=== PATIENT | male | born 1955 ===

== ENCOUNTER 2021-09-23 13:50 | Inpatient (IN) | payer MEDICARE, MEDICAID ==
[2021-09-23] MEDS ORDERED: Sodium Chloride 0.9% 1,000 ML IV ONE (14:38)
[2021-09-23] MEDS: Piperacillin/Tazobactam 3.375 GM in Sodium Chloride 0.9% 100 ML IV SCH ×2 (15:00→20:38)
--- NOTE | 2021-09-23 15:33 | PCM.HP.2 ---
H&P History of Present Illness - General Date of Service: 09/23/21 - History of Present Illness Initial Comments - Free Text/Narative: 66 yo male with pmh of hypertension who last night while going to the bathroom passed out. He was seen in [place] an he was noted to be hypotensive with WBC of 19,000 and Hgb of 15. He was bolused 3 liters and given vancomycin and zosyn. CT scan of abdomen and pelvis reported rectal wall thickening and inflammation. He was started on levophed. Repeat Hgb this morning was 13. It was reported to me that his stools are red and infrequent. Provider in [place] called requesting transfer as they have no ICU beds. They had tried transfe rring out but all other referral centers in the [facility] are full. I did notify provider that our GI and IR services are limited but it was felt He would be better stabilized here in [place]. - Related Data Allergies/Adverse Reactions: Allergies Allergy/AdvReac Type Severity Reaction Status Date / Time No Known Allergies Allergy Verified 09/23/21 14:29 H&P Review of Systems - Review of Systems: Review Of Systems: Comprehensive ROS is negative, except as noted in HPI. Exam - Exam Exam: See Below - Vital Signs Weight: 91 kg - Exam General: Alert, Oriented HEENT: Mucosa Moist & [place] Lungs: Clear to Auscultation, Normal Respiratory Effort Cardiovascular: Regular Rate, Regular Rhythm GI/Abdominal Exam: Normal Bowel Sounds, Soft, Non-Tender Extremities: Non-Tender, No Pedal Edema Skin: Warm, Dry, Intact Neurological: No: Focal Deficit - Patient Data Result Diagrams: 09/24/21 14:05 09/24/21 02:05 Problem List Initiated/Reviewed/Updated: Yes Orders Last 24hrs: Active Orders 24 hr Category Date Time Status CBC WITH AUTO DIFF [HEME] Routine Lab 09/23/21 14:18 Ordered COMPREHENSIVE METABOLIC PN,CMP [CHEM] Routine Lab 09/23/21 14:18 Ordered CULTURE BLOOD [BC] Stat Lab 09/23/21 14:48 Ordered CULTURE BLOOD [BC] Stat Lab 09/23/21 14:48 Ordered INR,PT,PROTHROMBIN TIME [COAG] Routine Lab 09/23/21 14:18 Ordered LACTIC ACID SEPSIS W/ REFLEX [LACTATE SEPSIS W/ REFLEX] Lab 09/23/21 14:19 Ordered [CHEM] Routine RED BLOOD CELLS LP [BBK] Stat Lab 09/23/21 14:53 Ordered TYPE AND SCREEN [BBK] Stat Lab 09/23/21 14:53 Ordered Norepinephrine Bit/0.9 % NaCl [Norepinephr-0.9% NaCl 4 Med 09/23/21 14:30 Active mg/250] 4 mg in 250 ml IV TITRATE Pharmacy to Dose - Vancomycin Med 09/23/21 15:00 Ordered 1 dose .XX ASDIRECTED Piperacillin/Tazobactam [Piperacil-Tazobact] 3.375 gm Med 09/23/21 15:00 Active Sodium Chloride 0.9% [Normal Saline AdvBag] 100 ml IV Q6H Sodium Chloride 0.9% [Normal Saline] 1,000 ml Med 09/23/21 14:38 Active IV .Bolus Blood Culture x2 Reflex Set [OM.PC] Stat Oth 09/23/21 14:48 Ordered Medication Orders Norepinephrine Bitartrate (Norepinephr-0.9% Nacl 4 Mg/250) 4 mg in 250 mls @ 7.5 mls/hr IV TITRATE VEE; Protocol Sodium Chloride (Normal Saline) 1,000 mls @ 999 mls/hr IV .Bolus ONE Stop: 09/23/21 15:38 Piperacillin Sod/Tazobactam (Sod 3.375 gm/ Sodium Chloride) 100 mls @ 200 mls/hr IV Q6H VEE Vancomycin HCl (Pharmacy To Dose - Vancomycin) 1 dose .XX ASDIRECTED [facility] Assessment/Plan Comment:: 65 yo male admitted for septic shock with likely source being colon and GI bleed Septic shock: will place central and a-line, continue Levophed Colitis: vancomycin and Zosyn
[2021-09-23 16:15] LABS: CARBON DIOXIDE,CO2 22.8 mmol/L (21.0-32.0); POTASSIUM,K 3.3 mmol/L (3.5-5.1)
--- NOTE | 2021-09-23 16:33 | PCM.PR.CLI ---
Central Line Insertion - Central Line Insertion Site: internal jugular (R) Prep: CDC/MBT Guidelines Lumen: triple Local Anesthesia - Lidocaine (Xylocaine): 2% Plain Local Anesthetic Volume: 2cc Ultrasound guided: Yes Micropuncture kit used: No CL Complications: No Secured with suture: Yes Post placement confirmation: all ports aspirated, all ports flushed Dressing applied: by provider, chlorhexidine disc used Central line comment: Anesthesia start 1500, stop 1550
--- NOTE | 2021-09-23 16:34 | PCM.PR.ALI ---
Arterial Line Insertion - Arterial Line Insertion Arterial Line Indication: hemodynamic monitoring Site: radial (L) Allens test: negative Prep: CDC/MBT Guidelines, Sterile Drapes, Chlorhexidine Gauge: 20g Local Anesthesia - Lidocaine (Xylocaine): 2% Plain Local Anesthetic Volume: 1cc Ultrasound guided: Yes Secured with suture: No Dressing applied: by provider Complications: No Arterial line comment: Anesthesia start:1550, Stop: 1620
[2021-09-23] MEDS: VANCOmycin 1.5 GM/300 ML 1.5 GM in Premix Bag 1 BAG IV SCH (17:00)
--- NOTE | 2021-09-23 17:17 | PN ---
THC Physician - Brief Progress [id number]/19/2021 17:02[facility] Erin Cheema ND - AMANDA (HUSSEIN) - AMANDA ICUNOLACiarra HUTSONpatrick of Service 09/23/2021 17:02HPI/Events of Note eICU admission [id number] male currently made to the ICU for septic shock secondary to int ra-abdominal source. Patient presented outside hospital with complaints of syncope and was noted to be hypotensive with associated leukocytosis. Patient was initiated on vancomycin/Zosyn and was given a sepsis bolus without improvement thus initiated on Levophed. CT abdomen revealed rectal thickenin g/inflammation and patient did have hematochezia as well. Patient was noted to have a 2 g drop in he moglobin thus transferred to [facility] for escalation of care and GI/IR evaluation.Patient seen on camera, laying flat in bed, appears to be sleeping at this time and does appear very comfortable currently on nasal cannula.Vital signs reviewedLabs/EMR reviewedSeptic shockLower GI bleedAKIRecommendations-Agre e with broad-spectrum antibiotic coverage-Blood culture sent and pending-Recommend stool culture if p ossible and C. difficile rule out if not already done at OSH. If patient is hypoxic recommend obtaini ng CXR.-Agree with serial Hb trend given concern for GI bleed. Started protonix BID, likely can soto e to daily dosing if hb is stable and no longer having hematochezia. -Continue to trend Cr, Avoid nep hrotoxins. Thank you for allowing us to participate in the care of your patient.Interventions Major-H ypotension - evaluation and management, Infection - evaluation and management, Sepsis - evaluation an d management, Shock - evaluation and managementIntermediate-Bleeding - evaluation and treatment with blood products
--- NOTE | 2021-09-23 17:54 | CR ---
Indication: Line placement, hypoxia Technique: Chest 1 view Comparison: None Findings/Impression: Right internal jugular central venous catheter tip terminates at the level of the cavoatrial junction. No pneumothorax. Normal cardiac size. Questionable faint nodular opacities scattered throughout the lungs could represent infection. Consider chest CT for further evaluation if clinically indicated. No effusion. No acute osseous abnormality. Surgical clips in the right upper quadrant. Dictated by Celsa Farley MD @ 09/23/2021 5:54:02 PM (Electronically Signed)
[2021-09-23 18:13] LABS: CORONAVIRUS COVID-19 NAA NEGATIVE (NEGATIVE); INFLUENZA A NAA NEGATIVE (NEGATIVE); INFLUENZA B NAA NEGATIVE (NEGATIVE)
[2021-09-23] MEDS ORDERED: Ondansetron 4 MG/2 ML SDV IVPUSH PRN (20:53)
[2021-09-23] MEDS ORDERED: Acetaminophen 325 MG Tab PO PRN (20:59)
[2021-09-23] MEDS ORDERED: Pantoprazole 40 MG/10 ML Syringe IVPUSH SCH (21:00)
[2021-09-23] MEDS: Pantoprazole 40 MG/10 ML Syringe IVPUSH SCH (21:00)
[2021-09-23] MEDS: Acetaminophen 325 MG Tab PO PRN (21:40)
[2021-09-24] MEDS: Sodium Chloride 0.9% 1,000 ML IV SCH ×4 (00:05→21:43)
[2021-09-24 02:34] LABS: POTASSIUM,K 3.3 mmol/L (3.5-5.1)
[2021-09-24] MEDS: Piperacillin/Tazobactam 3.375 GM in Sodium Chloride 0.9% 100 ML IV SCH ×4 (03:53→21:23)
[2021-09-24] MEDS: Acetaminophen 325 MG Tab PO PRN ×4 (03:57→22:00)
[2021-09-24] MEDS ORDERED: Sodium Chloride 0.65% Nasal Spray 45 ML Bottle NAS PRN (04:18)
[2021-09-24] MEDS: Pantoprazole 40 MG/10 ML Syringe IVPUSH SCH ×2 (08:06→21:08)
[2021-09-24] MEDS ORDERED: Potassium Chloride 10% 20 MEQ/15 ML Soln 30 ML UD Cup PO ONE (11:31)
--- NOTE | 2021-09-24 15:04 | PCM.PN ---
- General Info Date of Service: 09/24/21 - Review of Systems Systems Review Comment:: abdominal pain controlled, having loose stools - Patient Data Vitals - Most Recent: Last Vital Signs Temp 38.1 C 09/24/21 14:00 Pulse 93 09/24/21 14:00 Resp 22 H 09/24/21 14:00 BP 119/57 L 09/24/21 14:00 Pulse Ox 94 L 09/24/21 14:00 Weight - Most Recent: 91 kg I&O - Last 24 Hours: Intake & Output 09/24/21 09/24/21 09/24/21 06:59 14:59 22:59 Intake Total 90 480 Output Total 1625 Balance -1535 480 Lab Results Last 24 Hours: Laboratory Results - last 24 hr 09/23/21 09/23/21 09/23/21 Range/Units 15:20 15:20 15:20 WBC 15.11 H (4.0-11.0) K/uL RBC 4.29 L (4.50-5.90) M/uL Hgb 13.3 (13.0-17.0) g/dL Hct 38.6 (38.0-50.0) % MCV 90.0 (80.0-98.0) fL MCH 31.0 (27.0-32.0) pg MCHC 34.5 (31.0-37.0) g/dL RDW Std Deviation 44.5 (28.0-62.0) fl RDW Coeff of Yaneli 14 (11.0-15.0) % Plt Count 175 (150-400) K/uL MPV 10.40 (7.40-12.00) fL Neut % (Auto) 83.1 H (48.0-80.0) % Lymph % (Auto) 6.2 L (16.0-40.0) % [place] % (Auto) 10.5 (0.0-15.0) % Eos % (Auto) 0.1 (0.0-7.0) % Baso % (Auto) 0.1 (0.0-1.5) % Neut # (Auto) 12.6 H (1.4-5.7) K/uL Lymph # (Auto) 0.9 (0.6-2.4) K/uL [place] # (Auto) 1.6 H (0.0-0.8) K/uL Eos # (Auto) 0.0 (0.0-0.7) K/uL Baso # (Auto) 0.0 (0.0-0.1) K/uL Nucleated RBC % 0.0 /100WBC Nucleated RBCs # 0 K/uL INR 1.27 Sodium 141 (136-148) mmol/L Potassium 3.3 L (3.5-5.1) mmol/L Chloride 108 H (98-107) mmol/L Carbon Dioxide 22.8 (21.0-32.0) mmol/L BUN 23 H (7.0-18.0) mg/dL Creatinine 2.3 H (0.8-1.3) mg/dL Est Cr Clr Drug Dosing 30.98 mL/min Estimated GFR (MDRD) 28.7 ml/min Glucose 201 H (74-106) mg/dL Lactic Acid (0.4-2.0) mmol/L Calcium 7.6 L (8.5-10.1) mg/dL Total Bilirubin 0.7 (0.2-1.0) mg/dL AST 15 (15-37) IU/L ALT 17 (14-63) IU/L Alkaline Phosphatase 102 (46-116) U/L Total Protein 5.9 L (6.4-8.2) g/dL Albumin 2.7 L (3.4-5.0) g/dL Globulin 3.2 (2.6-4.0) g/dL Albumin/Globulin Ratio 0.8 L (0.9-1.6) Influenza Type A RNA (NEGATIVE) Influenza Type B RNA (NEGATIVE) SARS-CoV-2 RNA ([place]) (NEGATIVE) Blood Type Antibody Screen Crossmatch 09/23/21 09/23/21 09/23/21 Range/Units 15:20 15:31 16:45 WBC (4.0-11.0) K/uL RBC (4.50-5.90) M/uL Hgb (13.0-17.0) g/dL Hct (38.0-50.0) % MCV (80.0-98.0) fL MCH (27.0-32.0) pg MCHC (31.0-37.0) g/dL RDW Std Deviation (28.0-62.0) fl RDW Coeff of Yaneli (11.0-15.0) % Plt Count (150-400) K/uL MPV (7.40-12.00) fL Neut % (Auto) (48.0-80.0) % Lymph % (Auto) (16.0-40.0) % [place] % (Auto) (0.0-15.0) % Eos % (Auto) (0.0-7.0) % Baso % (Auto) (0.0-1.5) % Neut # (Auto) (1.4-5.7) K/uL Lymph # (Auto) (0.6-2.4) K/uL [place] # (Auto) (0.0-0.8) K/uL Eos # (Auto) (0.0-0.7) K/uL Baso # (Auto) (0.0-0.1) K/uL Nucleated RBC % /100WBC Nucleated RBCs # K/uL INR Sodium (136-148) mmol/L Potassium (3.5-5.1) mmol/L Chloride (98-107) mmol/L Carbon Dioxide (21.0-32.0) mmol/L BUN (7.0-18.0) mg/dL Creatinine (0.8-1.3) mg/dL Est Cr Clr Drug Dosing mL/min Estimated GFR (MDRD) ml/min Glucose (74-106) mg/dL Lactic Acid 2.2 H* (0.4-2.0) mmol/L Calcium (8.5-10.1) mg/dL Total Bilirubin (0.2-1.0) mg/dL AST (15-37) IU/L ALT (14-63) IU/L Alkaline Phosphatase (46-116) U/L Total Protein (6.4-8.2) g/dL Albumin (3.4-5.0) g/dL Globulin (2.6-4.0) g/dL Albumin/Globulin Ratio (0.9-1.6) Influenza Type A RNA NEGATIVE (NEGATIVE) Influenza Type B RNA NEGATIVE (NEGATIVE) SARS-CoV-2 RNA ([place]) NEGATIVE (NEGATIVE) Blood Type B POSITIVE Antibody Screen NEGATIVE Crossmatch See Detail 09/23/21 09/23/21 09/24/21 Range/Units 20:00 20:31 02:05 WBC 16.49 H (4.0-11.0) K/uL RBC 4.13 L (4.50-5.90) M/uL Hgb 12.5 L (13.0-17.0) g/dL Hct 36.9 L (38.0-50.0) % MCV 89.3 (80.0-98.0) fL MCH 30.3 (27.0-32.0) pg MCHC 33.9 (31.0-37.0) g/dL RDW Std Deviation 44.0 (28.0-62.0) fl RDW Coeff of Yaneli 14 (11.0-15.0) % Plt Count 196 (150-400) K/uL MPV 9.60 (7.40-12.00) fL Neut % (Auto) 81.4 H (48.0-80.0) % Lymph % (Auto) 9.2 L (16.0-40.0) % [place] % (Auto) 9.1 (0.0-15.0) % Eos % (Auto) 0.2 (0.0-7.0) % Baso % (Auto) 0.1 (0.0-1.5) % Neut # (Auto) 13.4 H (1.4-5.7) K/uL Lymph # (Auto) 1.5 (0.6-2.4) K/uL [place] # (Auto) 1.5 H (0.0-0.8) K/uL Eos # (Auto) 0.0 (0.0-0.7) K/uL Baso # (Auto) 0.0 (0.0-0.1) K/uL Nucleated RBC % 0.0 /100WBC Nucleated RBCs # 0 K/uL INR Sodium 144 (136-148) mmol/L Potassium 3.3 L (3.5-5.1) mmol/L Chloride 110 H (98-107) mmol/L Carbon Dioxide 22.0 (21.0-32.0) mmol/L BUN 22 H (7.0-18.0) mg/dL Creatinine 2.1 H (0.8-1.3) mg/dL Est Cr Clr Drug Dosing 33.93 mL/min Estimated GFR (MDRD) 31.9 ml/min Glucose 147 H (74-106) mg/dL Lactic Acid 0.7 (0.4-2.0) mmol/L Calcium 7.8 L (8.5-10.1) mg/dL Total Bilirubin 1.0 (0.2-1.0) mg/dL AST 16 (15-37) IU/L ALT 16 (14-63) IU/L Alkaline Phosphatase 83 (46-116) U/L Total Protein 5.7 L (6.4-8.2) g/dL Albumin 2.6 L (3.4-5.0) g/dL Globulin 3.1 (2.6-4.0) g/dL Albumin/Globulin Ratio 0.8 L (0.9-1.6) Influenza Type A RNA (NEGATIVE) Influenza Type B RNA (NEGATIVE) SARS-CoV-2 RNA ([place]) (NEGATIVE) Blood Type Antibody Screen Crossmatch 09/24/21 09/24/21 09/24/21 Range/Units 02:05 08:17 14:05 WBC 16.00 H 15.25 H 13.93 H (4.0-11.0) K/uL RBC 4.07 L 3.97 L 3.87 L (4.50-5.90) M/uL Hgb 12.6 L 12.1 L 11.8 L (13.0-17.0) g/dL Hct 36.7 L 35.8 L 34.7 L (38.0-50.0) % MCV 90.2 90.2 89.7 (80.0-98.0) fL MCH 31.0 30.5 30.5 (27.0-32.0) pg MCHC 34.3 33.8 34.0 (31.0-37.0) g/dL RDW Std Deviation 44.9 45.5 45.2 (28.0-62.0) fl RDW Coeff of Yaneli 14 14 14 (11.0-15.0) % Plt Count 170 181 168 (150-400) K/uL MPV 9.90 10.30 10.40 (7.40-12.00) fL Neut % (Auto) (48.0-80.0) % Lymph % (Auto) (16.0-40.0) % [place] % (Auto) (0.0-15.0) % Eos % (Auto) (0.0-7.0) % Baso % (Auto) (0.0-1.5) % Neut # (Auto) (1.4-5.7) K/uL Lymph # (Auto) (0.6-2.4) K/uL [place] # (Auto) (0.0-0.8) K/uL Eos # (Auto) (0.0-0.7) K/uL Baso # (Auto) (0.0-0.1) K/uL Nucleated RBC % 0.0 0.0 0.0 /100WBC Nucleated RBCs # 0 0 0 K/uL INR Sodium (136-148) mmol/L Potassium (3.5-5.1) mmol/L Chloride (98-107) mmol/L Carbon Dioxide (21.0-32.0) mmol/L BUN (7.0-18.0) mg/dL Creatinine (0.8-1.3) mg/dL Est Cr Clr Drug Dosing mL/min Estimated GFR (MDRD) ml/min Glucose (74-106) mg/dL Lactic Acid (0.4-2.0) mmol/L Calcium (8.5-10.1) mg/dL Total Bilirubin (0.2-1.0) mg/dL AST (15-37) IU/L ALT (14-63) IU/L Alkaline Phosphatase (46-116) U/L Total Protein (6.4-8.2) g/dL Albumin (3.4-5.0) g/dL Globulin (2.6-4.0) g/dL Albumin/Globulin Ratio (0.9-1.6) Influenza Type A RNA (NEGATIVE) Influenza Type B RNA (NEGATIVE) SARS-CoV-2 RNA ([place]) (NEGATIVE) Blood Type Antibody Screen Crossmatch Jose Results Last 24 Hours: Microbiology 09/24/21 06:35 C. difficile Antigen & Toxins A,B - Final Stool / Feces 09/23/21 15:25 Anaerobic Blood Culture - Final Blood - Venous Med Orders - Current: Current Medications Acetaminophen (Acetaminophen 325 Mg Tab) 650 mg PO Q6H PRN PRN Reason: Fever Last Admin: 09/24/21 09:58 Dose: 650 mg Documented by: Acetaminophen (Acetaminophen 325 Mg Tab) 650 mg PO Q6H PRN PRN Reason: PAIN Norepinephrine Bitartrate (Norepinephr-0.9% Nacl 4 Mg/250) 4 mg in 250 mls @ 7.5 mls/hr IV TITRATE VEE; Protocol Last Titration: 09/24/21 13:45 Dose: 0 mcg/min, 0 mls/hr Documented by: Piperacillin Sod/Tazobactam (Sod 3.375 gm/ Sodium Chloride) 100 mls @ 200 mls/hr IV Q6H [facility] Last Admin: 09/24/21 14:24 Dose: 200 mls/hr Documented by: Vancomycin HCl 1.5 gm/ Premix 300 mls @ 200 mls/hr IV Q24H [facility] Last Admin: 09/23/21 17:00 Dose: 200 mls/hr Documented by: Sodium Chloride (Normal Saline) 1,000 mls @ 125 mls/hr IV ASDIRECTED [facility] Last Admin: 09/24/21 08:05 Dose: 125 mls/hr Documented by: Ondansetron HCl (Ondansetron 4 Mg/2 Ml Sdv) 4 mg IVPUSH Q6H PRN PRN Reason: Nausea/Vomiting Pantoprazole Sodium (Pantoprazole 40 Mg/10 Ml Syringe) 40 mg IVPUSH Q12HR [facility] Last Admin: 09/24/21 08:06 Dose: 40 mg Documented by: Sodium Chloride (Sodium Chloride 0.65% Nasal [place] 45 Ml Bottle) 0 ml DUKE Q2H PRN PRN Reason: Dryness Vancomycin HCl (Pharmacy To Dose - Vancomycin) 1 dose .XX ASDIRECTED [facility] Discontinued Medications Sodium Chloride (Normal Saline) 1,000 mls @ 999 mls/hr IV .Bolus ONE Stop: 09/23/21 15:38 Last Admin: 09/23/21 14:40 Dose: 999 mls/hr Documented by: Pantoprazole Sodium (Pantoprazole 40 Mg/10 Ml Syringe) 40 mg IVPUSH Q12HR [facility] Last Admin: 09/23/21 21:18 Dose: Not Given Documented by: Potassium Chloride (Potassium Chloride 10% 20 Meq/15 Ml Soln 30 Ml Ud Cup) 40 meq PO ONETIME ONE Stop: 09/24/21 11:32 Last Admin: 09/24/21 12:02 Dose: 40 meq Documented by: - Exam Central Line Total Time: 0Days 9Hours General: Alert, Oriented Neck: Supple Lungs: Clear to Auscultation, Normal Respiratory Effort Cardiovascular: Regular Rate, Regular Rhythm GI/Abdominal Exam: Soft, Non-Tender, No Distention Extremities: Non-Tender, No Pedal Edema Skin: Warm, Dry, Intact Neurological: No New Focal Deficit - Patient Data Lab Results Last 24 hrs: Laboratory Results - last 24 hr 09/23/21 09/23/21 09/23/21 Range/Units 15:20 15:20 15:20 WBC 15.11 H (4.0-11.0) K/uL RBC 4.29 L (4.50-5.90) M/uL Hgb 13.3 (13.0-17.0) g/dL Hct 38.6 (38.0-50.0) % MCV 90.0 (80.0-98.0) fL MCH 31.0 (27.0-32.0) pg MCHC 34.5 (31.0-37.0) g/dL RDW Std Deviation 44.5 (28.0-62.0) fl RDW Coeff of Yaneli 14 (11.0-15.0) % Plt Count 175 (150-400) K/uL MPV 10.40 (7.40-12.00) fL Neut % (Auto) 83.1 H (48.0-80.0) % Lymph % (Auto) 6.2 L (16.0-40.0) % [place] % (Auto) 10.5 (0.0-15.0) % Eos % (Auto) 0.1 (0.0-7.0) % Baso % (Auto) 0.1 (0.0-1.5) % Neut # (Auto) 12.6 H (1.4-5.7) K/uL Lymph # (Auto) 0.9 (0.6-2.4) K/uL [place] # (Auto) 1.6 H (0.0-0.8) K/uL Eos # (Auto) 0.0 (0.0-0.7) K/uL Baso # (Auto) 0.0 (0.0-0.1) K/uL Nucleated RBC % 0.0 /100WBC Nucleated RBCs # 0 K/uL INR 1.27 Sodium 141 (136-148) mmol/L Potassium 3.3 L (3.5-5.1) mmol/L Chloride 108 H (98-107) mmol/L Carbon Dioxide 22.8 (21.0-32.0) mmol/L BUN 23 H (7.0-18.0) mg/dL Creatinine 2.3 H (0.8-1.3) mg/dL Est Cr Clr Drug Dosing 30.98 mL/min Estimated GFR (MDRD) 28.7 ml/min Glucose 201 H (74-106) mg/dL Lactic Acid (0.4-2.0) mmol/L Calcium 7.6 L (8.5-10.1) mg/dL Total Bilirubin 0.7 (0.2-1.0) mg/dL AST 15 (15-37) IU/L ALT 17 (14-63) IU/L Alkaline Phosphatase 102 (46-116) U/L Total Protein 5.9 L (6.4-8.2) g/dL Albumin 2.7 L (3.4-5.0) g/dL Globulin 3.2 (2.6-4.0) g/dL Albumin/Globulin Ratio 0.8 L (0.9-1.6) Influenza Type A RNA (NEGATIVE) Influenza Type B RNA (NEGATIVE) SARS-CoV-2 RNA ([place]) (NEGATIVE) Blood Type Antibody Screen Crossmatch 09/23/21 09/23/21 09/23/21 Range/Units 15:20 15:31 16:45 WBC (4.0-11.0) K/uL RBC (4.50-5.90) M/uL Hgb (13.0-17.0) g/dL Hct (38.0-50.0) % MCV (80.0-98.0) fL MCH (27.0-32.0) pg MCHC (31.0-37.0) g/dL RDW Std Deviation (28.0-62.0) fl RDW Coeff of Yaneli (11.0-15.0) % Plt Count (150-400) K/uL MPV (7.40-12.00) fL Neut % (Auto) (48.0-80.0) % Lymph % (Auto) (16.0-40.0) % [place] % (Auto) (0.0-15.0) % Eos % (Auto) (0.0-7.0) % Baso % (Auto) (0.0-1.5) % Neut # (Auto) (1.4-5.7) K/uL Lymph # (Auto) (0.6-2.4) K/uL [place] # (Auto) (0.0-0.8) K/uL Eos # (Auto) (0.0-0.7) K/uL Baso # (Auto) (0.0-0.1) K/uL Nucleated RBC % /100WBC Nucleated RBCs # K/uL INR Sodium (136-148) mmol/L Potassium (3.5-5.1) mmol/L Chloride (98-107) mmol/L Carbon Dioxide (21.0-32.0) mmol/L BUN (7.0-18.0) mg/dL Creatinine (0.8-1.3) mg/dL Est Cr Clr Drug Dosing mL/min Estimated GFR (MDRD) ml/min Glucose (74-106) mg/dL Lactic Acid 2.2 H* (0.4-2.0) mmol/L Calcium (8.5-10.1) mg/dL Total Bilirubin (0.2-1.0) mg/dL AST (15-37) IU/L ALT (14-63) IU/L Alkaline Phosphatase (46-116) U/L Total Protein (6.4-8.2) g/dL Albumin (3.4-5.0) g/dL Globulin (2.6-4.0) g/dL Albumin/Globulin Ratio (0.9-1.6) Influenza Type A RNA NEGATIVE (NEGATIVE) Influenza Type B RNA NEGATIVE (NEGATIVE) SARS-CoV-2 RNA ([place]) NEGATIVE (NEGATIVE) Blood Type B POSITIVE Antibody Screen NEGATIVE Crossmatch See Detail 09/23/21 09/23/21 09/24/21 Range/Units 20:00 20:31 02:05 WBC 16.49 H (4.0-11.0) K/uL RBC 4.13 L (4.50-5.90) M/uL Hgb 12.5 L (13.0-17.0) g/dL Hct 36.9 L (38.0-50.0) % MCV 89.3 (80.0-98.0) fL MCH 30.3 (27.0-32.0) pg MCHC 33.9 (31.0-37.0) g/dL RDW Std Deviation 44.0 (28.0-62.0) fl RDW Coeff of Yaneli 14 (11.0-15.0) % Plt Count 196 (150-400) K/uL MPV 9.60 (7.40-12.00) fL Neut % (Auto) 81.4 H (48.0-80.0) % Lymph % (Auto) 9.2 L (16.0-40.0) % [place] % (Auto) 9.1 (0.0-15.0) % Eos % (Auto) 0.2 (0.0-7.0) % Baso % (Auto) 0.1 (0.0-1.5) % Neut # (Auto) 13.4 H (1.4-5.7) K/uL Lymph # (Auto) 1.5 (0.6-2.4) K/uL [place] # (Auto) 1.5 H (0.0-0.8) K/uL Eos # (Auto) 0.0 (0.0-0.7) K/uL Baso # (Auto) 0.0 (0.0-0.1) K/uL Nucleated RBC % 0.0 /100WBC Nucleated RBCs # 0 K/uL INR Sodium 144 (136-148) mmol/L Potassium 3.3 L (3.5-5.1) mmol/L Chloride 110 H (98-107) mmol/L Carbon Dioxide 22.0 (21.0-32.0) mmol/L BUN 22 H (7.0-18.0) mg/dL Creatinine 2.1 H (0.8-1.3) mg/dL Est Cr Clr Drug Dosing 33.93 mL/min Estimated GFR (MDRD) 31.9 ml/min Glucose 147 H (74-106) mg/dL Lactic Acid 0.7 (0.4-2.0) mmol/L Calcium 7.8 L (8.5-10.1) mg/dL Total Bilirubin 1.0 (0.2-1.0) mg/dL AST 16 (15-37) IU/L ALT 16 (14-63) IU/L Alkaline Phosphatase 83 (46-116) U/L Total Protein 5.7 L (6.4-8.2) g/dL Albumin 2.6 L (3.4-5.0) g/dL Globulin 3.1 (2.6-4.0) g/dL Albumin/Globulin Ratio 0.8 L (0.9-1.6) Influenza Type A RNA (NEGATIVE) Influenza Type B RNA (NEGATIVE) SARS-CoV-2 RNA ([place]) (NEGATIVE) Blood Type Antibody Screen Crossmatch 09/24/21 09/24/21 09/24/21 Range/Units 02:05 08:17 14:05 WBC 16.00 H 15.25 H 13.93 H (4.0-11.0) K/uL RBC 4.07 L 3.97 L 3.87 L (4.50-5.90) M/uL Hgb 12.6 L 12.1 L 11.8 L (13.0-17.0) g/dL Hct 36.7 L 35.8 L 34.7 L (38.0-50.0) % MCV 90.2 90.2 89.7 (80.0-98.0) fL MCH 31.0 30.5 30.5 (27.0-32.0) pg MCHC 34.3 33.8 34.0 (31.0-37.0) g/dL RDW Std Deviation 44.9 45.5 45.2 (28.0-62.0) fl RDW Coeff of Yaneli 14 14 14 (11.0-15.0) % Plt Count 170 181 168 (150-400) K/uL MPV 9.90 10.30 10.40 (7.40-12.00) fL Neut % (Auto) (48.0-80.0) % Lymph % (Auto) (16.0-40.0) % [place] % (Auto) (0.0-15.0) % Eos % (Auto) (0.0-7.0) % Baso % (Auto) (0.0-1.5) % Neut # (Auto) (1.4-5.7) K/uL Lymph # (Auto) (0.6-2.4) K/uL [place] # (Auto) (0.0-0.8) K/uL Eos # (Auto) (0.0-0.7) K/uL Baso # (Auto) (0.0-0.1) K/uL Nucleated RBC % 0.0 0.0 0.0 /100WBC Nucleated RBCs # 0 0 0 K/uL INR Sodium (136-148) mmol/L Potassium (3.5-5.1) mmol/L Chloride (98-107) mmol/L Carbon Dioxide (21.0-32.0) mmol/L BUN (7.0-18.0) mg/dL Creatinine (0.8-1.3) mg/dL Est Cr Clr Drug Dosing mL/min Estimated GFR (MDRD) ml/min Glucose (74-106) mg/dL Lactic Acid (0.4-2.0) mmol/L Calcium (8.5-10.1) mg/dL Total Bilirubin (0.2-1.0) mg/dL AST (15-37) IU/L ALT (14-63) IU/L Alkaline Phosphatase (46-116) U/L Total Protein (6.4-8.2) g/dL Albumin (3.4-5.0) g/dL Globulin (2.6-4.0) g/dL Albumin/Globulin Ratio (0.9-1.6) Influenza Type A RNA (NEGATIVE) Influenza Type B RNA (NEGATIVE) SARS-CoV-2 RNA ([place]) (NEGATIVE) Blood Type Antibody Screen Crossmatch Result Diagrams: 09/24/21 14:05 09/24/21 02:05 Jose Results Last 24 hrs: Microbiology 09/24/21 06:35 C. difficile Antigen & Toxins A,B - Final Stool / Feces 09/23/21 15:25 Anaerobic Blood Culture - Final Blood - Venous Sepsis Event Note - Evaluation Sepsis Screening Result: Severe Sepsis Risk - Focused Exam Vital Signs: Vital Signs Temp Temp Pulse Resp BP Pulse Ox 09/24/21 14:00 38.1 C 93 22 H 119/57 L 94 L 09/24/21 13:00 96 32 H 106/53 L 96 09/24/21 12:00 37.7 C 90 22 H 113/51 L 94 L 09/24/21 11:00 92 19 115/52 L 94 L 09/24/21 10:00 37.7 C 100 24 H 121/53 L 93 L 09/24/21 09:58 37.7 C 09/24/21 09:00 89 22 H 113/51 L 92 L 09/24/21 08:00 37.7 C 93 22 H 130/53 L 93 L 09/24/21 07:00 93 23 H 122/51 L 93 L 09/24/21 06:00 91 24 H 107/46 L 91 L 09/24/21 05:15 37.9 C 09/24/21 05:00 37.9 C 97 27 H 110/47 L 90 L 09/24/21 04:00 97 11 L 120/52 L 95 09/24/21 03:57 38.0 C - Problem List Review Problem List Initiated/Reviewed/Updated: Yes - My Orders Last 24 Hours: My Active Orders 09/23/21 14:30 Norepinephrine Bit/0.9 % NaCl [Norepinephr-0.9% NaCl 4 mg/250] 4 mg in 250 ml IV TITRATE 09/23/21 14:48 Blood Culture x2 Reflex Set [OM.PC] Stat 09/23/21 15:00 Pharmacy to Dose - Vancomycin 1 dose .XX ASDIRECTED Piperacillin/Tazobactam [Piperacil-Tazobact] 3.375 gm Sodium Chloride 0.9% [Normal Saline AdvBag] 100 ml IV Q6H 09/23/21 15:25 CULTURE BLOOD [BC] Stat 09/23/21 15:31 CULTURE BLOOD [BC] Stat RED BLOOD CELLS LP [BBK] Stat TYPE AND SCREEN [BBK] Stat 09/23/21 15:37 STOOL CULTURE/SHIGA TOXIN [MREF] Routine 09/23/21 15:46 Patient Status [ADT] Routine Oxygen Therapy [RC] PRN VTE/DVT Education [RC] PER UNIT ROUTINE Vital Signs [RC] Q1H Sequential Compression Device [OM.PC] Per Unit Routine Resuscitation Status Routine 09/23/21 15:47 Antiembolic Devices [RC] PER UNIT ROUTINE 09/23/21 17:00 VANCOmycin 1.5 GM/300 ML 1.5 gm Premix Bag 1 bag IV Q24H 09/23/21 17:28 Isolation [COMM] Routine 09/23/21 20:59 Acetaminophen [TylenoL] 650 mg PO Q6H PRN 09/23/21 23:30 Sodium Chloride 0.9% [Normal Saline] 1,000 ml IV ASDIRECTED 09/24/21 Lunch Clear Liquid Diet [DIET] 09/24/21 22:00 CBC WITH AUTO DIFF [HEME] Routine 09/25/21 05:11 CBC WITH AUTO DIFF [HEME] AM COMPREHENSIVE METABOLIC PN,CMP [CHEM] AM 09/26/21 16:00 VANCOMYCIN TROUGH [CHEM] Routine - Plan Plan:: 65 yo male admitted for septic shock with likely source being colon and GI bleed Septic shock: weaning of Levophed Colitis: vancomycin and Zosyn, hgb stable, does not appear to have a significant bleed.
--- NOTE | 2021-09-24 15:08 | PCM.CONS ---
H&P History of Present Illness - General Date of Service: 09/24/21 Admit Problem/Dx: Admission Diagnosis/Problem Admission Diagnosis/Problem Sepsis Source of Information: Patient History Limitations: Reports: No Limitations - History of Present Illness Initial Comments - Free Text/Narative: Patient is a 65 year old male with HTN, HLD, Type II diabetes, INNA, Parkinsons, Prostate cancer s/p resection, GERD, diverticulosis, and CHF with diastolic dysfunction and CAD who presented to the ICU as a transfer for septic shock. The patient states that since Sunday he has been having multiple episodes of diarrhea. He had a syncopal episode associated with a bloody BM. He was brought to [facility]. He was placed on IV pressors and found to be in NIKI. CT scan of the abdomen pelvis showed a thickened and inflamed rectum. He had a colonoscopy in 2019 which was normal other than diverticulosis. He was transferred here due to lack of ICU beds in the state. He was weaned off pressors this afternoon. He continues to have watery brown BMs. C/Diff was negative. Stool cultures are pending. Patient complains of weakness. neck Pain Score (Numeric/FACES): 7 headache Pain Score (Numeric/FACES): 8 - Related Data Allergies/Adverse Reactions: Allergies Allergy/AdvReac Type Severity Reaction Status Date / Time No Known Allergies Allergy Verified 09/23/21 14:29 Past Medical History HEENT History: Reports: Impaired Vision Other HEENT History: unable to obtain history due to patient condition other than what was received in report before arrival Cardiovascular History: Reports: Heart Failure, Hypertension Gastrointestinal History: Reports: GI Bleed, Other (See Below) Other Gastrointestinal History: Prostatitis, Prostate Cancer Genitourinary History: Reports: Prostate Disorder Other Musculoskeletal History: unable to obtain history due to patient condition other than what was received in report before arrival Other Neuro History: unable to obtain history due to patient condition other than what was received in report before arrival Other Psychiatric History: unable to obtain history due to patient condition other than what was received in report before arrival Endocrine/Metabolic History: Reports: Diabetes, Type II Other Endocrine/Metabolic History: unable to obtain history due to patient condition other than what was received in report before arrival Other Hematologic History: unable to obtain history due to patient condition other than what was received in report before arrival Other Immunologic History: unable to obtain history due to patient condition other than what was received in report before arrival Oncologic (Cancer) History: Reports: Prostate Other Oncologic History: unable to obtain history due to patient condition other than what was received in report before arrival Other Dermatologic History: unable to obtain history due to patient condition other than what was received in report before arrival - Infectious Disease History Other Infectious Disease History: unable to obtain history due to patient condition other than what was received in report before arrival - Past Surgical History HEENT Surgical History: Reports: Other (See Below) Other HEENT Surgeries/Procedures: unable to obtain history due to patient condition other than what was received in report before arrival GI Surgical History: Reports: Other (See Below) Other GI Surgeries/Procedures: Prostate removal Male Surgical History: Reports: Prostatectomy Other Endocrine Surgeries/Procedures: unable to obtain history due to patient condition other than what was received in report before arrival Other Neurological Surgeries/Procedures: unable to obtain history due to patient condition other than what was received in report before arrival Other Musculoskeletal Surgeries/Procedures:: unable to obtain history due to patient condition other than what was received in report before arrival H&P Review of Systems - Review of Systems: Review Of Systems: Comprehensive ROS is negative, except as noted in HPI. Exam - Exam Exam: See Below - Vital Signs Vital Signs: Last Vital Signs Temp 38.1 C 09/24/21 14:00 Pulse 93 09/24/21 14:00 Resp 22 H 09/24/21 14:00 BP 119/57 L 09/24/21 14:00 Pulse Ox 94 L 09/24/21 14:00 Weight: 91 kg - Exam Quality Assessment: Supplemental Oxygen General: Mild Distress, Lethargic Lungs: Clear to Auscultation, Normal Respiratory Effort Cardiovascular: Regular Rate, Regular Rhythm GI/Abdominal Exam: Soft, Non-Tender, No Distention, No Mass Rectal (Males) Exam: Other (large amount of liquid stool. Poor rectal tone. No masses palpated with RICKY. No bloody or black appearing stool. ) Back Exam: Normal Inspection - Patient Data Lab Results Last 24 hrs: Laboratory Results - last 24 hr 09/23/21 09/23/21 09/23/21 Range/Units 15:20 15:20 15:20 WBC 15.11 H (4.0-11.0) K/uL RBC 4.29 L (4.50-5.90) M/uL Hgb 13.3 (13.0-17.0) g/dL Hct 38.6 (38.0-50.0) % MCV 90.0 (80.0-98.0) fL MCH 31.0 (27.0-32.0) pg MCHC 34.5 (31.0-37.0) g/dL RDW Std Deviation 44.5 (28.0-62.0) fl RDW Coeff of Yaneli 14 (11.0-15.0) % Plt Count 175 (150-400) K/uL MPV 10.40 (7.40-12.00) fL Neut % (Auto) 83.1 H (48.0-80.0) % Lymph % (Auto) 6.2 L (16.0-40.0) % Letcher % (Auto) 10.5 (0.0-15.0) % Eos % (Auto) 0.1 (0.0-7.0) % Baso % (Auto) 0.1 (0.0-1.5) % Neut # (Auto) 12.6 H (1.4-5.7) K/uL Lymph # (Auto) 0.9 (0.6-2.4) K/uL Letcher # (Auto) 1.6 H (0.0-0.8) K/uL Eos # (Auto) 0.0 (0.0-0.7) K/uL Baso # (Auto) 0.0 (0.0-0.1) K/uL Nucleated RBC % 0.0 /100WBC Nucleated RBCs # 0 K/uL INR 1.27 Sodium 141 (136-148) mmol/L Potassium 3.3 L (3.5-5.1) mmol/L Chloride 108 H (98-107) mmol/L Carbon Dioxide 22.8 (21.0-32.0) mmol/L BUN 23 H (7.0-18.0) mg/dL Creatinine 2.3 H (0.8-1.3) mg/dL Est Cr Clr Drug Dosing 30.98 mL/min Estimated GFR (MDRD) 28.7 ml/min Glucose 201 H (74-106) mg/dL Lactic Acid (0.4-2.0) mmol/L Calcium 7.6 L (8.5-10.1) mg/dL Total Bilirubin 0.7 (0.2-1.0) mg/dL AST 15 (15-37) IU/L ALT 17 (14-63) IU/L Alkaline Phosphatase 102 (46-116) U/L Total Protein 5.9 L (6.4-8.2) g/dL Albumin 2.7 L (3.4-5.0) g/dL Globulin 3.2 (2.6-4.0) g/dL Albumin/Globulin Ratio 0.8 L (0.9-1.6) Influenza Type A RNA (NEGATIVE) Influenza Type B RNA (NEGATIVE) SARS-CoV-2 RNA ([place]) (NEGATIVE) Blood Type Antibody Screen Crossmatch 09/23/21 09/23/21 09/23/21 Range/Units 15:20 15:31 16:45 WBC (4.0-11.0) K/uL RBC (4.50-5.90) M/uL Hgb (13.0-17.0) g/dL Hct (38.0-50.0) % MCV (80.0-98.0) fL MCH (27.0-32.0) pg MCHC (31.0-37.0) g/dL RDW Std Deviation (28.0-62.0) fl RDW Coeff of Yaneli (11.0-15.0) % Plt Count (150-400) K/uL MPV (7.40-12.00) fL Neut % (Auto) (48.0-80.0) % Lymph % (Auto) (16.0-40.0) % Letcher % (Auto) (0.0-15.0) % Eos % (Auto) (0.0-7.0) % Baso % (Auto) (0.0-1.5) % Neut # (Auto) (1.4-5.7) K/uL Lymph # (Auto) (0.6-2.4) K/uL Letcher # (Auto) (0.0-0.8) K/uL Eos # (Auto) (0.0-0.7) K/uL Baso # (Auto) (0.0-0.1) K/uL Nucleated RBC % /100WBC Nucleated RBCs # K/uL INR Sodium (136-148) mmol/L Potassium (3.5-5.1) mmol/L Chloride (98-107) mmol/L Carbon Dioxide (21.0-32.0) mmol/L BUN (7.0-18.0) mg/dL Creatinine (0.8-1.3) mg/dL Est Cr Clr Drug Dosing mL/min Estimated GFR (MDRD) ml/min Glucose (74-106) mg/dL Lactic Acid 2.2 H* (0.4-2.0) mmol/L Calcium (8.5-10.1) mg/dL Total Bilirubin (0.2-1.0) mg/dL AST (15-37) IU/L ALT (14-63) IU/L Alkaline Phosphatase (46-116) U/L Total Protein (6.4-8.2) g/dL Albumin (3.4-5.0) g/dL Globulin (2.6-4.0) g/dL Albumin/Globulin Ratio (0.9-1.6) Influenza Type A RNA NEGATIVE (NEGATIVE) Influenza Type B RNA NEGATIVE (NEGATIVE) SARS-CoV-2 RNA ([place]) NEGATIVE (NEGATIVE) Blood Type B POSITIVE Antibody Screen NEGATIVE Crossmatch See Detail 09/23/21 09/23/21 09/24/21 Range/Units 20:00 20:31 02:05 WBC 16.49 H (4.0-11.0) K/uL RBC 4.13 L (4.50-5.90) M/uL Hgb 12.5 L (13.0-17.0) g/dL Hct 36.9 L (38.0-50.0) % MCV 89.3 (80.0-98.0) fL MCH 30.3 (27.0-32.0) pg MCHC 33.9 (31.0-37.0) g/dL RDW Std Deviation 44.0 (28.0-62.0) fl RDW Coeff of Yaneli 14 (11.0-15.0) % Plt Count 196 (150-400) K/uL MPV 9.60 (7.40-12.00) fL Neut % (Auto) 81.4 H (48.0-80.0) % Lymph % (Auto) 9.2 L (16.0-40.0) % Letcher % (Auto) 9.1 (0.0-15.0) % Eos % (Auto) 0.2 (0.0-7.0) % Baso % (Auto) 0.1 (0.0-1.5) % Neut # (Auto) 13.4 H (1.4-5.7) K/uL Lymph # (Auto) 1.5 (0.6-2.4) K/uL Letcher # (Auto) 1.5 H (0.0-0.8) K/uL Eos # (Auto) 0.0 (0.0-0.7) K/uL Baso # (Auto) 0.0 (0.0-0.1) K/uL Nucleated RBC % 0.0 /100WBC Nucleated RBCs # 0 K/uL INR Sodium 144 (136-148) mmol/L Potassium 3.3 L (3.5-5.1) mmol/L Chloride 110 H (98-107) mmol/L Carbon Dioxide 22.0 (21.0-32.0) mmol/L BUN 22 H (7.0-18.0) mg/dL Creatinine 2.1 H (0.8-1.3) mg/dL Est Cr Clr Drug Dosing 33.93 mL/min Estimated GFR (MDRD) 31.9 ml/min Glucose 147 H (74-106) mg/dL Lactic Acid 0.7 (0.4-2.0) mmol/L Calcium 7.8 L (8.5-10.1) mg/dL Total Bilirubin 1.0 (0.2-1.0) mg/dL AST 16 (15-37) IU/L ALT 16 (14-63) IU/L Alkaline Phosphatase 83 (46-116) U/L Total Protein 5.7 L (6.4-8.2) g/dL Albumin 2.6 L (3.4-5.0) g/dL Globulin 3.1 (2.6-4.0) g/dL Albumin/Globulin Ratio 0.8 L (0.9-1.6) Influenza Type A RNA (NEGATIVE) Influenza Type B RNA (NEGATIVE) SARS-CoV-2 RNA ([place]) (NEGATIVE) Blood Type Antibody Screen Crossmatch 09/24/21 09/24/21 09/24/21 Range/Units 02:05 08:17 14:05 WBC 16.00 H 15.25 H 13.93 H (4.0-11.0) K/uL RBC 4.07 L 3.97 L 3.87 L (4.50-5.90) M/uL Hgb 12.6 L 12.1 L 11.8 L (13.0-17.0) g/dL Hct 36.7 L 35.8 L 34.7 L (38.0-50.0) % MCV 90.2 90.2 89.7 (80.0-98.0) fL MCH 31.0 30.5 30.5 (27.0-32.0) pg MCHC 34.3 33.8 34.0 (31.0-37.0) g/dL RDW Std Deviation 44.9 45.5 45.2 (28.0-62.0) fl RDW Coeff of Yaneli 14 14 14 (11.0-15.0) % Plt Count 170 181 168 (150-400) K/uL MPV 9.90 10.30 10.40 (7.40-12.00) fL Neut % (Auto) (48.0-80.0) % Lymph % (Auto) (16.0-40.0) % Letcher % (Auto) (0.0-15.0) % Eos % (Auto) (0.0-7.0) % Baso % (Auto) (0.0-1.5) % Neut # (Auto) (1.4-5.7) K/uL Lymph # (Auto) (0.6-2.4) K/uL Letcher # (Auto) (0.0-0.8) K/uL Eos # (Auto) (0.0-0.7) K/uL Baso # (Auto) (0.0-0.1) K/uL Nucleated RBC % 0.0 0.0 0.0 /100WBC Nucleated RBCs # 0 0 0 K/uL INR Sodium (136-148) mmol/L Potassium (3.5-5.1) mmol/L Chloride (98-107) mmol/L Carbon Dioxide (21.0-32.0) mmol/L BUN (7.0-18.0) mg/dL Creatinine (0.8-1.3) mg/dL Est Cr Clr Drug Dosing mL/min Estimated GFR (MDRD) ml/min Glucose (74-106) mg/dL Lactic Acid (0.4-2.0) mmol/L Calcium (8.5-10.1) mg/dL Total Bilirubin (0.2-1.0) mg/dL AST (15-37) IU/L ALT (14-63) IU/L Alkaline Phosphatase (46-116) U/L Total Protein (6.4-8.2) g/dL Albumin (3.4-5.0) g/dL Globulin (2.6-4.0) g/dL Albumin/Globulin Ratio (0.9-1.6) Influenza Type A RNA (NEGATIVE) Influenza Type B RNA (NEGATIVE) SARS-CoV-2 RNA ([place]) (NEGATIVE) Blood Type Antibody Screen Crossmatch Result Diagrams: 09/24/21 14:05 09/24/21 02:05 Jose Results Last 24 hrs: Microbiology 09/24/21 06:35 C. difficile Antigen & Toxins A,B - Final Stool / Feces 09/23/21 15:25 Anaerobic Blood Culture - Final Blood - Venous Sepsis Event Note - Evaluation Sepsis Screening Result: Severe Sepsis Risk - Focused Exam Vital Signs: Vital Signs Temp Temp Pulse Resp BP Pulse Ox 09/24/21 14:00 38.1 C 93 22 H 119/57 L 94 L 09/24/21 13:00 96 32 H 106/53 L 96 09/24/21 12:00 37.7 C 90 22 H 113/51 L 94 L 09/24/21 11:00 92 19 115/52 L 94 L 09/24/21 10:00 37.7 C 100 24 H 121/53 L 93 L 09/24/21 09:58 37.7 C 09/24/21 09:00 89 22 H 113/51 L 92 L 09/24/21 08:00 37.7 C 93 22 H 130/53 L 93 L 09/24/21 07:00 93 23 H 122/51 L 93 L 09/24/21 06:00 91 24 H 107/46 L 91 L 09/24/21 05:15 37.9 C 09/24/21 05:00 37.9 C 97 27 H 110/47 L 90 L 09/24/21 04:00 97 11 L 120/52 L 95 09/24/21 03:57 38.0 C 09/24/21 03:00 97 20 129/54 L 94 L Consult PN Assessment/Plan (1) Septic shock SNOMED Code(s): 77774273 Code(s): A41.9 - SEPSIS, UNSPECIFIED ORGANISM; R65.21 - SEVERE SEPSIS WITH SEPTIC SHOCK Current Visit: Yes (2) Proctitis SNOMED Code(s): 4001610 Code(s): K62.89 - OTHER SPECIFIED DISEASES OF ANUS AND RECTUM Current Visit: Yes (3) NIKI (acute kidney injury) SNOMED Code(s): 21415224, 68438277 Code(s): N17.9 - ACUTE KIDNEY FAILURE, UNSPECIFIED Current Visit: Yes Problem List Initiated/Reviewed/Updated: Yes Plan: Would suggest a sigmoidoscopy once the patient becomes more stable, likely before discharge. Will continue to follow along and follow up on stool cultures. Will discuss this further with patient and family in coming days. Continue current antibiotics and cares.
[2021-09-24] MEDS ORDERED: Diltiazem 25 MG/5 ML SDV IVPUSH ONE (15:40)
[2021-09-24] MEDS ORDERED: Diltiazem 100 MG in Sodium Chloride 0.9% 100 ML IV SCH (16:00)
[2021-09-24] MEDS: VANCOmycin 1.5 GM/300 ML 1.5 GM in Premix Bag 1 BAG IV SCH (16:01)
[2021-09-24] MEDS ORDERED: Heparin Sodium/0.45% NaCl 500 ML IV SCH (16:15)
--- NOTE | 2021-09-24 16:25 | PN ---
THC Physician - Brief Progress [id number]/20/2021 15:44[facility] Erin Cheema, [place] - DANIELN ([facility] - AMANDA [facility]PITALRAGHAVENDRA TOMpatrick of Service 09/24/2021 15:44HPI/Events of Note eICU Progress NotePt is a 65 yo M admitted on 09/23 for septic shock secondary to proctitis wit h a LGIB. He did require Levophed upon admission, but was successfully weaned off this afternoon. Abo ut 30 minutes ago, he went into new onset a fib with RVR. His HR was sustained at 168 with a BP of 89 /42. He was given a dose of Cardizem 20 with improvement in his SBP to 102 and a HR to 110, so we are initiating a Cardizem gtt. He did have melanotic stools upon presentation, but no significant decrea se in his hgb. Even so, we are going to hold on initiating a Heparin gtt for now as his risk of bleed ing out weighs the risks associated with new onset a fib. We will also continue to monitor his hgb ac cordingly and consider OAC if he remains stable and in afib as he recovers from his sepsis. Current h gb is 11.8 and he is on BID PPI. He does not have a recent 2D Echo, so we will order one when availab le to be completed. Case was discussed with his nurse Caprice. eICU Recommendations:1) Give a dose o f Cardizem 20 mg IVP x 1 now with transition to a gtt if well tolerated2) Consider OAC/Heparin gtt if hgb remains stable and he continues to have a fib3) 2D Echo when available4) Continue empiric antibi otics5) Monitor hgb 6) Continue IVF with resolving sepsis7) Initiate O2 via NC if SpO2 < 92% and may need to also discontinue IVFThank you for allowing us to participate in the care of your patient.Inte rventions Major-Arrhythmia - evaluation and management, Hypotension - evaluation and management, Infe ction - evaluation and hiyztswqlmVarweeyikifk-Usmo-cenlxqru therapies (e.g. VTE, beta beulah, etc.), Bleeding - evaluation and treatment with blood products, Communication with other healthcare provide rs and/or family, Medication change / dose adjustmentElectronically Signed by: YAYA WELSH (DO) o n 09/24/2021 16:25
--- NOTE | 2021-09-24 19:21 | PN ---
THC Physician - Brief Progress [id number]/20/2021 19:18[facility] Erin Cheema, MIESHA - DANIELN ([facility] - AMANDA DAVIDRAGHAVENDRA HUTSONBbo of Service 09/24/2021 19:18HPI/Events of Note Pt's been persistently febrile and SBP is 97 with a HR vasilating between 102 and 118. He remai ns on RA with a SpO2 of 97%, so instead of titrating up the Cardizem, we are going to trial a fluid b olus. Case was discussed with his nurse Caprice and if he has no further improvement with the IVF, vasquez chakraborty will communicate again shortly.Interventions Major-Arrhythmia - evaluation and management, Hypotens ion - evaluation and management, Sepsis - evaluation and managementIntermediate-Communication with ot her healthcare providers and/or family, Medication change / dose adjustment
[2021-09-24] MEDS ORDERED: Sodium Chloride 0.9% 500 ML IV ONE (19:23)
[2021-09-24] MEDS ORDERED: Amiodarone In Dextrose,Iso-Osm 150 MG in Premix Bag 1 BAG IV ONE ×2 (20:34)
[2021-09-24] MEDS ORDERED: Digoxin 500 MCG/2 ML Amp IVPUSH ONE (20:34)
[2021-09-25] MEDS: Piperacillin/Tazobactam 3.375 GM in Sodium Chloride 0.9% 100 ML IV SCH ×4 (03:51→20:09)
[2021-09-25] MEDS: Acetaminophen 325 MG Tab PO PRN ×3 (04:15→16:35)
[2021-09-25 07:02] LABS: CARBON DIOXIDE,CO2 19.8 mmol/L (21.0-32.0); POTASSIUM,K 3.7 mmol/L (3.5-5.1)
[2021-09-25] MEDS: Pantoprazole 40 MG/10 ML Syringe IVPUSH SCH (08:03)
[2021-09-25] MEDS ORDERED: PANTOPRAZOLE IV SCH (08:15)
--- NOTE | 2021-09-25 10:31 | PCM.PN ---
- General Info Date of Service: 09/25/21 - Review of Systems Systems Review Comment:: reports neck pain - Patient Data Vitals - Most Recent: Last Vital Signs Temp 37.1 C 09/25/21 08:00 Pulse 79 09/25/21 10:00 Resp 19 09/25/21 10:00 BP 128/59 L 09/25/21 10:00 Pulse Ox 95 09/25/21 10:00 Weight - Most Recent: 100.7 kg I&O - Last 24 Hours: Intake & Output 09/24/21 09/25/21 09/25/21 22:59 06:59 14:59 Intake Total 3131 3050 1000 Output Total 900 475 Balance 2231 1555 1000 Lab Results Last 24 Hours: Laboratory Results - last 24 hr 09/24/21 09/24/21 09/24/21 Range/Units 14:05 16:16 22:19 WBC 13.93 H 20.95 H (4.0-11.0) K/uL RBC 3.87 L 4.01 L (4.50-5.90) M/uL Hgb 11.8 L 12.3 L (13.0-17.0) g/dL Hct 34.7 L 36.1 L (38.0-50.0) % MCV 89.7 90.0 (80.0-98.0) fL MCH 30.5 30.7 (27.0-32.0) pg MCHC 34.0 34.1 (31.0-37.0) g/dL RDW Std Deviation 45.2 46.2 (28.0-62.0) fl RDW Coeff of Yaneli 14 14 (11.0-15.0) % Plt Count 168 187 (150-400) K/uL MPV 10.40 10.20 (7.40-12.00) fL Neut % (Auto) 82.4 H (48.0-80.0) % Lymph % (Auto) 6.8 L (16.0-40.0) % Glenn % (Auto) 10.6 (0.0-15.0) % Eos % (Auto) 0.2 (0.0-7.0) % Baso % (Auto) 0.0 (0.0-1.5) % Neut # (Auto) 17.3 H (1.4-5.7) K/uL Lymph # (Auto) 1.4 (0.6-2.4) K/uL Glenn # (Auto) 2.2 H (0.0-0.8) K/uL Eos # (Auto) 0.0 (0.0-0.7) K/uL Baso # (Auto) 0.0 (0.0-0.1) K/uL Nucleated RBC % 0.0 0.0 /100WBC Nucleated RBCs # 0 0 K/uL APTT 34.2 H (18.6-31.3) SEC Sodium (136-148) mmol/L Potassium (3.5-5.1) mmol/L Chloride (98-107) mmol/L Carbon Dioxide (21.0-32.0) mmol/L BUN (7.0-18.0) mg/dL Creatinine (0.8-1.3) mg/dL Est Cr Clr Drug Dosing mL/min Estimated GFR (MDRD) ml/min Glucose (74-106) mg/dL Calcium (8.5-10.1) mg/dL Total Bilirubin (0.2-1.0) mg/dL AST (15-37) IU/L ALT (14-63) IU/L Alkaline Phosphatase (46-116) U/L Total Protein (6.4-8.2) g/dL Albumin (3.4-5.0) g/dL Globulin (2.6-4.0) g/dL Albumin/Globulin Ratio (0.9-1.6) 09/25/21 09/25/21 Range/Units 05:25 05:25 WBC 17.13 H (4.0-11.0) K/uL RBC 3.90 L (4.50-5.90) M/uL Hgb 11.8 L (13.0-17.0) g/dL Hct 35.3 L (38.0-50.0) % MCV 90.5 (80.0-98.0) fL MCH 30.3 (27.0-32.0) pg MCHC 33.4 (31.0-37.0) g/dL RDW Std Deviation 46.3 (28.0-62.0) fl RDW Coeff of Yaneli 14 (11.0-15.0) % Plt Count 184 (150-400) K/uL MPV 10.50 (7.40-12.00) fL Neut % (Auto) 82.0 H (48.0-80.0) % Lymph % (Auto) 8.6 L (16.0-40.0) % Glenn % (Auto) 8.6 (0.0-15.0) % Eos % (Auto) 0.7 (0.0-7.0) % Baso % (Auto) 0.1 (0.0-1.5) % Neut # (Auto) 14.0 H (1.4-5.7) K/uL Lymph # (Auto) 1.5 (0.6-2.4) K/uL Glenn # (Auto) 1.5 H (0.0-0.8) K/uL Eos # (Auto) 0.1 (0.0-0.7) K/uL Baso # (Auto) 0.0 (0.0-0.1) K/uL Nucleated RBC % 0.0 /100WBC Nucleated RBCs # 0 K/uL APTT (18.6-31.3) SEC Sodium 141 (136-148) mmol/L Potassium 3.7 (3.5-5.1) mmol/L Chloride 110 H (98-107) mmol/L Carbon Dioxide 19.8 L (21.0-32.0) mmol/L BUN 17 (7.0-18.0) mg/dL Creatinine 1.7 H (0.8-1.3) mg/dL Est Cr Clr Drug Dosing 41.91 mL/min Estimated GFR (MDRD) 40.7 ml/min Glucose 176 H (74-106) mg/dL Calcium 7.6 L (8.5-10.1) mg/dL Total Bilirubin 0.4 (0.2-1.0) mg/dL AST 9 L (15-37) IU/L ALT 13 L (14-63) IU/L Alkaline Phosphatase 69 (46-116) U/L Total Protein 5.1 L (6.4-8.2) g/dL Albumin 2.3 L (3.4-5.0) g/dL Globulin 2.8 (2.6-4.0) g/dL Albumin/Globulin Ratio 0.8 L (0.9-1.6) Jose Results Last 24 Hours: Microbiology 09/23/21 15:31 Aerobic Blood Culture - Preliminary Blood - Venous - Lab Draw NO GROWTH AFTER 1 DAY Anaerobic Blood Culture - Preliminary NO GROWTH AFTER 1 DAY 09/23/21 15:25 Aerobic Blood Culture - Preliminary Blood - Venous NO GROWTH AFTER 1 DAY Anaerobic Blood Culture - Final 09/24/21 06:35 C. difficile Antigen & Toxins A,B - Final Stool / Feces Med Orders - Current: Current Medications Acetaminophen (Acetaminophen 325 Mg Tab) 650 mg PO Q6H PRN PRN Reason: Fever Last Admin: 09/25/21 10:23 Dose: 650 mg Documented by: Norepinephrine Bitartrate (Norepinephr-0.9% Nacl 4 Mg/250) 4 mg in 250 mls @ 7.5 mls/hr IV TITRATE [facility]; Protocol Last Titration: 09/25/21 05:07 Dose: 2 mcg/min, 7.5 mls/hr Documented by: Piperacillin Sod/Tazobactam (Sod 3.375 gm/ Sodium Chloride) 100 mls @ 200 mls/hr IV Q6H [facility]EE Last Admin: 09/25/21 08:03 Dose: 200 mls/hr Documented by: Vancomycin HCl 1.5 gm/ Premix 300 mls @ 200 mls/hr IV Q24H [facility]EE Last Admin: 09/24/21 16:01 Dose: 200 mls/hr Documented by: Diltiazem HCl 100 mg/ Sodium (Chloride) 100 mls @ 5 mls/hr IV NOW VEE; Protocol Last Titration: 09/24/21 21:00 Dose: 0 mg/hr, 0 mls/hr Documented by: Amiodarone HCl/Dextrose (Nexterone In Dextrose 360 Mg/200 Ml) 360 mg in 200 mls @ 33.333 mls/hr IV ASDIRECTED [facility]EE; Protocol Last Infusion: 09/25/21 08:20 Dose: 0.5 mg/min, 16.667 mls/hr Documented by: Amiodarone HCl/Dextrose (Nexterone In Dextrose 360 Mg/200 Ml) 360 mg in 200 mls @ 16.667 mls/hr IV ASDIRECTED [facility]EE; Protocol Stop: 09/26/21 22:01 Pantoprazole Sodium 40 mg/ (Premix) 10 mls @ 300 mls/hr IV Q12H VEE Ondansetron HCl (Ondansetron 4 Mg/2 Ml Sdv) 4 mg IVPUSH Q6H PRN PRN Reason: Nausea/Vomiting Sodium Chloride (Sodium Chloride 0.65% Nasal [place] 45 Ml Bottle) 0 ml DUKE Q2H PRN PRN Reason: Dryness Vancomycin HCl (Pharmacy To Dose - Vancomycin) 1 dose .XX ASDIRECTED [facility] Discontinued Medications Digoxin (Digoxin 500 Mcg/2 Ml Amp) 250 mcg IVPUSH ONETIME ONE Stop: 09/24/21 20:35 Last Admin: 09/24/21 21:32 Dose: 250 mcg Documented by: Diltiazem HCl (Diltiazem 25 Mg/5 Ml Sdv) 20 mg IVPUSH ONETIME ONE Stop: 09/24/21 15:41 Last Admin: 09/24/21 15:50 Dose: 20 mg Documented by: Sodium Chloride (Normal Saline) 1,000 mls @ 999 mls/hr IV .Bolus ONE Stop: 09/23/21 15:38 Last Admin: 09/23/21 14:40 Dose: 999 mls/hr Documented by: Sodium Chloride (Normal Saline) 1,000 mls @ 125 mls/hr IV ASDIRECTED [facility] Last Admin: 09/24/21 21:43 Dose: 125 mls/hr Documented by: Heparin Sodium/Sodium Chloride (Heparin 25,000 Units In 1/2 Ns 500 Ml) 500 mls @ 21.84 mls/hr IV TITRATE VEE; Protocol Sodium Chloride (Normal Saline) 500 mls @ 999 mls/hr IV .BOLUS ONE Stop: 09/24/21 19:53 Last Admin: 09/24/21 20:35 Dose: 999 mls/hr Documented by: Amiodarone HCl/Dextrose 150 mg (/ Premix) 100 mls @ 400 mls/hr IV NOW ONE; Protocol Stop: 09/24/21 20:48 Last Admin: 09/24/21 21:33 Dose: 400 mls/hr Documented by: Pantoprazole Sodium (Pantoprazole 40 Mg/10 Ml Syringe) 40 mg IVPUSH Q12HR [facility] Last Admin: 09/23/21 21:18 Dose: Not Given Documented by: Pantoprazole Sodium (Pantoprazole 40 Mg/10 Ml Syringe) 40 mg IVPUSH Q12HR [facility] Last Admin: 09/25/21 08:03 Dose: 40 mg Documented by: Potassium Chloride (Potassium Chloride 10% 20 Meq/15 Ml Soln 30 Ml Ud Cup) 40 meq PO ONETIME ONE Stop: 09/24/21 11:32 Last Admin: 09/24/21 12:02 Dose: 40 meq Documented by: - Exam Central Line Total Time: 1Days 16Hours General: Alert, Oriented Neck: Supple Lungs: Clear to Auscultation, Normal Respiratory Effort Cardiovascular: Regular Rate, Regular Rhythm GI/Abdominal Exam: Soft, Non-Tender, No Distention Extremities: Non-Tender, No Pedal Edema Skin: Warm, Dry, Intact Neurological: No New Focal Deficit - Patient Data Lab Results Last 24 hrs: Laboratory Results - last 24 hr 09/24/21 09/24/21 09/24/21 Range/Units 14:05 16:16 22:19 WBC 13.93 H 20.95 H (4.0-11.0) K/uL RBC 3.87 L 4.01 L (4.50-5.90) M/uL Hgb 11.8 L 12.3 L (13.0-17.0) g/dL Hct 34.7 L 36.1 L (38.0-50.0) % MCV 89.7 90.0 (80.0-98.0) fL MCH 30.5 30.7 (27.0-32.0) pg MCHC 34.0 34.1 (31.0-37.0) g/dL RDW Std Deviation 45.2 46.2 (28.0-62.0) fl RDW Coeff of Yaneli 14 14 (11.0-15.0) % Plt Count 168 187 (150-400) K/uL MPV 10.40 10.20 (7.40-12.00) fL Neut % (Auto) 82.4 H (48.0-80.0) % Lymph % (Auto) 6.8 L (16.0-40.0) % Glenn % (Auto) 10.6 (0.0-15.0) % Eos % (Auto) 0.2 (0.0-7.0) % Baso % (Auto) 0.0 (0.0-1.5) % Neut # (Auto) 17.3 H (1.4-5.7) K/uL Lymph # (Auto) 1.4 (0.6-2.4) K/uL Glenn # (Auto) 2.2 H (0.0-0.8) K/uL Eos # (Auto) 0.0 (0.0-0.7) K/uL Baso # (Auto) 0.0 (0.0-0.1) K/uL Nucleated RBC % 0.0 0.0 /100WBC Nucleated RBCs # 0 0 K/uL APTT 34.2 H (18.6-31.3) SEC Sodium (136-148) mmol/L Potassium (3.5-5.1) mmol/L Chloride (98-107) mmol/L Carbon Dioxide (21.0-32.0) mmol/L BUN (7.0-18.0) mg/dL Creatinine (0.8-1.3) mg/dL Est Cr Clr Drug Dosing mL/min Estimated GFR (MDRD) ml/min Glucose (74-106) mg/dL Calcium (8.5-10.1) mg/dL Total Bilirubin (0.2-1.0) mg/dL AST (15-37) IU/L ALT (14-63) IU/L Alkaline Phosphatase (46-116) U/L Total Protein (6.4-8.2) g/dL Albumin (3.4-5.0) g/dL Globulin (2.6-4.0) g/dL Albumin/Globulin Ratio (0.9-1.6) 09/25/21 09/25/21 Range/Units 05:25 05:25 WBC 17.13 H (4.0-11.0) K/uL RBC 3.90 L (4.50-5.90) M/uL Hgb 11.8 L (13.0-17.0) g/dL Hct 35.3 L (38.0-50.0) % MCV 90.5 (80.0-98.0) fL MCH 30.3 (27.0-32.0) pg MCHC 33.4 (31.0-37.0) g/dL RDW Std Deviation 46.3 (28.0-62.0) fl RDW Coeff of Yaneli 14 (11.0-15.0) % Plt Count 184 (150-400) K/uL MPV 10.50 (7.40-12.00) fL Neut % (Auto) 82.0 H (48.0-80.0) % Lymph % (Auto) 8.6 L (16.0-40.0) % Glenn % (Auto) 8.6 (0.0-15.0) % Eos % (Auto) 0.7 (0.0-7.0) % Baso % (Auto) 0.1 (0.0-1.5) % Neut # (Auto) 14.0 H (1.4-5.7) K/uL Lymph # (Auto) 1.5 (0.6-2.4) K/uL Glenn # (Auto) 1.5 H (0.0-0.8) K/uL Eos # (Auto) 0.1 (0.0-0.7) K/uL Baso # (Auto) 0.0 (0.0-0.1) K/uL Nucleated RBC % 0.0 /100WBC Nucleated RBCs # 0 K/uL APTT (18.6-31.3) SEC Sodium 141 (136-148) mmol/L Potassium 3.7 (3.5-5.1) mmol/L Chloride 110 H (98-107) mmol/L Carbon Dioxide 19.8 L (21.0-32.0) mmol/L BUN 17 (7.0-18.0) mg/dL Creatinine 1.7 H (0.8-1.3) mg/dL Est Cr Clr Drug Dosing 41.91 mL/min Estimated GFR (MDRD) 40.7 ml/min Glucose 176 H (74-106) mg/dL Calcium 7.6 L (8.5-10.1) mg/dL Total Bilirubin 0.4 (0.2-1.0) mg/dL AST 9 L (15-37) IU/L ALT 13 L (14-63) IU/L Alkaline Phosphatase 69 (46-116) U/L Total Protein 5.1 L (6.4-8.2) g/dL Albumin 2.3 L (3.4-5.0) g/dL Globulin 2.8 (2.6-4.0) g/dL Albumin/Globulin Ratio 0.8 L (0.9-1.6) Result Diagrams: 09/25/21 05:25 09/25/21 05:25 Jose Results Last 24 hrs: Microbiology 09/23/21 15:31 Aerobic Blood Culture - Preliminary Blood - Venous - Lab Draw NO GROWTH AFTER 1 DAY Anaerobic Blood Culture - Preliminary NO GROWTH AFTER 1 DAY 09/23/21 15:25 Aerobic Blood Culture - Preliminary Blood - Venous NO GROWTH AFTER 1 DAY Anaerobic Blood Culture - Final 09/24/21 06:35 C. difficile Antigen & Toxins A,B - Final Stool / Feces Sepsis Event Note - Evaluation Sepsis Screening Result: Severe Sepsis Risk - Focused Exam Vital Signs: Vital Signs Temp Temp Pulse Resp BP Pulse Ox 09/25/21 10:00 79 19 128/59 L 95 09/25/21 08:57 76 24 H 123/59 L 93 L 09/25/21 08:00 37.1 C 95 22 H 132/66 94 L 09/25/21 07:00 102 H 23 H 117/59 L 95 09/25/21 06:00 86 22 H 112/55 L 95 09/25/21 05:00 98 24 H 124/60 95 09/25/21 04:45 37.1 C 09/25/21 04:15 37.8 C 09/25/21 04:00 101 H 22 H 115/55 L 94 L 09/25/21 03:00 91 19 113/53 L 91 L 09/25/21 02:00 104 H 26 H 118/61 93 L 09/25/21 01:00 102 H 18 122/56 L 95 09/25/21 00:00 38.2 C H 112 H 19 128/59 L 93 L 09/24/21 23:00 126 H 23 H 112/52 L 94 L 09/24/21 22:30 38.2 C H 38.2 C H - Problem List & Annotations (1) NIKI (acute kidney injury) SNOMED Code(s): 66367523, 16438967 Code(s): N17.9 - ACUTE KIDNEY FAILURE, UNSPECIFIED Status: Acute Current Visit: Yes (2) Proctitis SNOMED Code(s): 7362723 Code(s): K62.89 - OTHER SPECIFIED DISEASES OF ANUS AND RECTUM Status: Acute Current Visit: Yes (3) Septic shock SNOMED Code(s): 79497849 Code(s): A41.9 - SEPSIS, UNSPECIFIED ORGANISM; R65.21 - SEVERE SEPSIS WITH S EPTIC SHOCK Status: Acute Current Visit: Yes - Problem List Review Problem List Initiated/Reviewed/Updated: Yes - My Orders Last 24 Hours: My Active Orders 09/24/21 Lunch Clear Liquid Diet [DIET] 09/24/21 17:55 Isolation [COMM] Routine 09/24/21 20:45 Amiodarone In Dextrose,Iso-Osm [Nexterone in Dextrose 360 MG/200 ML] 360 mg in 200 ml IV ASDIRECTED 09/25/21 04:00 Amiodarone In Dextrose,Iso-Osm [Nexterone in Dextrose 360 MG/200 ML] 360 mg in 200 ml IV ASDIRECTED 09/25/21 21:00 Pantoprazole [ProTONIX] 40 mg Premix Bag 1 bag IV Q12H 09/26/21 05:11 CBC WITH AUTO DIFF [HEME] AM COMPREHENSIVE METABOLIC PN,CMP [CHEM] AM 09/26/21 16:00 VANCOMYCIN TROUGH [CHEM] Routine 09/27/21 05:11 CBC WITH AUTO DIFF [HEME] AM COMPREHENSIVE METABOLIC PN,CMP [CHEM] AM 09/28/21 05:11 CBC WITH AUTO DIFF [HEME] AM COMPREHENSIVE METABOLIC PN,CMP [CHEM] AM - Plan Plan:: 65 yo male admitted for septic shock with likely source being colon and GI bleed Septic shock: was placed back on levophed, but will continue to wean Proctitis: continue vancomycin and Zosyn, cultures pending, Dr. Aparicio consulted GI bleed: on protonix, Hgb stable A.fib with RVR: due to low blood pressures have started amiodarone drip, HR sta ble.
--- NOTE | 2021-09-25 11:12 | PCM.CONSN ---
- General Info Date of Service: 09/25/21 Subjective Update: Patient complains that eating food gives him diarrhea. Drank apple juice yesterday and had a stomach ache afterwards. Feels bloated. - Review of Systems General: Reports: Fatigue, Malaise HEENT: Reports: No Symptoms Pulmonary: Reports: No Symptoms Cardiovascular: Reports: No Symptoms Gastrointestinal: Reports: Abdominal Pain, Diarrhea Genitourinary: Reports: Other (eisenberg in place) Musculoskeletal: Reports: No Symptoms Skin: Reports: No Symptoms - Patient Data Vitals - Most Recent: Last Vital Signs Temp 37.1 C 09/25/21 08:00 Pulse 79 09/25/21 10:00 Resp 19 09/25/21 10:00 BP 128/59 L 09/25/21 10:00 Pulse Ox 95 09/25/21 10:00 Weight - Most Recent: 100.7 kg I&O - Last 24 Hours: Intake & Output 09/24/21 09/25/21 09/25/21 22:59 06:59 14:59 Intake Total 3131 3050 1000 Output Total 900 475 Balance 2231 2575 1000 Lab Results Last 24 Hours: Laboratory Results - last 24 hr 09/24/21 09/24/21 09/24/21 Range/Units 14:05 16:16 22:19 WBC 13.93 H 20.95 H (4.0-11.0) K/uL RBC 3.87 L 4.01 L (4.50-5.90) M/uL Hgb 11.8 L 12.3 L (13.0-17.0) g/dL Hct 34.7 L 36.1 L (38.0-50.0) % MCV 89.7 90.0 (80.0-98.0) fL MCH 30.5 30.7 (27.0-32.0) pg MCHC 34.0 34.1 (31.0-37.0) g/dL RDW Std Deviation 45.2 46.2 (28.0-62.0) fl RDW Coeff of Yaneli 14 14 (11.0-15.0) % Plt Count 168 187 (150-400) K/uL MPV 10.40 10.20 (7.40-12.00) fL Neut % (Auto) 82.4 H (48.0-80.0) % Lymph % (Auto) 6.8 L (16.0-40.0) % [place] % (Auto) 10.6 (0.0-15.0) % Eos % (Auto) 0.2 (0.0-7.0) % Baso % (Auto) 0.0 (0.0-1.5) % Neut # (Auto) 17.3 H (1.4-5.7) K/uL Lymph # (Auto) 1.4 (0.6-2.4) K/uL [place] # (Auto) 2.2 H (0.0-0.8) K/uL Eos # (Auto) 0.0 (0.0-0.7) K/uL Baso # (Auto) 0.0 (0.0-0.1) K/uL Nucleated RBC % 0.0 0.0 /100WBC Nucleated RBCs # 0 0 K/uL APTT 34.2 H (18.6-31.3) SEC Sodium (136-148) mmol/L Potassium (3.5-5.1) mmol/L Chloride (98-107) mmol/L Carbon Dioxide (21.0-32.0) mmol/L BUN (7.0-18.0) mg/dL Creatinine (0.8-1.3) mg/dL Est Cr Clr Drug Dosing mL/min Estimated GFR (MDRD) ml/min Glucose (74-106) mg/dL Calcium (8.5-10.1) mg/dL Total Bilirubin (0.2-1.0) mg/dL AST (15-37) IU/L ALT (14-63) IU/L Alkaline Phosphatase (46-116) U/L Total Protein (6.4-8.2) g/dL Albumin (3.4-5.0) g/dL Globulin (2.6-4.0) g/dL Albumin/Globulin Ratio (0.9-1.6) 09/25/21 09/25/21 Range/Units 05:25 05:25 WBC 17.13 H (4.0-11.0) K/uL RBC 3.90 L (4.50-5.90) M/uL Hgb 11.8 L (13.0-17.0) g/dL Hct 35.3 L (38.0-50.0) % MCV 90.5 (80.0-98.0) fL MCH 30.3 (27.0-32.0) pg MCHC 33.4 (31.0-37.0) g/dL RDW Std Deviation 46.3 (28.0-62.0) fl RDW Coeff of Yaneli 14 (11.0-15.0) % Plt Count 184 (150-400) K/uL MPV 10.50 (7.40-12.00) fL Neut % (Auto) 82.0 H (48.0-80.0) % Lymph % (Auto) 8.6 L (16.0-40.0) % [place] % (Auto) 8.6 (0.0-15.0) % Eos % (Auto) 0.7 (0.0-7.0) % Baso % (Auto) 0.1 (0.0-1.5) % Neut # (Auto) 14.0 H (1.4-5.7) K/uL Lymph # (Auto) 1.5 (0.6-2.4) K/uL [place] # (Auto) 1.5 H (0.0-0.8) K/uL Eos # (Auto) 0.1 (0.0-0.7) K/uL Baso # (Auto) 0.0 (0.0-0.1) K/uL Nucleated RBC % 0.0 /100WBC Nucleated RBCs # 0 K/uL APTT (18.6-31.3) SEC Sodium 141 (136-148) mmol/L Potassium 3.7 (3.5-5.1) mmol/L Chloride 110 H (98-107) mmol/L Carbon Dioxide 19.8 L (21.0-32.0) mmol/L BUN 17 (7.0-18.0) mg/dL Creatinine 1.7 H (0.8-1.3) mg/dL Est Cr Clr Drug Dosing 41.91 mL/min Estimated GFR (MDRD) 40.7 ml/min Glucose 176 H (74-106) mg/dL Calcium 7.6 L (8.5-10.1) mg/dL Total Bilirubin 0.4 (0.2-1.0) mg/dL AST 9 L (15-37) IU/L ALT 13 L (14-63) IU/L Alkaline Phosphatase 69 (46-116) U/L Total Protein 5.1 L (6.4-8.2) g/dL Albumin 2.3 L (3.4-5.0) g/dL Globulin 2.8 (2.6-4.0) g/dL Albumin/Globulin Ratio 0.8 L (0.9-1.6) Jose Results Last 24 Hours: Microbiology 09/23/21 15:31 Aerobic Blood Culture - Preliminary Blood - Venous - Lab Draw NO GROWTH AFTER 1 DAY Anaerobic Blood Culture - Preliminary NO GROWTH AFTER 1 DAY 09/23/21 15:25 Aerobic Blood Culture - Preliminary Blood - Venous NO GROWTH AFTER 1 DAY Anaerobic Blood Culture - Final 09/24/21 06:35 C. difficile Antigen & Toxins A,B - Final Stool / Feces Med Orders - Current: Current Medications Acetaminophen (Acetaminophen 325 Mg Tab) 650 mg PO Q6H PRN PRN Reason: Fever Last Admin: 09/25/21 10:23 Dose: 650 mg Documented by: Norepinephrine Bitartrate (Norepinephr-0.9% Nacl 4 Mg/250) 4 mg in 250 mls @ 7.5 mls/hr IV TITRATE [facility]; Protocol Last Titration: 09/25/21 10:47 Dose: 1 mcg/min, 3.75 mls/hr Documented by: Piperacillin Sod/Tazobactam (Sod 3.375 gm/ Sodium Chloride) 100 mls @ 200 mls/hr IV Q6H [facility] Last Admin: 09/25/21 08:03 Dose: 200 mls/hr Documented by: Vancomycin HCl 1.5 gm/ Premix 300 mls @ 200 mls/hr IV Q24H [facility]EE Last Admin: 09/24/21 16:01 Dose: 200 mls/hr Documented by: Diltiazem HCl 100 mg/ Sodium (Chloride) 100 mls @ 5 mls/hr IV NOW [facility]; Protocol Last Titration: 09/24/21 21:00 Dose: 0 mg/hr, 0 mls/hr Documented by: Amiodarone HCl/Dextrose (Nexterone In Dextrose 360 Mg/200 Ml) 360 mg in 200 mls @ 33.333 mls/hr IV ASDIRECTED [facility]; Protocol Last Infusion: 09/25/21 08:20 Dose: 0.5 mg/min, 16.667 mls/hr Documented by: Amiodarone HCl/Dextrose (Nexterone In Dextrose 360 Mg/200 Ml) 360 mg in 200 mls @ 16.667 mls/hr IV ASDIRECTED [facility]; Protocol Stop: 09/26/21 22:01 Pantoprazole Sodium 40 mg/ (Premix) 10 mls @ 300 mls/hr IV Q12H VEE Ondansetron HCl (Ondansetron 4 Mg/2 Ml Sdv) 4 mg IVPUSH Q6H PRN PRN Reason: Nausea/Vomiting Sodium Chloride (Sodium Chloride 0.65% Nasal [place] 45 Ml Bottle) 0 ml DUKE Q2H PRN PRN Reason: Dryness Vancomycin HCl (Pharmacy To Dose - Vancomycin) 1 dose .XX ASDIRECTED VEE Discontinued Medications Digoxin (Digoxin 500 Mcg/2 Ml Amp) 250 mcg IVPUSH ONETIME ONE Stop: 09/24/21 20:35 Last Admin: 09/24/21 21:32 Dose: 250 mcg Documented by: Diltiazem HCl (Diltiazem 25 Mg/5 Ml Sdv) 20 mg IVPUSH ONETIME ONE Stop: 09/24/21 15:41 Last Admin: 09/24/21 15:50 Dose: 20 mg Documented by: Sodium Chloride (Normal Saline) 1,000 mls @ 999 mls/hr IV .Bolus ONE Stop: 09/23/21 15:38 Last Admin: 09/23/21 14:40 Dose: 999 mls/hr Documented by: Sodium Chloride (Normal Saline) 1,000 mls @ 125 mls/hr IV ASDIRECTED [facility] Last Admin: 09/24/21 21:43 Dose: 125 mls/hr Documented by: Heparin Sodium/Sodium Chloride (Heparin 25,000 Units In 1/2 Ns 500 Ml) 500 mls @ 21.84 mls/hr IV TITRATE VEE; Protocol Sodium Chloride (Normal Saline) 500 mls @ 999 mls/hr IV .BOLUS ONE Stop: 09/24/21 19:53 Last Admin: 09/24/21 20:35 Dose: 999 mls/hr Documented by: Amiodarone HCl/Dextrose 150 mg (/ Premix) 100 mls @ 400 mls/hr IV NOW ONE; Protocol Stop: 09/24/21 20:48 Last Admin: 09/24/21 21:33 Dose: 400 mls/hr Documented by: Pantoprazole Sodium (Pantoprazole 40 Mg/10 Ml Syringe) 40 mg IVPUSH Q12HR VEE Last Admin: 09/23/21 21:18 Dose: Not Given Documented by: Pantoprazole Sodium (Pantoprazole 40 Mg/10 Ml Syringe) 40 mg IVPUSH Q12HR VEE Last Admin: 09/25/21 08:03 Dose: 40 mg Documented by: Potassium Chloride (Potassium Chloride 10% 20 Meq/15 Ml Soln 30 Ml Ud Cup) 40 meq PO ONETIME ONE Stop: 09/24/21 11:32 Last Admin: 09/24/21 12:02 Dose: 40 meq Documented by: - Exam Quality Assessment: Supplemental Oxygen Central Line Total Time: 1Days 16Hours General: Alert, Oriented HEENT: Pupils Equal, Pupils Reactive Neck: Supple Lungs: Normal Respiratory Effort GI/Abdominal Exam: Soft, Non-Tender, Distended. No: Guarding, Rigid, Rebound, Tender Extremities: Normal Inspection Sepsis Event Note - Evaluation Sepsis Screening Result: Severe Sepsis Risk - Focused Exam Vital Signs: Vital Signs Temp Temp Pulse Resp BP Pulse Ox 09/25/21 10:00 79 19 128/59 L 95 09/25/21 08:57 76 24 H 123/59 L 93 L 09/25/21 08:00 37.1 C 95 22 H 132/66 94 L 09/25/21 07:00 102 H 23 H 117/59 L 95 09/25/21 06:00 86 22 H 112/55 L 95 09/25/21 05:00 98 24 H 124/60 95 09/25/21 04:45 37.1 C 09/25/21 04:15 37.8 C 09/25/21 04:00 101 H 22 H 115/55 L 94 L 09/25/21 03:00 91 19 113/53 L 91 L 09/25/21 02:00 104 H 26 H 118/61 93 L 09/25/21 01:00 102 H 18 122/56 L 95 09/25/21 00:00 38.2 C H 112 H 19 128/59 L 93 L Consult PN Assessment/Plan (1) Septic shock SNOMED Code(s): 20073990 Code(s): A41.9 - SEPSIS, UNSPECIFIED ORGANISM; R65.21 - SEVERE SEPSIS WITH SEPTIC SHOCK Current Visit: Yes (2) Proctitis SNOMED Code(s): 7275302 Code(s): K62.89 - OTHER SPECIFIED DISEASES OF ANUS AND RECTUM Current Visit: Yes (3) NIKI (acute kidney injury) SNOMED Code(s): 94716733, 98784401 Code(s): N17.9 - ACUTE KIDNEY FAILURE, UNSPECIFIED Current Visit: Yes Problem List Initiated/Reviewed/Updated: Yes Plan: The patient is on pressors again this am. BUN/Cr improved. Hemoglobin stable. Stool has no signs of melena or hematochezia. Will continue to follow along. Favor an infectious source from his colon as cause of sepsis and previous bloody stool. Will discuss possible sigmoidoscopy once patient stabilizes. May just have him do this as an outpatient. If patient becomes more septic could repeat abdominal CT scan.
--- NOTE | 2021-09-25 15:31 | PN ---
THC Physician - Brief Progress [id number]/21/2021 15:21[facility] Erin Cheema, MIESHA - AMANDA (HUSSEIN) - [facility] TOMpatrick of Service 09/25/2021 15:21HPI/Events of Note eICU Progress NotePt is a 65 yo M admitted on 09/23 for septic shock secondary to proctitis wit h a LGIB. Yesterday, he went into A fib with RVR and was started on a Cardizem gtt. Overnight, he req uired Levophed again and was transitioned to Amio. Today, he is rate controlled at 86 and back in NSR . The Heparin gtt was held secondary to his GIB and with his risk of bleeding and NSR, the beside tea m would like to continue holding on anticoagulation. HIs hgb is still 11.8, he is again off Levo, and he appears to be resting comfortably in bed in NAD with stable VS. Once his Amio load is complete, w e will initiate the po daily dose of 200 mg starting tomorrow. Case was discussed with his nurse Armando durand. eICU Recommendations:1) Continue Amio gtt per protocol2) Begin po Amio tomorrow3) Hold on antic oagulation with NSR and GIB4) May benefit from Cardio follow up as an outpatient5) 2D Echo for full w ork up if desired by the bedside team6) Continue antibiotics for Proctitis7) PPI BID for GIBThank you for allowing us to participate in the care of your patient.Interventions Major-Infection - evaluatio n and managementIntermediate-Arrhythmia - evaluation and management, Best-practice therapies (e.g. VT E, beta beulah, etc.), Bleeding - evaluation and treatment with blood products, Communication with o ther healthcare providers and/or family, Hypotension - evaluation and management, Medication change / dose adjustment
[2021-09-25] MEDS: VANCOmycin 1.5 GM/300 ML 1.5 GM in Premix Bag 1 BAG IV SCH (16:36)
[2021-09-25] MEDS: PANTOPRAZOLE IV SCH (20:47)
[2021-09-26] MEDS: Piperacillin/Tazobactam 3.375 GM in Sodium Chloride 0.9% 100 ML IV SCH ×4 (03:37→20:39)
[2021-09-26 06:14] LABS: CARBON DIOXIDE,CO2 19.6 mmol/L (21.0-32.0); POTASSIUM,K 3.3 mmol/L (3.5-5.1)
[2021-09-26] MEDS ORDERED: Albuterol/Ipratropium 3.0-0.5 MG/3 ML Neb Soln NEB ONE (07:28)
--- NOTE | 2021-09-26 07:36 | PN ---
THC Physician - Brief Progress [id number]/22/2021 07:33[facility] Erin matthew [place] - AMANDA (HUSSEIN) - Edil PALOMINO of Service 09/26/2021 07:33HPI/Events of Note complains:coughon camera noted to have snoring and apneas with coughplan:attempt duoneb 3 ml on ceneeds polysomnographycan attempt lateral positionInterventions Minor-Other: coughElectronically Sig shawnee by: Monica ENGL[place]) on 09/26/2021 07:36
[2021-09-26] MEDS: Amiodarone 200 MG Tab PO SCH (08:00)
[2021-09-26] MEDS: Acetaminophen 325 MG Tab PO PRN ×2 (08:00→18:23)
[2021-09-26] MEDS: PANTOPRAZOLE IV SCH (08:03)
[2021-09-26] MEDS ORDERED: Magnesium Sulfate/Water 2 GM/50 ML Premix Bag IV ONE (09:08)
[2021-09-26] MEDS ORDERED: Potassium Chloride 20 MEQ Tab.ER PO ONE (09:08)
--- NOTE | 2021-09-26 09:08 | PCM.SN.2 ---
- Free Text/Narrative Note: Patient is a 65 year old male who was admitted with septic shock. He had diarrhea and reported bloody stool. He was on pressors on and off through the weekend. He was on amiodarone as well. His outpatient CT showed thickening and inflammation of the rectum. On initial exam I performed a RICKY and did not palpate a digital mass. There was a copious amount of brown appearing stool. His hemoglobin has stayed stable throughout his stay. This morning the diarrhea has slowed down. He had some more formed stools last night according to his nurse. This morning he is passing mucous. His abdomen is still slightly distended but it is soft and nontender. He appears weak and is coughing and currently using a nebulizer. His WBC is now normal. I feel that the patient likely had an infectious source of his rectal inflammation which led to the bloody stools. I feel he should recover more fully before undergoing an invasive procedure like a colonoscopy. He should undergo a colonoscopy but can do this/follow up with his regular GI doctor as an outpatient in [place]. Will sign off at this time. Call with questions.
[2021-09-26] MEDS ORDERED: Magnesium Sulfate/Water 2 GM in Premix Bag 1 BAG IV ONE (09:45)
--- NOTE | 2021-09-26 11:45 | CR ---
INDICATION: Dyspnea. Rhonchi. TECHNIQUE: AP portable view of the chest. COMPARISON: 09/23/2021. FINDINGS: Right IJ CVC is stable. Stable upper limits of normal heart size. There is mild pulmonary vascular congestion with diffuse interstitial prominence, which has slightly progressed. No pleural fluid is seen on this single view study. No pneumothorax. IMPRESSION: Mild pulmonary vascular congestion with diffuse interstitial changes, which suggests mild interstitial edema. Clinically correlate. Dictated by Luis Antonio William MD @ 09/26/2021 11:42:47 AM Dictated by: Luis Antonio William MD @ 09/26/2021 11:42:53 (Electronically Signed)
[2021-09-26] MEDS: Albuterol/Ipratropium 3.0-0.5 MG/3 ML Neb Soln NEB PRN ×2 (12:29→20:39)
--- NOTE | 2021-09-26 15:43 | PN ---
THC Physician - Brief Progress [id number]/22/2021 15:40[facility] Erin Cheema, MIESHA - AMANDA (HUSSEIN) - AMANDA DAVIDEdil HUTSON of Service 09/26/2021 15:40HPI/Events of Note eICU progress note:Patient is a 65-year-old male admitted on 09/23 for septic shock secondary t o proctitis, lower GI bleeding. On 09/24, patient developed A. fib with RVR requiring Cardizem infus ion. Overnight, he developed worsening hypotension requiring Levophed and was later transitioned to amiodarone infusion. Today, he has been transitioned to oral amiodarone with stable hemodynamics. Dayan chakraborty is tolerating clear liquid diet. He has no further GI bleeding, hemoglobin stable. Discussed with bedside nursing.Video examination performed. Resting comfortably in bed with at bedside. Inga l signs stable.Recommendations:-Continue oral amiodarone-Continue antibiotics for proctitis-Anticoagu lation on hold for recent GI bleeding, continue Protonix-Consider bedside echocardiogram, outpatient cardiology evaluationThank you for involving us in the care of this patient.Interventions Major-Hemor rhage - evaluation and management, Infection - evaluation and management, Shock - evaluation and luis gement
[2021-09-26] MEDS: VANCOmycin 1.5 GM/300 ML 1.5 GM in Premix Bag 1 BAG IV SCH (16:04)
--- NOTE | 2021-09-26 19:24 | PCM.PN ---
- General Info Date of Service: 09/26/21 - Review of Systems Systems Review Comment:: reports fatigue, no bloody stools - Patient Data Vitals - Most Recent: Last Vital Signs Temp 37.3 C 09/26/21 12:00 Pulse 83 09/25/21 18:58 Resp 22 H 09/26/21 18:00 BP 141/69 H 09/26/21 18:00 Pulse Ox 94 L 09/26/21 18:00 Weight - Most Recent: 101.2 kg I&O - Last 24 Hours: Intake & Output 09/26/21 09/26/21 09/26/21 06:59 14:59 22:59 Intake Total 1100 1460 Output Total 600 700 Balance 500 760 Lab Results Last 24 Hours: Laboratory Results - last 24 hr 09/26/21 09/26/21 09/26/21 Range/Units 04:55 04:55 04:55 WBC 10.54 (4.0-11.0) K/uL RBC 3.86 L (4.50-5.90) M/uL Hgb 11.6 L (13.0-17.0) g/dL Hct 34.4 L (38.0-50.0) % MCV 89.1 (80.0-98.0) fL MCH 30.1 (27.0-32.0) pg MCHC 33.7 (31.0-37.0) g/dL RDW Std Deviation 46.2 (28.0-62.0) fl RDW Coeff of Yaneli 14 (11.0-15.0) % Plt Count 182 (150-400) K/uL MPV 10.70 (7.40-12.00) fL Neut % (Auto) 84.0 H (48.0-80.0) % Lymph % (Auto) 6.0 L (16.0-40.0) % Wood % (Auto) 7.6 (0.0-15.0) % Eos % (Auto) 2.3 (0.0-7.0) % Baso % (Auto) 0.1 (0.0-1.5) % Neut # (Auto) 8.9 H (1.4-5.7) K/uL Lymph # (Auto) 0.6 (0.6-2.4) K/uL Wood # (Auto) 0.8 (0.0-0.8) K/uL Eos # (Auto) 0.2 (0.0-0.7) K/uL Baso # (Auto) 0.0 (0.0-0.1) K/uL Nucleated RBC % 0.0 /100WBC Nucleated RBCs # 0 K/uL APTT 33.4 H (18.6-31.3) SEC Sodium 142 (136-148) mmol/L Potassium 3.3 L (3.5-5.1) mmol/L Chloride 108 H (98-107) mmol/L Carbon Dioxide 19.6 L (21.0-32.0) mmol/L BUN 14 (7.0-18.0) mg/dL Creatinine 1.4 H (0.8-1.3) mg/dL Est Cr Clr Drug Dosing 50.89 mL/min Estimated GFR (MDRD) 50.9 ml/min Glucose 91 (74-106) mg/dL Calcium 8.2 L (8.5-10.1) mg/dL Magnesium (1.8-2.4) mg/dL Total Bilirubin 0.4 (0.2-1.0) mg/dL AST 16 (15-37) IU/L ALT 15 (14-63) IU/L Alkaline Phosphatase 63 (46-116) U/L Total Protein 5.8 L (6.4-8.2) g/dL Albumin 2.3 L (3.4-5.0) g/dL Globulin 3.5 (2.6-4.0) g/dL Albumin/Globulin Ratio 0.7 L (0.9-1.6) Vancomycin Trough (5.0-10.0) ug/mL 09/26/21 09/26/21 Range/Units 04:55 16:09 WBC (4.0-11.0) K/uL RBC (4.50-5.90) M/uL Hgb (13.0-17.0) g/dL Hct (38.0-50.0) % MCV (80.0-98.0) fL MCH (27.0-32.0) pg MCHC (31.0-37.0) g/dL RDW Std Deviation (28.0-62.0) fl RDW Coeff of Yaneli (11.0-15.0) % Plt Count (150-400) K/uL MPV (7.40-12.00) fL Neut % (Auto) (48.0-80.0) % Lymph % (Auto) (16.0-40.0) % Wood % (Auto) (0.0-15.0) % Eos % (Auto) (0.0-7.0) % Baso % (Auto) (0.0-1.5) % Neut # (Auto) (1.4-5.7) K/uL Lymph # (Auto) (0.6-2.4) K/uL Wood # (Auto) (0.0-0.8) K/uL Eos # (Auto) (0.0-0.7) K/uL Baso # (Auto) (0.0-0.1) K/uL Nucleated RBC % /100WBC Nucleated RBCs # K/uL APTT (18.6-31.3) SEC Sodium (136-148) mmol/L Potassium (3.5-5.1) mmol/L Chloride (98-107) mmol/L Carbon Dioxide (21.0-32.0) mmol/L BUN (7.0-18.0) mg/dL Creatinine (0.8-1.3) mg/dL Est Cr Clr Drug Dosing mL/min Estimated GFR (MDRD) ml/min Glucose (74-106) mg/dL Calcium (8.5-10.1) mg/dL Magnesium 1.4 L (1.8-2.4) mg/dL Total Bilirubin (0.2-1.0) mg/dL AST (15-37) IU/L ALT (14-63) IU/L Alkaline Phosphatase (46-116) U/L Total Protein (6.4-8.2) g/dL Albumin (3.4-5.0) g/dL Globulin (2.6-4.0) g/dL Albumin/Globulin Ratio (0.9-1.6) Vancomycin Trough 12.0 H (5.0-10.0) ug/mL Jose Results Last 24 Hours: Microbiology 09/23/21 15:31 Aerobic Blood Culture - Preliminary Blood - Venous - Lab Draw NO GROWTH AFTER 3 DAYS Anaerobic Blood Culture - Preliminary NO GROWTH AFTER 3 DAYS 09/23/21 15:25 Aerobic Blood Culture - Preliminary Blood - Venous NO GROWTH AFTER 3 DAYS Anaerobic Blood Culture - Final 09/24/21 06:35 Stool Culture - Preliminary Stool / Feces Shiga Toxin I & II - Final Med Orders - Current: Current Medications Acetaminophen (Acetaminophen 325 Mg Tab) 650 mg PO Q6H PRN PRN Reason: Fever Last Admin: 09/26/21 18:23 Dose: 650 mg Documented by: Albuterol/Ipratropium (Albuterol/Ipratropium 3.0-0.5 Mg/3 Ml Neb Soln) 3 ml NEB Q4H PRN PRN Reason: Cough Last Admin: 09/26/21 12:29 Dose: 3 ml Documented by: Amiodarone HCl (Amiodarone 200 Mg Tab) 200 mg PO DAILY [facility] Last Admin: 09/26/21 08:00 Dose: 200 mg Documented by: Norepinephrine Bitartrate (Norepinephr-0.9% Nacl 4 Mg/250) 4 mg in 250 mls @ 7. 5 mls/hr IV TITRATE VEE; Protocol Last Titration: 09/25/21 13:10 Dose: 0 mcg/min, 0 mls/hr Documented by: Piperacillin Sod/Tazobactam (Sod 3.375 gm/ Sodium Chloride) 100 mls @ 200 mls/hr IV Q6H [facility] Last Admin: 09/26/21 16:04 Dose: 200 mls/hr Documented by: Vancomycin HCl 1.5 gm/ Premix 300 mls @ 200 mls/hr IV Q24H VEE Stop: 09/26/21 19:30 Last Admin: 09/26/21 16:04 Dose: 200 mls/hr Documented by: Vancomycin HCl 1.5 gm/ Premix 300 mls @ 200 mls/hr IV Q12H VEE Ondansetron HCl (Ondansetron 4 Mg/2 Ml Sdv) 4 mg IVPUSH Q6H PRN PRN Reason: Nausea/Vomiting Pantoprazole Sodium (Pantoprazole 40 Mg/10 Ml Syringe) 40 mg IV Q12H VEE Sodium Chloride (Sodium Chloride 0.65% Nasal [place] 45 Ml Bottle) 0 ml DUKE Q2H PRN PRN Reason: Dryness Last Admin: 09/26/21 05:35 Dose: 1 spray Documented by: Vancomycin HCl (Pharmacy To Dose - Vancomycin) 1 dose .XX ASDIRECTED VEE Discontinued Medications Albuterol/Ipratropium (Albuterol/Ipratropium 3.0-0.5 Mg/3 Ml Neb Soln) 3 ml NEB ONETIME ONE Stop: 09/26/21 07:29 Last Admin: 09/26/21 07:57 Dose: 3 ml Documented by: Digoxin (Digoxin 500 Mcg/2 Ml Amp) 250 mcg IVPUSH ONETIME ONE Stop: 09/24/21 20:35 Last Admin: 09/24/21 21:32 Dose: 250 mcg Documented by: Diltiazem HCl (Diltiazem 25 Mg/5 Ml Sdv) 20 mg IVPUSH ONETIME ONE Stop: 09/24/21 15:41 Last Admin: 09/24/21 15:50 Dose: 20 mg Documented by: Sodium Chloride (Normal Saline) 1,000 mls @ 999 mls/hr IV .Bolus ONE Stop: 09/23/21 15:38 Last Admin: 09/23/21 14:40 Dose: 999 mls/hr Documented by: Sodium Chloride (Normal Saline) 1,000 mls @ 125 mls/hr IV ASDIRECTED VEE Last Admin: 09/24/21 21:43 Dose: 125 mls/hr Documented by: Diltiazem HCl 100 mg/ Sodium (Chloride) 100 mls @ 5 mls/hr IV NOW VEE; Protocol Last Titration: 09/24/21 21:00 Dose: 0 mg/hr, 0 mls/hr Documented by: Heparin Sodium/Sodium Chloride (Heparin 25,000 Units In 1/2 Ns 500 Ml) 500 mls @ 21.84 mls/hr IV TITRATE VEE; Protocol Sodium Chloride (Normal Saline) 500 mls @ 999 mls/hr IV .BOLUS ONE Stop: 09/24/21 19:53 Last Admin: 09/24/21 20:35 Dose: 999 mls/hr Documented by: Amiodarone HCl/Dextrose 150 mg (/ Premix) 100 mls @ 400 mls/hr IV NOW ONE; Protocol Stop: 09/24/21 20:48 Last Admin: 09/24/21 21:33 Dose: 400 mls/hr Documented by: Amiodarone HCl/Dextrose (Nexterone In Dextrose 360 Mg/200 Ml) 360 mg in 200 mls @ 33.333 mls/hr IV ASDIRECTED VEE; Protocol Last Admin: 09/25/21 15:23 Dose: 0.5 mg/min, 16.667 mls/hr Documented by: Amiodarone HCl/Dextrose (Nexterone In Dextrose 360 Mg/200 Ml) 360 mg in 200 mls @ 16.667 mls/hr IV ASDIRECTED VEE; Protocol Stop: 09/26/21 22:01 Pantoprazole Sodium 40 mg/ (Premix) 10 mls @ 300 mls/hr IV Q12H VEE Last Admin: 09/26/21 08:03 Dose: 300 mls/hr Documented by: Magnesium Sulfate 2 gm/ Premix 50 mls @ 25 mls/hr IV ONETIME ONE Stop: 09/26/21 11:44 Last Admin: 09/26/21 10:40 Dose: 25 mls/hr Documented by: Pantoprazole Sodium (Pantoprazole 40 Mg/10 Ml Syringe) 40 mg IVPUSH Q12HR VEE Last Admin: 09/23/21 21:18 Dose: Not Given Documented by: Pantoprazole Sodium (Pantoprazole 40 Mg/10 Ml Syringe) 40 mg IVPUSH Q12HR VEE Last Admin: 09/25/21 08:03 Dose: 40 mg Documented by: Potassium Chloride (Potassium Chloride 10% 20 Meq/15 Ml Soln 30 Ml Ud Cup) 40 meq PO ONETIME ONE Stop: 09/24/21 11:32 Last Admin: 09/24/21 12:02 Dose: 40 meq Documented by: Potassium Chloride (Potassium Chloride 20 Meq Tab.Er) 40 meq PO ONETIME ONE Stop: 09/26/21 09:09 Last Admin: 09/26/21 10:00 Dose: 40 meq Documented by: - Exam Central Line Total Time: 2Days 23Hours General: Alert, Oriented Neck: Supple Lungs: Clear to Auscultation, Normal Respiratory Effort Cardiovascular: Regular Rate, Regular Rhythm GI/Abdominal Exam: Soft, Non-Tender, No Distention Extremities: Non-Tender, No Pedal Edema Skin: Warm, Dry, Intact Neurological: No New Focal Deficit - Patient Data Lab Results Last 24 hrs: Laboratory Results - last 24 hr 09/26/21 09/26/21 09/26/21 Range/Units 04:55 04:55 04:55 WBC 10.54 (4.0-11.0) K/uL RBC 3.86 L (4.50-5.90) M/uL Hgb 11.6 L (13.0-17.0) g/dL Hct 34.4 L (38.0-50.0) % MCV 89.1 (80.0-98.0) fL MCH 30.1 (27.0-32.0) pg MCHC 33.7 (31.0-37.0) g/dL RDW Std Deviation 46.2 (28.0-62.0) fl RDW Coeff of Yaneli 14 (11.0-15.0) % Plt Count 182 (150-400) K/uL MPV 10.70 (7.40-12.00) fL Neut % (Auto) 84.0 H (48.0-80.0) % Lymph % (Auto) 6.0 L (16.0-40.0) % Wood % (Auto) 7.6 (0.0-15.0) % Eos % (Auto) 2.3 (0.0-7.0) % Baso % (Auto) 0.1 (0.0-1.5) % Neut # (Auto) 8.9 H (1.4-5.7) K/uL Lymph # (Auto) 0.6 (0.6-2.4) K/uL Wood # (Auto) 0.8 (0.0-0.8) K/uL Eos # (Auto) 0.2 (0.0-0.7) K/uL Baso # (Auto) 0.0 (0.0-0.1) K/uL Nucleated RBC % 0.0 /100WBC Nucleated RBCs # 0 K/uL APTT 33.4 H (18.6-31.3) SEC Sodium 142 (136-148) mmol/L Potassium 3.3 L (3.5-5.1) mmol/L Chloride 108 H (98-107) mmol/L Carbon Dioxide 19.6 L (21.0-32.0) mmol/L BUN 14 (7.0-18.0) mg/dL Creatinine 1.4 H (0.8-1.3) mg/dL Est Cr Clr Drug Dosing 50.89 mL/min Estimated GFR (MDRD) 50.9 ml/min Glucose 91 (74-106) mg/dL Calcium 8.2 L (8.5-10.1) mg/dL Magnesium (1.8-2.4) mg/dL Total Bilirubin 0.4 (0.2-1.0) mg/dL AST 16 (15-37) IU/L ALT 15 (14-63) IU/L Alkaline Phosphatase 63 (46-116) U/L Total Protein 5.8 L (6.4-8.2) g/dL Albumin 2.3 L (3.4-5.0) g/dL Globulin 3.5 (2.6-4.0) g/dL Albumin/Globulin Ratio 0.7 L (0.9-1.6) Vancomycin Trough (5.0-10.0) ug/mL 09/26/21 09/26/21 Range/Units 04:55 16:09 WBC (4.0-11.0) K/uL RBC (4.50-5.90) M/uL Hgb (13.0-17.0) g/dL Hct (38.0-50.0) % MCV (80.0-98.0) fL MCH (27.0-32.0) pg MCHC (31.0-37.0) g/dL RDW Std Deviation (28.0-62.0) fl RDW Coeff of Yaneli (11.0-15.0) % Plt Count (150-400) K/uL MPV (7.40-12.00) fL Neut % (Auto) (48.0-80.0) % Lymph % (Auto) (16.0-40.0) % Wood % (Auto) (0.0-15.0) % Eos % (Auto) (0.0-7.0) % Baso % (Auto) (0.0-1.5) % Neut # (Auto) (1.4-5.7) K/uL Lymph # (Auto) (0.6-2.4) K/uL Wood # (Auto) (0.0-0.8) K/uL Eos # (Auto) (0.0-0.7) K/uL Baso # (Auto) (0.0-0.1) K/uL Nucleated RBC % /100WBC Nucleated RBCs # K/uL APTT (18.6-31.3) SEC Sodium (136-148) mmol/L Potassium (3.5-5.1) mmol/L Chloride (98-107) mmol/L Carbon Dioxide (21.0-32.0) mmol/L BUN (7.0-18.0) mg/dL Creatinine (0.8-1.3) mg/dL Est Cr Clr Drug Dosing mL/min Estimated GFR (MDRD) ml/min Glucose (74-106) mg/dL Calcium (8.5-10.1) mg/dL Magnesium 1.4 L (1.8-2.4) mg/dL Total Bilirubin (0.2-1.0) mg/dL AST (15-37) IU/L ALT (14-63) IU/L Alkaline Phosphatase (46-116) U/L Total Protein (6.4-8.2) g/dL Albumin (3.4-5.0) g/dL Globulin (2.6-4.0) g/dL Albumin/Globulin Ratio (0.9-1.6) Vancomycin Trough 12.0 H (5.0-10.0) ug/mL Result Diagrams: 09/26/21 04:55 09/26/21 04:55 Jose Results Last 24 hrs: Microbiology 09/23/21 15:31 Aerobic Blood Culture - Preliminary Blood - Venous - Lab Draw NO GROWTH AFTER 3 DAYS Anaerobic Blood Culture - Preliminary NO GROWTH AFTER 3 DAYS 09/23/21 15:25 Aerobic Blood Culture - Preliminary Blood - Venous NO GROWTH AFTER 3 DAYS Anaerobic Blood Culture - Final 09/24/21 06:35 Stool Culture - Preliminary Stool / Feces Shiga Toxin I & II - Final Sepsis Event Note - Evaluation Sepsis Screening Result: No Definite Risk - Focused Exam Vital Signs: Vital Signs Temp Resp BP BP Pulse Ox Pulse Ox 09/26/21 18:00 22 H 141/69 H 94 L 09/26/21 17:00 23 H 151/75 H 95 09/26/21 16:00 20 153/63 H 96 09/26/21 15:00 22 H 148/63 H 92 L 97 09/26/21 14:00 20 150/60 H 93 L 09/26/21 13:00 18 145/60 H 96 09/26/21 12:00 37.3 C 20 168/73 H 92 L 09/26/21 11:00 23 H 168/81 H 94 L 09/26/21 10:00 22 H 142/59 H 95 09/26/21 09:00 20 143/59 H 93 L 09/26/21 08:00 36.6 C 19 152/66 H 94 L - Problem List & Annotations (1) NIKI (acute kidney injury) SNOMED Code(s): 74347511, 67822738 Code(s): N17.9 - ACUTE KIDNEY FAILURE, UNSPECIFIED Status: Acute Current Visit: Yes (2) Proctitis SNOMED Code(s): 6277650 Code(s): K62.89 - OTHER SPECIFIED DISEASES OF ANUS AND RECTUM Status: Acute Current Visit: Yes (3) Septic shock SNOMED Code(s): 90141362 Code(s): A41.9 - SEPSIS, UNSPECIFIED ORGANISM; R65.21 - SEVERE SEPSIS WITH SEPTIC SHOCK Status: Acute Current Visit: Yes - Problem List Review Problem List Initiated/Reviewed/Updated: Yes - My Orders Last 24 Hours: My Active Orders 09/25/21 21:35 Renew/Continue Urinary Catheter [OM.PC] Routine 09/26/21 09:36 Albuterol/Ipratropium [DuoNeb 3.0-0.5 MG/3 ML] 3 ml NEB Q4H PRN 09/26/21 09:37 RT Aerosol Therapy [RC] ASDIRECTED 09/26/21 10:10 Echo Comp wo Cont [US] Routine 09/26/21 16:53 Arterial Line Discontinue [OM.PC] Routine 09/26/21 16:54 Consult to Physical Therapy [PT Evaluation and Treatment] [CONS] Routine 09/26/21 21:00 Pantoprazole [ProTONIX] 40 mg IV Q12H 09/27/21 05:11 CBC WITH AUTO DIFF [HEME] AM COMPREHENSIVE METABOLIC PN,CMP [CHEM] AM 09/27/21 05:30 VANCOmycin 1.5 GM/300 ML 1.5 gm Premix Bag 1 bag IV Q12H 09/28/21 05:11 CBC WITH AUTO DIFF [HEME] AM COMPREHENSIVE METABOLIC PN,CMP [CHEM] AM - Plan Plan:: 65 yo male admitted for septic shock with likely source being colon and GI bleed Septic shock: weaned off levophed Proctitis: continue vancomycin and Zosyn, cultures pending, Dr. Aparicio consulted GI bleed: on protonix, Hgb stable A.fib with RVR: rate controlled, finished IV loading of amiodarone, will continue oral dosing
[2021-09-26] MEDS: Pantoprazole 40 MG/10 ML Syringe IV SCH (20:21)
[2021-09-27] MEDS: Piperacillin/Tazobactam 3.375 GM in Sodium Chloride 0.9% 100 ML IV SCH ×4 (03:10→20:58)
[2021-09-27] MEDS: Albuterol/Ipratropium 3.0-0.5 MG/3 ML Neb Soln NEB PRN ×2 (03:26→22:28)
[2021-09-27] MEDS: VANCOmycin 1.5 GM/300 ML 1.5 GM in Premix Bag 1 BAG IV SCH ×2 (05:50→17:19)
[2021-09-27 07:26] LABS: CARBON DIOXIDE,CO2 22.4 mmol/L (21.0-32.0); POTASSIUM,K 3.1 mmol/L (3.5-5.1)
[2021-09-27] MEDS: Amiodarone 200 MG Tab PO SCH ×2 (08:38→22:05)
[2021-09-27] MEDS: Pantoprazole 40 MG/10 ML Syringe IV SCH ×2 (08:38→20:57)
[2021-09-27] MEDS: guaiFENesin/Dextromethorphan 100-10 MG/5 ML Soln 10 ML Cup PO PRN (12:03)
[2021-09-27] MEDS ORDERED: Diltiazem 25 MG/5 ML SDV IVPUSH ONE ×2 (15:09→21:50)
[2021-09-27] MEDS: Metoprolol Tartrate 25 MG Tab PO SCH ×2 (15:35→20:56)
--- NOTE | 2021-09-27 17:09 | ECHO ---
EXAM DATE: 09/23/21 PATIENT'S AGE: 65 The ECHO report has been scanned into [employer] and can be seen in this patient's EMR (Electronic Medical Record) under the REPORTS section. The report has also been scanned into PACS. MARY
--- NOTE | 2021-09-27 17:20 | PCM.PN ---
- General Info Date of Service: 09/27/21 - Review of Systems Systems Review Comment:: generalized weakness, reports sore throat and nasal congestion - Patient Data Vitals - Most Recent: Last Vital Signs Temp 36.3 C 09/27/21 12:00 Pulse 142 H 09/27/21 15:35 Resp 23 H 09/27/21 13:00 BP 140/92 H 09/27/21 15:35 Pulse Ox 92 L 09/27/21 13:00 Weight - Most Recent: 101 kg I&O - Last 24 Hours: Intake & Output 09/27/21 09/27/21 09/27/21 06:59 14:59 22:59 Intake Total 750 500 Output Total 800 600 Balance -50 -100 Lab Results Last 24 Hours: Laboratory Results - last 24 hr 09/23/21 09/27/21 09/27/21 Range/Units 15:31 05:50 05:50 WBC 6.96 (4.0-11.0) K/uL RBC 3.68 L (4.50-5.90) M/uL Hgb 11.0 L (13.0-17.0) g/dL Hct 32.5 L (38.0-50.0) % MCV 88.3 (80.0-98.0) fL MCH 29.9 (27.0-32.0) pg MCHC 33.8 (31.0-37.0) g/dL RDW Std Deviation 45.1 (28.0-62.0) fl RDW Coeff of Yaneli 14 (11.0-15.0) % Plt Count 202 (150-400) K/uL MPV 10.00 (7.40-12.00) fL Neut % (Auto) 84.0 H (48.0-80.0) % Lymph % (Auto) 7.3 L (16.0-40.0) % [place] % (Auto) 7.5 (0.0-15.0) % Eos % (Auto) 1.1 (0.0-7.0) % Baso % (Auto) 0.1 (0.0-1.5) % Neut # (Auto) 5.8 H (1.4-5.7) K/uL Lymph # (Auto) 0.5 L (0.6-2.4) K/uL [place] # (Auto) 0.5 (0.0-0.8) K/uL Eos # (Auto) 0.1 (0.0-0.7) K/uL Baso # (Auto) 0.0 (0.0-0.1) K/uL Nucleated RBC % 0.0 /100WBC Nucleated RBCs # 0 K/uL Sodium 143 (136-148) mmol/L Potassium 3.1 L (3.5-5.1) mmol/L Chloride 109 H (98-107) mmol/L Carbon Dioxide 22.4 (21.0-32.0) mmol/L BUN 10 (7.0-18.0) mg/dL Creatinine 1.3 (0.8-1.3) mg/dL Est Cr Clr Drug Dosing 54.81 mL/min Estimated GFR (MDRD) 55.4 ml/min Glucose 136 H (74-106) mg/dL Calcium 7.9 L (8.5-10.1) mg/dL Magnesium (1.8-2.4) mg/dL Total Bilirubin 0.5 (0.2-1.0) mg/dL AST 19 (15-37) IU/L ALT 20 (14-63) IU/L Alkaline Phosphatase 58 (46-116) U/L Total Protein 5.8 L (6.4-8.2) g/dL Albumin 2.3 L (3.4-5.0) g/dL Globulin 3.5 (2.6-4.0) g/dL Albumin/Globulin Ratio 0.7 L (0.9-1.6) Crossmatch See Detail 09/27/21 Range/Units 05:50 WBC (4.0-11.0) K/uL RBC (4.50-5.90) M/uL Hgb (13.0-17.0) g/dL Hct (38.0-50.0) % MCV (80.0-98.0) fL MCH (27.0-32.0) pg MCHC (31.0-37.0) g/dL RDW Std Deviation (28.0-62.0) fl RDW Coeff of Yaneli (11.0-15.0) % Plt Count (150-400) K/uL MPV (7.40-12.00) fL Neut % (Auto) (48.0-80.0) % Lymph % (Auto) (16.0-40.0) % [place] % (Auto) (0.0-15.0) % Eos % (Auto) (0.0-7.0) % Baso % (Auto) (0.0-1.5) % Neut # (Auto) (1.4-5.7) K/uL Lymph # (Auto) (0.6-2.4) K/uL [place] # (Auto) (0.0-0.8) K/uL Eos # (Auto) (0.0-0.7) K/uL Baso # (Auto) (0.0-0.1) K/uL Nucleated RBC % /100WBC Nucleated RBCs # K/uL Sodium (136-148) mmol/L Potassium (3.5-5.1) mmol/L Chloride (98-107) mmol/L Carbon Dioxide (21.0-32.0) mmol/L BUN (7.0-18.0) mg/dL Creatinine (0.8-1.3) mg/dL Est Cr Clr Drug Dosing mL/min Estimated GFR (MDRD) ml/min Glucose (74-106) mg/dL Calcium (8.5-10.1) mg/dL Magnesium 1.6 L (1.8-2.4) mg/dL Total Bilirubin (0.2-1.0) mg/dL AST (15-37) IU/L ALT (14-63) IU/L Alkaline Phosphatase (46-116) U/L Total Protein (6.4-8.2) g/dL Albumin (3.4-5.0) g/dL Globulin (2.6-4.0) g/dL Albumin/Globulin Ratio (0.9-1.6) Crossmatch Jose Results Last 24 Hours: Microbiology 09/23/21 15:31 Aerobic Blood Culture - Preliminary Blood - Venous - Lab Draw NO GROWTH AFTER 4 DAYS Anaerobic Blood Culture - Preliminary NO GROWTH AFTER 4 DAYS 09/23/21 15:25 Aerobic Blood Culture - Preliminary Blood - Venous NO GROWTH AFTER 4 DAYS Anaerobic Blood Culture - Final 09/24/21 06:35 Stool Culture - Preliminary Stool / Feces Shiga Toxin I & II - Final Med Orders - Current: Current Medications Acetaminophen (Acetaminophen 325 Mg Tab) 650 mg PO Q6H PRN PRN Reason: Fever Last Admin: 09/26/21 18:23 Dose: 650 mg Documented by: Albuterol/Ipratropium (Albuterol/Ipratropium 3.0-0.5 Mg/3 Ml Neb Soln) 3 ml NEB Q4H PRN PRN Reason: Cough Last Admin: 09/27/21 03:26 Dose: 3 ml Documented by: Amiodarone HCl (Amiodarone 200 Mg Tab) 200 mg PO DAILY [facility] Last Admin: 09/27/21 08:38 Dose: 200 mg Documented by: Guaifenesin/Dextromethorphan (Guaifenesin/Dextromethorphan 100-10 Mg/5 Ml Soln 10 Ml Cup) 10 ml PO Q6H PRN PRN Reason: Cough Last Admin: 09/27/21 12:03 Dose: 10 ml Documented by: Norepinephrine Bitartrate (Norepinephr-0.9% Nacl 4 Mg/250) 4 mg in 250 mls @ 7.5 mls/hr IV TITRATE [facility]; Protocol Last Titration: 09/25/21 13:10 Dose: 0 mcg/min, 0 mls/hr Documented by: Piperacillin Sod/Tazobactam (Sod 3.375 gm/ Sodium Chloride) 100 mls @ 200 mls/hr IV Q6H [facility] Last Admin: 09/27/21 15:36 Dose: 200 mls/hr Documented by: Vancomycin HCl 1.5 gm/ Premix 300 mls @ 200 mls/hr IV Q12H [facility] Last Admin: 09/27/21 05:50 Dose: 200 mls/hr Documented by: Metoprolol Tartrate (Metoprolol Tartrate 25 Mg Tab) 25 mg PO BID [facility] Last Admin: 09/27/21 15:35 Dose: 25 mg Documented by: Ondansetron HCl (Ondansetron 4 Mg/2 Ml Sdv) 4 mg IVPUSH Q6H PRN PRN Reason: Nausea/Vomiting Pantoprazole Sodium (Pantoprazole 40 Mg/10 Ml Syringe) 40 mg IV Q12H [facility] Last Admin: 09/27/21 08:38 Dose: 40 mg Documented by: Sodium Chloride (Sodium Chloride 0.65% Nasal [place] 45 Ml Bottle) 0 ml DUKE Q2H PRN PRN Reason: Dryness Last Admin: 09/26/21 05:35 Dose: 1 spray Documented by: Vancomycin HCl (Pharmacy To Dose - Vancomycin) 1 dose .XX ASDIRECTED VEE Discontinued Medications Albuterol/Ipratropium (Albuterol/Ipratropium 3.0-0.5 Mg/3 Ml Neb Soln) 3 ml NEB ONETIME ONE Stop: 09/26/21 07:29 Last Admin: 09/26/21 07:57 Dose: 3 ml Documented by: Digoxin (Digoxin 500 Mcg/2 Ml Amp) 250 mcg IVPUSH ONETIME ONE Stop: 09/24/21 20:35 Last Admin: 09/24/21 21:32 Dose: 250 mcg Documented by: Diltiazem HCl (Diltiazem 25 Mg/5 Ml Sdv) 20 mg IVPUSH ONETIME ONE Stop: 09/24/21 15:41 Last Admin: 09/24/21 15:50 Dose: 20 mg Documented by: Diltiazem HCl (Diltiazem 25 Mg/5 Ml Sdv) 10 mg IVPUSH ONETIME ONE Stop: 09/27/21 15:10 Last Admin: 09/27/21 15:35 Dose: 10 mg Documented by: Sodium Chloride (Normal Saline) 1,000 mls @ 999 mls/hr IV .Bolus ONE Stop: 09/23/21 15:38 Last Admin: 09/23/21 14:40 Dose: 999 mls/hr Documented by: Vancomycin HCl 1.5 gm/ Premix 300 mls @ 200 mls/hr IV Q24H VEE Stop: 09/26/21 19:30 Last Admin: 09/26/21 16:04 Dose: 200 mls/hr Documented by: Sodium Chloride (Normal Saline) 1,000 mls @ 125 mls/hr IV ASDIRECTED VEE Last Admin: 09/24/21 21:43 Dose: 125 mls/hr Documented by: Diltiazem HCl 100 mg/ Sodium (Chloride) 100 mls @ 5 mls/hr IV NOW VEE; Protocol Last Titration: 09/24/21 21:00 Dose: 0 mg/hr, 0 mls/hr Documented by: Heparin Sodium/Sodium Chloride (Heparin 25,000 Units In 1/2 Ns 500 Ml) 500 mls @ 21.84 mls/hr IV TITRATE VEE; Protocol Sodium Chloride (Normal Saline) 500 mls @ 999 mls/hr IV .BOLUS ONE Stop: 09/24/21 19:53 Last Admin: 09/24/21 20:35 Dose: 999 mls/hr Documented by: Amiodarone HCl/Dextrose 150 mg (/ Premix) 100 mls @ 400 mls/hr IV NOW ONE; Protocol Stop: 09/24/21 20:48 Last Admin: 09/24/21 21:33 Dose: 400 mls/hr Documented by: Amiodarone HCl/Dextrose (Nexterone In Dextrose 360 Mg/200 Ml) 360 mg in 200 mls @ 33.333 mls/hr IV ASDIRECTED VEE; Protocol Last Admin: 09/25/21 15:23 Dose: 0.5 mg/min, 16.667 mls/hr Documented by: Amiodarone HCl/Dextrose (Nexterone In Dextrose 360 Mg/200 Ml) 360 mg in 200 mls @ 16.667 mls/hr IV ASDIRECTED VEE; Protocol Stop: 09/26/21 22:01 Pantoprazole Sodium 40 mg/ (Premix) 10 mls @ 300 mls/hr IV Q12H VEE Last Admin: 09/26/21 08:03 Dose: 300 mls/hr Documented by: Magnesium Sulfate 2 gm/ Premix 50 mls @ 25 mls/hr IV ONETIME ONE Stop: 09/26/21 11:44 Last Admin: 09/26/21 10:40 Dose: 25 mls/hr Documented by: Pantoprazole Sodium (Pantoprazole 40 Mg/10 Ml Syringe) 40 mg IVPUSH Q12HR VEE Last Admin: 09/23/21 21:18 Dose: Not Given Documented by: Pantoprazole Sodium (Pantoprazole 40 Mg/10 Ml Syringe) 40 mg IVPUSH Q12HR VEE Last Admin: 09/25/21 08:03 Dose: 40 mg Documented by: Potassium Chloride (Potassium Chloride 10% 20 Meq/15 Ml Soln 30 Ml Ud Cup) 40 meq PO ONETIME ONE Stop: 09/24/21 11:32 Last Admin: 09/24/21 12:02 Dose: 40 meq Documented by: Potassium Chloride (Potassium Chloride 20 Meq Tab.Er) 40 meq PO ONETIME ONE Stop: 09/26/21 09:09 Last Admin: 09/26/21 10:00 Dose: 40 meq Documented by: - Exam Central Line Total Time: 3Days 23Hours General: Alert, Oriented Neck: Supple Lungs: Clear to Auscultation, Normal Respiratory Effort Cardiovascular: Regular Rate, Regular Rhythm GI/Abdominal Exam: Normal Bowel Sounds, Soft, Non-Tender Extremities: No Pedal Edema Skin: Warm, Dry, Intact Neurological: No New Focal Deficit - Patient Data Lab Results Last 24 hrs: Laboratory Results - last 24 hr 09/23/21 09/27/21 09/27/21 Range/Units 15:31 05:50 05:50 WBC 6.96 (4.0-11.0) K/uL RBC 3.68 L (4.50-5.90) M/uL Hgb 11.0 L (13.0-17.0) g/dL Hct 32.5 L (38.0-50.0) % MCV 88.3 (80.0-98.0) fL MCH 29.9 (27.0-32.0) pg MCHC 33.8 (31.0-37.0) g/dL RDW Std Deviation 45.1 (28.0-62.0) fl RDW Coeff of Yaneli 14 (11.0-15.0) % Plt Count 202 (150-400) K/uL MPV 10.00 (7.40-12.00) fL Neut % (Auto) 84.0 H (48.0-80.0) % Lymph % (Auto) 7.3 L (16.0-40.0) % [place] % (Auto) 7.5 (0.0-15.0) % Eos % (Auto) 1.1 (0.0-7.0) % Baso % (Auto) 0.1 (0.0-1.5) % Neut # (Auto) 5.8 H (1.4-5.7) K/uL Lymph # (Auto) 0.5 L (0.6-2.4) K/uL [place] # (Auto) 0.5 (0.0-0.8) K/uL Eos # (Auto) 0.1 (0.0-0.7) K/uL Baso # (Auto) 0.0 (0.0-0.1) K/uL Nucleated RBC % 0.0 /100WBC Nucleated RBCs # 0 K/uL Sodium 143 (136-148) mmol/L Potassium 3.1 L (3.5-5.1) mmol/L Chloride 109 H (98-107) mmol/L Carbon Dioxide 22.4 (21.0-32.0) mmol/L BUN 10 (7.0-18.0) mg/dL Creatinine 1.3 (0.8-1.3) mg/dL Est Cr Clr Drug Dosing 54.81 mL/min Estimated GFR (MDRD) 55.4 ml/min Glucose 136 H (74-106) mg/dL Calcium 7.9 L (8.5-10.1) mg/dL Magnesium (1.8-2.4) mg/dL Total Bilirubin 0.5 (0.2-1.0) mg/dL AST 19 (15-37) IU/L ALT 20 (14-63) IU/L Alkaline Phosphatase 58 (46-116) U/L Total Protein 5.8 L (6.4-8.2) g/dL Albumin 2.3 L (3.4-5.0) g/dL Globulin 3.5 (2.6-4.0) g/dL Albumin/Globulin Ratio 0.7 L (0.9-1.6) Crossmatch See Detail 09/27/21 Range/Units 05:50 WBC (4.0-11.0) K/uL RBC (4.50-5.90) M/uL Hgb (13.0-17.0) g/dL Hct (38.0-50.0) % MCV (80.0-98.0) fL MCH (27.0-32.0) pg MCHC (31.0-37.0) g/dL RDW Std Deviation (28.0-62.0) fl RDW Coeff of Yaneil (11.0-15.0) % Plt Count (150-400) K/uL MPV (7.40-12.00) fL Neut % (Auto) (48.0-80.0) % Lymph % (Auto) (16.0-40.0) % [place] % (Auto) (0.0-15.0) % Eos % (Auto) (0.0-7.0) % Baso % (Auto) (0.0-1.5) % Neut # (Auto) (1.4-5.7) K/uL Lymph # (Auto) (0.6-2.4) K/uL [place] # (Auto) (0.0-0.8) K/uL Eos # (Auto) (0.0-0.7) K/uL Baso # (Auto) (0.0-0.1) K/uL Nucleated RBC % /100WBC Nucleated RBCs # K/uL Sodium (136-148) mmol/L Potassium (3.5-5.1) mmol/L Chloride (98-107) mmol/L Carbon Dioxide (21.0-32.0) mmol/L BUN (7.0-18.0) mg/dL Creatinine (0.8-1.3) mg/dL Est Cr Clr Drug Dosing mL/min Estimated GFR (MDRD) ml/min Glucose (74-106) mg/dL Calcium (8.5-10.1) mg/dL Magnesium 1.6 L (1.8-2.4) mg/dL Total Bilirubin (0.2-1.0) mg/dL AST (15-37) IU/L ALT (14-63) IU/L Alkaline Phosphatase (46-116) U/L Total Protein (6.4-8.2) g/dL Albumin (3.4-5.0) g/dL Globulin (2.6-4.0) g/dL Albumin/Globulin Ratio (0.9-1.6) Crossmatch Result Diagrams: 09/27/21 05:50 09/27/21 05:50 Jose Results Last 24 hrs: Microbiology 09/23/21 15:31 Aerobic Blood Culture - Preliminary Blood - Venous - Lab Draw NO GROWTH AFTER 4 DAYS Anaerobic Blood Culture - Preliminary NO GROWTH AFTER 4 DAYS 09/23/21 15:25 Aerobic Blood Culture - Preliminary Blood - Venous NO GROWTH AFTER 4 DAYS Anaerobic Blood Culture - Final 09/24/21 06:35 Stool Culture - Preliminary Stool / Feces Shiga Toxin I & II - Final Sepsis Event Note - Evaluation Sepsis Screening Result: Sepsis Risk - Focused Exam Vital Signs: Vital Signs Temp Pulse Resp BP BP Pulse Ox 09/27/21 15:35 142 H 140/92 H 09/27/21 13:00 23 H 166/80 H 92 L 09/27/21 12:00 36.3 C 187/91 H 94 L 09/27/21 11:00 162/97 H 92 L 09/27/21 10:00 28 H 160/82 H 94 L 09/27/21 09:00 34 H 181/83 H 93 L 09/27/21 08:00 36.2 C 24 H 171/82 H 94 L 09/27/21 07:00 27 H 168/96 H 93 L 09/27/21 06:00 27 H 150/93 H 92 L - Problem List & Annotations (1) NIKI (acute kidney injury) SNOMED Code(s): 98112113, 81890584 Code(s): N17.9 - ACUTE KIDNEY FAILURE, UNSPECIFIED Status: Acute Current Visit: Yes (2) Proctitis SNOMED Code(s): 9817763 Code(s): K62.89 - OTHER SPECIFIED DISEASES OF ANUS AND RECTUM Status: Acute Current Visit: Yes (3) Septic shock SNOMED Code(s): 43508498 Code(s): A41.9 - SEPSIS, UNSPECIFIED ORGANISM; R65.21 - SEVERE SEPSIS WITH SEPTIC SHOCK Status: Acute Current Visit: Yes - Problem List Review Problem List Initiated/Reviewed/Updated: Yes - My Orders Last 24 Hours: My Active Orders 09/26/21 16:53 Arterial Line Discontinue [OM.PC] Routine 09/26/21 16:54 Consult to Physical Therapy [PT Evaluation and Treatment] [CONS] Routine 09/26/21 21:00 Pantoprazole [ProTONIX] 40 mg IV Q12H 09/27/21 05:30 VANCOmycin 1.5 GM/300 ML 1.5 gm Premix Bag 1 bag IV Q12H 09/27/21 10:14 Central Venous Line Discontinue [OM.PC] Routine 09/27/21 11:31 Dextromethorphan/guaiFENesin [Robitussin DM] 10 ml PO Q6H PRN 09/27/21 14:14 Transfer Patient (Change bed) [ADT] Routine Telemetry Monitoring [Cardiac Monitoring] [RC] Q8H 09/27/21 15:15 Metoprolol Tartrate [Lopressor] 25 mg PO BID 09/28/21 05:11 CBC WITH AUTO DIFF [HEME] AM COMPREHENSIVE METABOLIC PN,CMP [CHEM] AM - Plan Plan:: 65 yo male admitted for septic shock with likely source being colon and GI bleed Septic shock: weaned off levophed Proctitis: continue vancomycin and Zosyn, cultures pending, Dr. Aparicio consulted and recommends scoping as outpatient GI bleed: on protonix, Hgb stable A.fib with RVR: rate controlled, finished IV loading of amiodarone, will continue oral dosing
[2021-09-27] MEDS: Sertraline 50 MG Tab PO SCH (19:28)
[2021-09-27] MEDS ORDERED: Diltiazem 25 MG/5 ML SDV ONE (21:46)
[2021-09-27] MEDS ORDERED: Digoxin 500 MCG/2 ML Amp IVPUSH ONE (21:55)
[2021-09-27] MEDS ORDERED: Potassium Chloride 20 MEQ Tab.ER PO ONE (22:00)
[2021-09-28] MEDS: Piperacillin/Tazobactam 3.375 GM in Sodium Chloride 0.9% 100 ML IV SCH ×4 (03:58→20:07)
[2021-09-28] MEDS ORDERED: Digoxin 500 MCG/2 ML Amp IVPUSH ONE (04:00)
[2021-09-28] MEDS: VANCOmycin 1.5 GM/300 ML 1.5 GM in Premix Bag 1 BAG IV SCH ×2 (05:19→18:45)
[2021-09-28 07:57] LABS: BLOOD UREA NITROGEN,BUN 8 mg/dL (7.0-18.0); CARBON DIOXIDE,CO2 19.7 mmol/L (21.0-32.0); CHLORIDE,CL 110 mmol/L (98-107); GLUCOSE RANDOM 105 mg/dL (74-106); POTASSIUM,K 3.8 mmol/L (3.5-5.1); SODIUM,NA 144 mmol/L (136-148)
[2021-09-28] MEDS: Amiodarone 200 MG Tab PO SCH (09:43)
[2021-09-28] MEDS: Sertraline 50 MG Tab PO SCH (09:44)
[2021-09-28] MEDS: Pantoprazole 40 MG/10 ML Syringe IV SCH ×2 (09:49→20:08)
[2021-09-28] MEDS: Metoprolol Tartrate 25 MG Tab PO SCH (09:52)
[2021-09-28] MEDS ORDERED: Digoxin 250 MCG Tab PO SCH (10:30)
[2021-09-28] MEDS: guaiFENesin/Dextromethorphan 100-10 MG/5 ML Soln 10 ML Cup PO PRN (13:25)
[2021-09-28] MEDS ORDERED: Metoprolol Tartrate 25 MG Tab PO ONE (14:15)
--- NOTE | 2021-09-28 14:20 | PCM.PN ---
- General Info Date of Service: 09/28/21 Admission Dx/Problem (Free Text): Pt is very weak. He tends to chock on foods. His BP is elevated this afternoon. His digoxin level also came back elevated at 2.4 The pt wants to be a DNR for future purposes. - Patient Data Vitals - Most Recent: Last Vital Signs Temp 96.3 F L 09/28/21 08:00 Pulse 85 09/28/21 11:04 Resp 22 H 09/28/21 11:04 BP 190/91 H 09/28/21 11:04 Pulse Ox 92 L 09/28/21 11:04 Weight - Most Recent: 222 lb 10.67 oz I&O - Last 24 Hours: Intake & Output 09/27/21 09/28/21 09/28/21 22:59 06:59 14:59 Intake Total 800 Output Total 1400 Balance -600 Lab Results Last 24 Hours: Laboratory Results - last 24 hr 09/28/21 09/28/21 09/28/21 Range/Units 05:44 05:44 05:44 WBC 10.47 (4.0-11.0) K/uL RBC 3.92 L (4.50-5.90) M/uL Hgb 11.7 L (13.0-17.0) g/dL Hct 35.0 L (38.0-50.0) % MCV 89.3 (80.0-98.0) fL MCH 29.8 (27.0-32.0) pg MCHC 33.4 (31.0-37.0) g/dL RDW Std Deviation 46.0 (28.0-62.0) fl RDW Coeff of Yaneli 14 (11.0-15.0) % Plt Count 219 (150-400) K/uL MPV 10.40 (7.40-12.00) fL Neut % (Auto) 82.2 H (48.0-80.0) % Lymph % (Auto) 7.7 L (16.0-40.0) % [place] % (Auto) 8.4 (0.0-15.0) % Eos % (Auto) 1.5 (0.0-7.0) % Baso % (Auto) 0.2 (0.0-1.5) % Neut # (Auto) 8.6 H (1.4-5.7) K/uL Lymph # (Auto) 0.8 (0.6-2.4) K/uL [place] # (Auto) 0.9 H (0.0-0.8) K/uL Eos # (Auto) 0.2 (0.0-0.7) K/uL Baso # (Auto) 0.0 (0.0-0.1) K/uL Nucleated RBC % 0.0 /100WBC Nucleated RBCs # 0 K/uL Sodium 144 (136-148) mmol/L Potassium 3.8 (3.5-5.1) mmol/L Chloride 110 H (98-107) mmol/L Carbon Dioxide 19.7 L (21.0-32.0) mmol/L BUN 8 (7.0-18.0) mg/dL Creatinine 1.2 (0.8-1.3) mg/dL Est Cr Clr Drug Dosing 59.38 mL/min Estimated GFR (MDRD) > 60.0 ml/min Glucose 105 (74-106) mg/dL Calcium 8.2 L (8.5-10.1) mg/dL Total Bilirubin 0.7 (0.2-1.0) mg/dL AST 22 (15-37) IU/L ALT 21 (14-63) IU/L Alkaline Phosphatase 65 (46-116) U/L Total Protein 6.0 L (6.4-8.2) g/dL Albumin 2.3 L (3.4-5.0) g/dL Globulin 3.7 (2.6-4.0) g/dL Albumin/Globulin Ratio 0.6 L (0.9-1.6) Digoxin 2.4 H (0.9-2.0) ng/mL Jose Results Last 24 Hours: Microbiology 09/24/21 06:35 Stool Culture - Final Stool / Feces Shiga Toxin I & II - Final 09/23/21 15:31 Aerobic Blood Culture - Preliminary Blood - Venous - Lab Draw NO GROWTH AFTER 4 DAYS Anaerobic Blood Culture - Preliminary NO GROWTH AFTER 4 DAYS 09/23/21 15:25 Aerobic Blood Culture - Preliminary Blood - Venous NO GROWTH AFTER 4 DAYS Anaerobic Blood Culture - Final Med Orders - Current: Current Medications Acetaminophen (Acetaminophen 325 Mg Tab) 650 mg PO Q6H PRN PRN Reason: Fever Last Admin: 09/26/21 18:23 Dose: 650 mg Documented by: Albuterol/Ipratropium (Albuterol/Ipratropium 3.0-0.5 Mg/3 Ml Neb Soln) 3 ml NEB Q4H PRN PRN Reason: Cough Last Admin: 09/27/21 22:28 Dose: 3 ml Documented by: Guaifenesin/Dextromethorphan (Guaifenesin/Dextromethorphan 100-10 Mg/5 Ml Soln 10 Ml Cup) 10 ml PO Q6H PRN PRN Reason: Cough Last Admin: 09/28/21 13:25 Dose: 10 ml Documented by: Norepinephrine Bitartrate (Norepinephr-0.9% Nacl 4 Mg/250) 4 mg in 250 mls @ 7.5 mls/hr IV TITRATE [facility]; Protocol Last Titration: 09/25/21 13:10 Dose: 0 mcg/min, 0 mls/hr Documented by: Piperacillin Sod/Tazobactam (Sod 3.375 gm/ Sodium Chloride) 100 mls @ 200 mls/hr IV Q6H [facility] Last Admin: 09/28/21 09:48 Dose: 200 mls/hr Documented by: Vancomycin HCl 1.5 gm/ Premix 300 mls @ 200 mls/hr IV Q12H [facility] Last Admin: 09/28/21 05:19 Dose: 200 mls/hr Documented by: Lisinopril (Lisinopril 10 Mg Tab) 10 mg PO DAILY [facility] Metoprolol Tartrate (Metoprolol Tartrate 50 Mg Tab) 50 mg PO BID [facility] Metoprolol Tartrate (Metoprolol Tartrate 25 Mg Tab) 25 mg PO ONETIME ONE Stop: 09/28/21 14:16 Ondansetron HCl (Ondansetron 4 Mg/2 Ml Sdv) 4 mg IVPUSH Q6H PRN PRN Reason: Nausea/Vomiting Pantoprazole Sodium (Pantoprazole 40 Mg/10 Ml Syringe) 40 mg IV Q12H [facility] Last Admin: 09/28/21 09:49 Dose: 40 mg Documented by: Sertraline HCl (Sertraline 50 Mg Tab) 50 mg PO DAILY [facility] Last Admin: 09/28/21 09:44 Dose: 50 mg Documented by: Sodium Chloride (Sodium Chloride 0.65% Nasal [place] 45 Ml Bottle) 0 ml [place]KE Q2H PRN PRN Reason: Dryness Last Admin: 09/26/21 05:35 Dose: 1 spray Documented by: Vancomycin HCl (Pharmacy To Dose - Vancomycin) 1 dose .XX ASDIRECTED [facility] Discontinued Medications Albuterol/Ipratropium (Albuterol/Ipratropium 3.0-0.5 Mg/3 Ml Neb Soln) 3 ml NEB ONETIME ONE Stop: 09/26/21 07:29 Last Admin: 09/26/21 07:57 Dose: 3 ml Documented by: Amiodarone HCl (Amiodarone 200 Mg Tab) 200 mg PO DAILY [facility] Last Admin: 09/27/21 08:38 Dose: 200 mg Documented by: Amiodarone HCl (Amiodarone 200 Mg Tab) 400 mg PO BID [facility] Last Admin: 09/28/21 09:43 Dose: 400 mg Documented by: Digoxin (Digoxin 500 Mcg/2 Ml Amp) 250 mcg IVPUSH ONETIME ONE Stop: 09/24/21 20:35 Last Admin: 09/24/21 21:32 Dose: 250 mcg Documented by: Digoxin (Digoxin 500 Mcg/2 Ml Amp) 500 mcg IVPUSH ONETIME ONE Stop: 09/27/21 21:56 Last Admin: 09/27/21 22:03 Dose: 500 mcg Documented by: Digoxin (Digoxin 500 Mcg/2 Ml Amp) 250 mcg IVPUSH ONETIME ONE Stop: 09/28/21 04:01 Last Admin: 09/28/21 03:58 Dose: 250 mcg Documented by: Digoxin (Digoxin 250 Mcg Tab) 250 mcg PO DAILY [facility] Last Admin: 09/28/21 11:02 Dose: 250 mcg Documented by: Diltiazem HCl (Diltiazem 25 Mg/5 Ml Sdv) 20 mg IVPUSH ONETIME ONE Stop: 09/24/21 15:41 Last Admin: 09/24/21 15:50 Dose: 20 mg Documented by: Diltiazem HCl (Diltiazem 25 Mg/5 Ml Sdv) 10 mg IVPUSH ONETIME ONE Stop: 09/27/21 15:10 Last Admin: 09/27/21 15:35 Dose: 10 mg Documented by: Diltiazem HCl (Diltiazem 25 Mg/5 Ml Sdv) 20 mg IVPUSH ONETIME ONE Stop: 09/27/21 21:51 Last Admin: 09/27/21 21:51 Dose: 20 mg Documented by: Diltiazem HCl (Diltiazem 25 Mg/5 Ml Sdv) Confirm Administered Dose 25 mg .ROUTE .STK-MED ONE Stop: 09/27/21 21:47 Last Admin: 09/27/21 21:54 Dose: Not Given Documented by: Sodium Chloride (Normal Saline) 1,000 mls @ 999 mls/hr IV .Bolus ONE Stop: 09/23/21 15:38 Last Admin: 09/23/21 14:40 Dose: 999 mls/hr Documented by: Vancomycin HCl 1.5 gm/ Premix 300 mls @ 200 mls/hr IV Q24H [facility] Stop: 09/26/21 19:30 Last Admin: 09/26/21 16:04 Dose: 200 mls/hr Documented by: Sodium Chloride (Normal Saline) 1,000 mls @ 125 mls/hr IV ASDIRECTED [facility] Last Admin: 09/24/21 21:43 Dose: 125 mls/hr Documented by: Diltiazem HCl 100 mg/ Sodium (Chloride) 100 mls @ 5 mls/hr IV NOW [facility]; Protocol Last Titration: 09/24/21 21:00 Dose: 0 mg/hr, 0 mls/hr Documented by: Heparin Sodium/Sodium Chloride (Heparin 25,000 Units In 1/2 Ns 500 Ml) 500 mls @ 21.84 mls/hr IV TITRATE [facility]; Protocol Sodium Chloride (Normal Saline) 500 mls @ 999 mls/hr IV .BOLUS ONE Stop: 09/24/21 19:53 Last Admin: 09/24/21 20:35 Dose: 999 mls/hr Documented by: Amiodarone HCl/Dextrose 150 mg (/ Premix) 100 mls @ 400 mls/hr IV NOW ONE; Protocol Stop: 09/24/21 20:48 Last Admin: 09/24/21 21:33 Dose: 400 mls/hr Documented by: Amiodarone HCl/Dextrose (Nexterone In Dextrose 360 Mg/200 Ml) 360 mg in 200 mls @ 33.333 mls/hr IV ASDIRECTED [facility]; Protocol Last Admin: 09/25/21 15:23 Dose: 0.5 mg/min, 16.667 mls/hr Documented by: Amiodarone HCl/Dextrose (Nexterone In Dextrose 360 Mg/200 Ml) 360 mg in 200 mls @ 16.667 mls/hr IV ASDIRECTED [facility]; Protocol Stop: 09/26/21 22:01 Pantoprazole Sodium 40 mg/ (Premix) 10 mls @ 300 mls/hr IV Q12H [facility] Last Admin: 09/26/21 08:03 Dose: 300 mls/hr Documented by: Magnesium Sulfate 2 gm/ Premix 50 mls @ 25 mls/hr IV ONETIME ONE Stop: 09/26/21 11:44 Last Admin: 09/26/21 10:40 Dose: 25 mls/hr Documented by: Metoprolol Tartrate (Metoprolol Tartrate 25 Mg Tab) 25 mg PO BID [facility] Last Admin: 09/28/21 09:52 Dose: 25 mg Documented by: Pantoprazole Sodium (Pantoprazole 40 Mg/10 Ml Syringe) 40 mg IVPUSH Q12HR [facility] Last Admin: 09/23/21 21:18 Dose: Not Given Documented by: Pantoprazole Sodium (Pantoprazole 40 Mg/10 Ml Syringe) 40 mg IVPUSH Q12HR [facility] Last Admin: 09/25/21 08:03 Dose: 40 mg Documented by: Potassium Chloride (Potassium Chloride 10% 20 Meq/15 Ml Soln 30 Ml Ud Cup) 40 m eq PO ONETIME ONE Stop: 09/24/21 11:32 Last Admin: 09/24/21 12:02 Dose: 40 meq Documented by: Potassium Chloride (Potassium Chloride 20 Meq Tab.Er) 40 meq PO ONETIME ONE Stop: 09/26/21 09:09 Last Admin: 09/26/21 10:00 Dose: 40 meq Documented by: Potassium Chloride (Potassium Chloride 20 Meq Tab.Er) 40 meq PO ONETIME ONE Stop: 09/27/21 22:01 Last Admin: 09/27/21 22:18 Dose: 40 meq Documented by: - Exam Central Line Total Time: 3Days 23Hours Physical Findings Comments:: General: Obese middle aged male. Looks older than stated age. CVS : S1S2 appreciated. irregular rate lungs: clear bilaterally pa: soft, obese, non tender. ext: no clubbing, cyanosis or edema. neuro: moves all extremities psych: flat affect. low mood. - Patient Data Lab Results Last 24 hrs: Laboratory Results - last 24 hr 09/28/21 09/28/21 09/28/21 Range/Units 05:44 05:44 05:44 WBC 10.47 (4.0-11.0) K/uL RBC 3.92 L (4.50-5.90) M/uL Hgb 11.7 L (13.0-17.0) g/dL Hct 35.0 L (38.0-50.0) % MCV 89.3 (80.0-98.0) fL MCH 29.8 (27.0-32.0) pg MCHC 33.4 (31.0-37.0) g/dL RDW Std Deviation 46.0 (28.0-62.0) fl RDW Coeff of Yaneli 14 (11.0-15.0) % Plt Count 219 (150-400) K/uL MPV 10.40 (7.40-12.00) fL Neut % (Auto) 82.2 H (48.0-80.0) % Lymph % (Auto) 7.7 L (16.0-40.0) % [place] % (Auto) 8.4 (0.0-15.0) % Eos % (Auto) 1.5 (0.0-7.0) % Baso % (Auto) 0.2 (0.0-1.5) % Neut # (Auto) 8.6 H (1.4-5.7) K/uL Lymph # (Auto) 0.8 (0.6-2.4) K/uL [place] # (Auto) 0.9 H (0.0-0.8) K/uL Eos # (Auto) 0.2 (0.0-0.7) K/uL Baso # (Auto) 0.0 (0.0-0.1) K/uL Nucleated RBC % 0.0 /100WBC Nucleated RBCs # 0 K/uL Sodium 144 (136-148) mmol/L Potassium 3.8 (3.5-5.1) mmol/L Chloride 110 H (98-107) mmol/L Carbon Dioxide 19.7 L (21.0-32.0) mmol/L BUN 8 (7.0-18.0) mg/dL Creatinine 1.2 (0.8-1.3) mg/dL Est Cr Clr Drug Dosing 59.38 mL/min Estimated GFR (MDRD) > 60.0 ml/min Glucose 105 (74-106) mg/dL Calcium 8.2 L (8.5-10.1) mg/dL Total Bilirubin 0.7 (0.2-1.0) mg/dL AST 22 (15-37) IU/L ALT 21 (14-63) IU/L Alkaline Phosphatase 65 (46-116) U/L Total Protein 6.0 L (6.4-8.2) g/dL Albumin 2.3 L (3.4-5.0) g/dL Globulin 3.7 (2.6-4.0) g/dL Albumin/Globulin Ratio 0.6 L (0.9-1.6) Digoxin 2.4 H (0.9-2.0) ng/mL Result Diagrams: 09/28/21 05:44 09/28/21 05:44 Jose Results Last 24 hrs: Microbiology 09/24/21 06:35 Stool Culture - Final Stool / Feces Shiga Toxin I & II - Final 09/23/21 15:31 Aerobic Blood Culture - Preliminary Blood - Venous - Lab Draw NO GROWTH AFTER 4 DAYS Anaerobic Blood Culture - Preliminary NO GROWTH AFTER 4 DAYS 09/23/21 15:25 Aerobic Blood Culture - Preliminary Blood - Venous NO GROWTH AFTER 4 DAYS Anaerobic Blood Culture - Final Sepsis Event Note - Evaluation Sepsis Screening Result: No Definite Risk - Focused Exam Vital Signs: Vital Signs Temp Temp Pulse Pulse Resp BP BP 09/28/21 11:04 85 22 H 190/91 H 09/28/21 11:02 86 09/28/21 09:52 104 H 154/82 H 09/28/21 08:00 96.3 F L 90 20 09/28/21 04:19 96.2 F L 94 22 H 09/28/21 03:58 93 BP Pulse Ox 09/28/21 11:04 92 L 09/28/21 11:02 09/28/21 09:52 09/28/21 08:00 154/82 H 94 L 09/28/21 04:19 161/77 H 94 L 09/28/21 03:58 - Problem List & Annotations (1) Morbid obesity SNOMED Code(s): 225091916 Code(s): E66.01 - MORBID (SEVERE) OBESITY DUE TO EXCESS CALORIES Status: Acute Current Visit: Yes (2) NIKI (acute kidney injury) SNOMED Code(s): 13444172, 00783051 Code(s): N17.9 - ACUTE KIDNEY FAILURE, UNSPECIFIED Status: Acute Current Visit: Yes (3) Proctitis SNOMED Code(s): 4422507 Code(s): K62.89 - OTHER SPECIFIED DISEASES OF ANUS AND RECTUM Status: Acute Current Visit: Yes (4) Septic shock SNOMED Code(s): 69933014 Code(s): A41.9 - SEPSIS, UNSPECIFIED ORGANISM; R65.21 - SEVERE SEPSIS WITH SEPTIC SHOCK Status: Acute Current Visit: Yes (5) DNR (do not resuscitate) Status: Acute Current Visit: Yes - Problem List Review Problem List Initiated/Reviewed/Updated: Yes - My Orders Last 24 Hours: My Active Orders 09/28/21 14:00 lisinopriL [Prinivil] 10 mg PO DAILY 09/28/21 14:13 Consult to Speech Language Pathology [MACHINE [employer]OTH EXAMINER Evaluation and Treatment] [CONS] Routine 09/28/21 14:15 Metoprolol Tartrate [Lopressor] 25 mg PO ONETIME ONE 09/28/21 21:00 Metoprolol Tartrate [Lopressor] 50 mg PO BID 09/29/21 07:00 BASIC METABOLIC PANEL,BMP [CHEM] Routine DIGOXIN [CHEM] Routine - Plan Plan:: 65 yo male admitted for septic shock with likely source being colon and GI bleed Septic shock: weaned off levophed. Pt is on Vanc and Zosyn. Will DC vanc. Proctitis: continue vancomycin and Zosyn, cultures pending, Dr. Aparicio consulted and recommends scoping as outpatient GI bleed: on protonix, Hgb stable A.fib with RVR: Now rate controlled. Continue with metoprolol. Titrate dose. DC digoxin. Obesity Generalized weakness and debility PT/OT eval and treat Dysphagia ST eval and treat Parkinson's disease pt has gait instability continue with home Rx's.
[2021-09-28] MEDS: Lisinopril 10 MG Tab PO SCH (14:26)
[2021-09-28] MEDS ORDERED: Sodium Chloride 0.9% 1,000 ML IV SCH (14:30)
[2021-09-28] MEDS ORDERED: Sodium Chloride 0.65% Nasal Spray 45 ML Bottle NAS PRN (14:32)
[2021-09-28] MEDS: Metoprolol Tartrate 50 MG Tab PO SCH ×2 (19:43→20:08)
[2021-09-28] MEDS: hydrALAZINE 25 MG Tab PO SCH (20:08)
[2021-09-29] MEDS: hydrALAZINE 25 MG Tab PO SCH ×3 (03:28→20:42)
[2021-09-29] MEDS: Piperacillin/Tazobactam 3.375 GM in Sodium Chloride 0.9% 100 ML IV SCH ×4 (03:30→20:43)
[2021-09-29] MEDS ORDERED: VANCOmycin 1.5 GM/300 ML 1.5 GM in Premix Bag 1 BAG IV SCH (06:00)
[2021-09-29 07:46] LABS: BLOOD UREA NITROGEN,BUN 7 mg/dL (7.0-18.0); CARBON DIOXIDE,CO2 22.1 mmol/L (21.0-32.0); CHLORIDE,CL 112 mmol/L (98-107); GLUCOSE RANDOM 116 mg/dL (74-106); POTASSIUM,K 3.5 mmol/L (3.5-5.1); SODIUM,NA 145 mmol/L (136-148)
[2021-09-29] MEDS: Sertraline 50 MG Tab PO SCH (09:13)
[2021-09-29] MEDS: Lisinopril 10 MG Tab PO SCH (09:13)
[2021-09-29] MEDS: Pantoprazole 40 MG/10 ML Syringe IV SCH ×2 (09:13→20:42)
[2021-09-29] MEDS: Metoprolol Tartrate 50 MG Tab PO SCH ×2 (09:14→20:41)
--- NOTE | 2021-09-29 09:31 | PCM.PN ---
- General Info Date of Service: 09/29/21 Subjective Update: Pt seems to be doing better today. He says he slept better than he has done in days for the first time yesterday. His SBP is in the 170's. HR is in the 90's. - Patient Data Vitals - Most Recent: Last Vital Signs Temp 97.8 F 09/29/21 01:00 Pulse 83 09/29/21 09:14 Resp 22 H 09/29/21 01:00 BP 175/83 H 09/29/21 09:14 Pulse Ox 94 L 09/29/21 01:00 Weight - Most Recent: 222 lb 10.67 oz I&O - Last 24 Hours: Intake & Output 09/28/21 09/29/21 09/29/21 22:59 06:59 14:59 Intake Total 1060 300 Output Total 900 850 Balance 160 -550 Lab Results Last 24 Hours: Laboratory Results - last 24 hr 09/28/21 09/28/21 09/29/21 Range/Units 05:44 17:12 07:00 Sodium 145 (136-148) mmol/L Potassium 3.5 (3.5-5.1) mmol/L Chloride 112 H (98-107) mmol/L Carbon Dioxide 22.1 (21.0-32.0) mmol/L BUN 7 (7.0-18.0) mg/dL Creatinine 1.0 (0.8-1.3) mg/dL Est Cr Clr Drug Dosing 71.25 mL/min Estimated GFR (MDRD) > 60.0 ml/min Glucose 116 H (74-106) mg/dL Calcium 8.0 L (8.5-10.1) mg/dL Vancomycin Trough 25.2 H (5.0-10.0) ug/mL Digoxin 2.4 H 1.6 (0.9-2.0) ng/mL Jose Results Last 24 Hours: Microbiology 09/23/21 15:31 Aerobic Blood Culture - Final Blood - Venous - Lab Draw NO GROWTH AFTER 5 DAYS Anaerobic Blood Culture - Final NO GROWTH AFTER 5 DAYS 09/23/21 15:25 Aerobic Blood Culture - Final Blood - Venous NO GROWTH AFTER 5 DAYS Anaerobic Blood Culture - Final 09/24/21 06:35 Stool Culture - Final Stool / Feces Shiga Toxin I & II - Final Med Orders - Current: Current Medications Acetaminophen (Acetaminophen 325 Mg Tab) 650 mg PO Q6H PRN PRN Reason: Fever Last Admin: 09/26/21 18:23 Dose: 650 mg Documented by: Albuterol/Ipratropium (Albuterol/Ipratropium 3.0-0.5 Mg/3 Ml Neb Soln) 3 ml NEB Q4H PRN PRN Reason: Cough Last Admin: 09/27/21 22:28 Dose: 3 ml Documented by: Guaifenesin/Dextromethorphan (Guaifenesin/Dextromethorphan 100-10 Mg/5 Ml Soln 10 Ml Cup) 10 ml PO Q6H PRN PRN Reason: Cough Last Admin: 09/28/21 13:25 Dose: 10 ml Documented by: Hydralazine HCl (Hydralazine 25 Mg Tab) 25 mg PO Q8H [facility] Last Admin: 09/29/21 03:28 Dose: 25 mg Documented by: Norepinephrine Bitartrate (Norepinephr-0.9% Nacl 4 Mg/250) 4 mg in 250 mls @ 7.5 mls/hr IV TITRATE [facility]; Protocol Last Titration: 09/25/21 13:10 Dose: 0 mcg/min, 0 mls/hr Documented by: Piperacillin Sod/Tazobactam (Sod 3.375 gm/ Sodium Chloride) 100 mls @ 200 mls/hr IV Q6H [facility] Last Admin: 09/29/21 09:13 Dose: 200 mls/hr Documented by: Lisinopril (Lisinopril 10 Mg Tab) 10 mg PO DAILY [facility] Last Admin: 09/29/21 09:13 Dose: 10 mg Documented by: Metoprolol Tartrate (Metoprolol Tartrate 50 Mg Tab) 50 mg PO BID [facility] Last Admin: 09/29/21 09:14 Dose: 50 mg Documented by: Ondansetron HCl (Ondansetron 4 Mg/2 Ml Sdv) 4 mg IVPUSH Q6H PRN PRN Reason: Nausea/Vomiting Pantoprazole Sodium (Pantoprazole 40 Mg/10 Ml Syringe) 40 mg IV Q12H [facility] Last Admin: 09/29/21 09:13 Dose: 40 mg Documented by: Sertraline HCl (Sertraline 50 Mg Tab) 50 mg PO DAILY [facility] Last Admin: 09/29/21 09:13 Dose: 50 mg Documented by: Sodium Chloride (Sodium Chloride 0.65% Nasal [place] 45 Ml Bottle) 2 ml DUKE Q2H PRN PRN Reason: Nasal Dryness Discontinued Medications Albuterol/Ipratropium (Albuterol/Ipratropium 3.0-0.5 Mg/3 Ml Neb Soln) 3 ml NEB ONETIME ONE Stop: 09/26/21 07:29 Last Admin: 09/26/21 07:57 Dose: 3 ml Documented by: Amiodarone HCl (Amiodarone 200 Mg Tab) 200 mg PO DAILY [facility] Last Admin: 09/27/21 08:38 Dose: 200 mg Documented by: Amiodarone HCl (Amiodarone 200 Mg Tab) 400 mg PO BID [facility] Last Admin: 09/28/21 09:43 Dose: 400 mg Documented by: Digoxin (Digoxin 500 Mcg/2 Ml Amp) 250 mcg IVPUSH ONETIME ONE Stop: 09/24/21 20:35 Last Admin: 09/24/21 21:32 Dose: 250 mcg Documented by: Digoxin (Digoxin 500 Mcg/2 Ml Amp) 500 mcg IVPUSH ONETIME ONE Stop: 09/27/21 21:56 Last Admin: 09/27/21 22:03 Dose: 500 mcg Documented by: Digoxin (Digoxin 500 Mcg/2 Ml Amp) 250 mcg IVPUSH ONETIME ONE Stop: 09/28/21 04:01 Last Admin: 09/28/21 03:58 Dose: 250 mcg Documented by: Digoxin (Digoxin 250 Mcg Tab) 250 mcg PO DAILY [facility] Last Admin: 09/28/21 11:02 Dose: 250 mcg Documented by: Diltiazem HCl (Diltiazem 25 Mg/5 Ml Sdv) 20 mg IVPUSH ONETIME ONE Stop: 09/24/21 15:41 Last Admin: 09/24/21 15:50 Dose: 20 mg Documented by: Diltiazem HCl (Diltiazem 25 Mg/5 Ml Sdv) 10 mg IVPUSH ONETIME ONE Stop: 09/27/21 15:10 Last Admin: 09/27/21 15:35 Dose: 10 mg Documented by: Diltiazem HCl (Diltiazem 25 Mg/5 Ml Sdv) 20 mg IVPUSH ONETIME ONE Stop: 09/27/21 21:51 Last Admin: 09/27/21 21:51 Dose: 20 mg Documented by: Diltiazem HCl (Diltiazem 25 Mg/5 Ml Sdv) Confirm Administered Dose 25 mg .ROUTE .STK-MED ONE Stop: 09/27/21 21:47 Last Admin: 09/27/21 21:54 Dose: Not Given Documented by: Sodium Chloride (Normal Saline) 1,000 mls @ 999 mls/hr IV .Bolus ONE Stop: 09/23/21 15:38 Last Admin: 09/23/21 14:40 Dose: 999 mls/hr Documented by: Vancomycin HCl 1.5 gm/ Premix 300 mls @ 200 mls/hr IV Q24H [facility] Stop: 09/26/21 19:30 Last Admin: 09/26/21 16:04 Dose: 200 mls/hr Documented by: Sodium Chloride (Normal Saline) 1,000 mls @ 125 mls/hr IV ASDIRECTED [facility] Last Admin: 09/24/21 21:43 Dose: 125 mls/hr Documented by: Diltiazem HCl 100 mg/ Sodium (Chloride) 100 mls @ 5 mls/hr IV NOW [facility]; Protocol Last Titration: 09/24/21 21:00 Dose: 0 mg/hr, 0 mls/hr Documented by: Heparin Sodium/Sodium Chloride (Heparin 25,000 Units In 1/2 Ns 500 Ml) 500 mls @ 21.84 mls/hr IV TITRATE [facility]; Protocol Sodium Chloride (Normal Saline) 500 mls @ 999 mls/hr IV .BOLUS ONE Stop: 09/24/21 19:53 Last Admin: 09/24/21 20:35 Dose: 999 mls/hr Documented by: Amiodarone HCl/Dextrose 150 mg (/ Premix) 100 mls @ 400 mls/hr IV NOW ONE; Protocol Stop: 09/24/21 20:48 Last Admin: 09/24/21 21:33 Dose: 400 mls/hr Documented by: Amiodarone HCl/Dextrose (Nexterone In Dextrose 360 Mg/200 Ml) 360 mg in 200 mls @ 33.333 mls/hr IV ASDIRECTED [facility]; Protocol Last Admin: 09/25/21 15:23 Dose: 0.5 mg/min, 16.667 mls/hr Documented by: Amiodarone HCl/Dextrose (Nexterone In Dextrose 360 Mg/200 Ml) 360 mg in 200 mls @ 16.667 mls/hr IV ASDIRECTED [facility]; Protocol Stop: 09/26/21 22:01 Pantoprazole Sodium 40 mg/ (Premix) 10 mls @ 300 mls/hr IV Q12H [facility] Last Admin: 09/26/21 08:03 Dose: 300 mls/hr Documented by: Magnesium Sulfate 2 gm/ Premix 50 mls @ 25 mls/hr IV ONETIME ONE Stop: 09/26/21 11:44 Last Admin: 09/26/21 10:40 Dose: 25 mls/hr Documented by: Vancomycin HCl 1.5 gm/ Premix 300 mls @ 200 mls/hr IV Q12H [facility] Last Admin: 09/28/21 18:45 Dose: Not Given Documented by: Sodium Chloride (Normal Saline) 1,000 mls @ 100 mls/hr IV Q10H [facility] Last Admin: 09/28/21 18:45 Dose: Not Given Documented by: Vancomycin HCl 1.5 gm/ Premix 300 mls @ 200 mls/hr IV Q24H [facility] Metoprolol Tartrate (Metoprolol Tartrate 25 Mg Tab) 25 mg PO BID [facility] Last Admin: 09/28/21 09:52 Dose: 25 mg Documented by: Metoprolol Tartrate (Metoprolol Tartrate 25 Mg Tab) 25 mg PO ONETIME ONE Stop: 09/28/21 14:16 Last Admin: 09/28/21 14:26 Dose: 25 mg Documented by: Pantoprazole Sodium (Pantoprazole 40 Mg/10 Ml Syringe) 40 mg IVPUSH Q12HR [facility] Last Admin: 09/23/21 21:18 Dose: Not Given Documented by: Pantoprazole Sodium (Pantoprazole 40 Mg/10 Ml Syringe) 40 mg IVPUSH Q12HR [facility] Last Admin: 09/25/21 08:03 Dose: 40 mg Documented by: Potassium Chloride (Potassium Chloride 10% 20 Meq/15 Ml Soln 30 Ml Ud Cup) 40 meq PO ONETIME ONE Stop: 09/24/21 11:32 Last Admin: 09/24/21 12:02 Dose: 40 meq Documented by: Potassium Chloride (Potassium Chloride 20 Meq Tab.Er) 40 meq PO ONETIME ONE Stop: 09/26/21 09:09 Last Admin: 09/26/21 10:00 Dose: 40 meq Documented by: Potassium Chloride (Potassium Chloride 20 Meq Tab.Er) 40 meq PO ONETIME ONE Stop: 09/27/21 22:01 Last Admin: 09/27/21 22:18 Dose: 40 meq Documented by: Sodium Chloride (Sodium Chloride 0.65% Nasal [place] 45 Ml Bottle) 0 ml DUKE Q2H PRN PRN Reason: Dryness Last Admin: 09/26/21 05:35 Dose: 1 spray Documented by: Vancomycin HCl (Pharmacy To Dose - Vancomycin) 1 dose .XX ASDIRECTED [facility]EE - Exam Central Line Total Time: 3Days 23Hours Physical Findings Comments:: General: Obese middle aged male. Looks older than stated age. CVS : S1S2 appreciated. irregular rate lungs: clear bilaterally pa: soft, obese, non tender. ext: no clubbing or cyanosis. Some peripheral edema 1+ neuro: moves all extremities psych: flat affect. low mood. - Patient Data Lab Results Last 24 hrs: Laboratory Results - last 24 hr 09/28/21 09/28/21 09/29/21 Range/Units 05:44 17:12 07:00 Sodium 145 (136-148) mmol/L Potassium 3.5 (3.5-5.1) mmol/L Chloride 112 H (98-107) mmol/L Carbon Dioxide 22.1 (21.0-32.0) mmol/L BUN 7 (7.0-18.0) mg/dL Creatinine 1.0 (0.8-1.3) mg/dL Est Cr Clr Drug Dosing 71.25 mL/min Estimated GFR (MDRD) > 60.0 ml/min Glucose 116 H (74-106) mg/dL Calcium 8.0 L (8.5-10.1) mg/dL Vancomycin Trough 25.2 H (5.0-10.0) ug/mL Digoxin 2.4 H 1.6 (0.9-2.0) ng/mL Result Diagrams: 09/28/21 05:44 09/29/21 07:00 Jose Results Last 24 hrs: Microbiology 09/23/21 15:31 Aerobic Blood Culture - Final Blood - Venous - Lab Draw NO GROWTH AFTER 5 DAYS Anaerobic Blood Culture - Final NO GROWTH AFTER 5 DAYS 09/23/21 15:25 Aerobic Blood Culture - Final Blood - Venous NO GROWTH AFTER 5 DAYS Anaerobic Blood Culture - Final 09/24/21 06:35 Stool Culture - Final Stool / Feces Shiga Toxin I & II - Final Sepsis Event Note - Evaluation Sepsis Screening Result: No Definite Risk - Focused Exam Vital Signs: Vital Signs Temp Pulse Pulse Resp BP BP Pulse Ox 09/29/21 09:14 83 175/83 H 09/29/21 09:13 175/83 H 09/29/21 03:28 171/76 H 09/29/21 01:00 97.8 F 78 22 H 175/84 H 94 L - Problem List & Annotations (1) Morbid obesity SNOMED Code(s): 329487807 Code(s): E66.01 - MORBID (SEVERE) OBESITY DUE TO EXCESS CALORIES Status: Acute Current Visit: Yes (2) NIKI (acute kidney injury) SNOMED Code(s): 58491436, 14951095 Code(s): N17.9 - ACUTE KIDNEY FAILURE, UNSPECIFIED Status: Acute Current Visit: Yes (3) Proctitis SNOMED Code(s): 0593015 Code(s): K62.89 - OTHER SPECIFIED DISEASES OF ANUS AND RECTUM Status: Acute Current Visit: Yes (4) Septic shock SNOMED Code(s): 69252095 Code(s): A41.9 - SEPSIS, UNSPECIFIED ORGANISM; R65.21 - SEVERE SEPSIS WITH SEPTIC SHOCK Status: Acute Current Visit: Yes (5) DNR (do not resuscitate) Status: Acute Current Visit: Yes - Problem List Review Problem List Initiated/Reviewed/Updated: Yes - My Orders Last 24 Hours: My Active Orders 09/28/21 14:00 lisinopriL [Prinivil] 10 mg PO DAILY 09/28/21 14:13 Consult to Speech Language Pathology [[employer] Evaluation and Treatment] [CONS] Routine 09/28/21 14:32 Sodium Chloride 0.65% [[place] Nasal [place]] 2 ml DUKE Q2H PRN 09/28/21 15:22 RT Suction Nasopharyngeal [RESPCARE] Routine 09/28/21 Dinner Regular Diet [DIET] 09/28/21 20:00 hydrALAZINE [Apresoline] 25 mg PO Q8H 09/28/21 21:00 Metoprolol Tartrate [Lopressor] 50 mg PO BID 09/30/21 05:11 BASIC METABOLIC PANEL,BMP [CHEM] AM - Plan Plan:: 65 yo male admitted for septic shock with likely source being colon and GI bleed Septic shock: weaned off levophed. Pt is on Vanc and Zosyn. Will DC vanc. Proctitis: continue vancomycin and Zosyn, cultures pending, Dr. Aparicio consulted and recommends scoping as outpatient GI bleed: on protonix, Hgb stable A.fib. Now rate controlled. Increase metoprolol dose. HTN Titrate BP meds. Obesity Generalized weakness and debility PT/OT eval and treat Dysphagia ST eval and treat Parkinson's disease pt has gait instability continue with home Rx's. Peripheral edema will give 1 dose of IV lasix.
[2021-09-29] MEDS ORDERED: Furosemide 40 MG/4 ML VIAL IVPUSH ONE (10:27)
[2021-09-29] MEDS ORDERED: Metoprolol Tartrate 50 MG Tab PO SCH ×2 (10:30→10:45)
[2021-09-29] MEDS: Acetaminophen 325 MG Tab PO PRN (11:35)
[2021-09-29] MEDS ORDERED: Metoprolol Tartrate 50 MG Tab PO ONE (11:45)
[2021-09-29] MEDS: Gabapentin 300 MG Cap PO SCH (20:41)
[2021-09-30] MEDS: Piperacillin/Tazobactam 3.375 GM in Sodium Chloride 0.9% 100 ML IV SCH ×4 (04:49→20:02)
[2021-09-30] MEDS: hydrALAZINE 25 MG Tab PO SCH ×3 (04:50→20:03)
[2021-09-30 06:45] LABS: BLOOD UREA NITROGEN,BUN 5 mg/dL (7.0-18.0); CARBON DIOXIDE,CO2 27.4 mmol/L (21.0-32.0); CHLORIDE,CL 107 mmol/L (98-107); GLUCOSE RANDOM 115 mg/dL (74-106); POTASSIUM,K 2.9 mmol/L (3.5-5.1); SODIUM,NA 145 mmol/L (136-148)
[2021-09-30] MEDS: Pantoprazole 40 MG/10 ML Syringe IV SCH ×2 (08:50→20:07)
[2021-09-30] MEDS: Metoprolol Tartrate 50 MG Tab PO SCH ×2 (08:53→20:03)
[2021-09-30] MEDS: Gabapentin 300 MG Cap PO SCH ×3 (08:53→20:04)
[2021-09-30] MEDS: Lisinopril 10 MG Tab PO SCH (08:54)
[2021-09-30] MEDS: Sertraline 50 MG Tab PO SCH (08:54)
[2021-09-30] MEDS ORDERED: Potassium Chloride 10% 20 MEQ/15 ML Soln 30 ML UD Cup PO ONE (09:22)
[2021-09-30] MEDS: Acetaminophen 325 MG Tab PO PRN (10:44)
--- NOTE | 2021-09-30 11:10 | PCM.PN ---
- General Info Date of Service: 09/30/21 - Patient Data Vitals - Most Recent: Last Vital Signs Temp 97.3 F 09/30/21 07:53 Pulse 72 09/30/21 08:53 Resp 18 09/30/21 07:53 BP 152/66 H 09/30/21 08:54 Pulse Ox 95 09/30/21 07:53 Weight - Most Recent: 218 lb 4.122 oz I&O - Last 24 Hours: Intake & Output 09/29/21 09/30/21 09/30/21 22:59 06:59 14:59 Intake Total 640 1200 Output Total 2950 1600 Balance -2310 -400 Lab Results Last 24 Hours: Laboratory Results - last 24 hr 09/30/21 09/30/21 Range/Units 05:42 05:42 Sodium 145 (136-148) mmol/L Potassium 2.9 L (3.5-5.1) mmol/L Chloride 107 (98-107) mmol/L Carbon Dioxide 27.4 (21.0-32.0) mmol/L BUN 5 L (7.0-18.0) mg/dL Creatinine 1.2 (0.8-1.3) mg/dL Est Cr Clr Drug Dosing 59.38 mL/min Estimated GFR (MDRD) > 60.0 ml/min Glucose 115 H (74-106) mg/dL Calcium 8.4 L (8.5-10.1) mg/dL Vancomycin Trough 7.2 (5.0-10.0) ug/mL Med Orders - Current: Current Medications Acetaminophen (Acetaminophen 325 Mg Tab) 650 mg PO Q6H PRN PRN Reason: Fever Last Admin: 09/29/21 11:35 Dose: 650 mg Documented by: Albuterol/Ipratropium (Albuterol/Ipratropium 3.0-0.5 Mg/3 Ml Neb Soln) 3 ml NEB Q4H PRN PRN Reason: Cough Last Admin: 09/27/21 22:28 Dose: 3 ml Documented by: Gabapentin (Gabapentin 300 Mg Cap) 300 mg PO BID [facility] Last Admin: 09/30/21 09:01 Dose: Not Given Documented by: Guaifenesin/Dextromethorphan (Guaifenesin/Dextromethorphan 100-10 Mg/5 Ml Soln 10 Ml Cup) 10 ml PO Q6H PRN PRN Reason: Cough Last Admin: 09/28/21 13:25 Dose: 10 ml Documented by: Hydralazine HCl (Hydralazine 25 Mg Tab) 25 mg PO Q8H [facility] Last Admin: 09/30/21 04:50 Dose: 25 mg Documented by: Norepinephrine Bitartrate (Norepinephr-0.9% Nacl 4 Mg/250) 4 mg in 250 mls @ 7.5 mls/hr IV TITRATE [facility]; Protocol Last Titration: 09/25/21 13:10 Dose: 0 mcg/min, 0 mls/hr Documented by: Piperacillin Sod/Tazobactam (Sod 3.375 gm/ Sodium Chloride) 100 mls @ 200 mls/hr IV Q6H [facility] Last Admin: 09/30/21 08:52 Dose: 200 mls/hr Documented by: Lisinopril (Lisinopril 10 Mg Tab) 20 mg PO DAILY [facility] Metoprolol Tartrate (Metoprolol Tartrate 50 Mg Tab) 100 mg PO Q12H [facility] Last Admin: 09/30/21 08:53 Dose: 100 mg Documented by: Ondansetron HCl (Ondansetron 4 Mg/2 Ml Sdv) 4 mg IVPUSH Q6H PRN PRN Reason: Nausea/Vomiting Pantoprazole Sodium (Pantoprazole 40 Mg/10 Ml Syringe) 40 mg IV Q12H [facility] Last Admin: 09/30/21 08:50 Dose: 40 mg Documented by: Sertraline HCl (Sertraline 50 Mg Tab) 50 mg PO DAILY [facility] Last Admin: 09/30/21 08:54 Dose: 50 mg Documented by: Sodium Chloride (Sodium Chloride 0.65% Nasal [place] 45 Ml Bottle) 2 ml DUKE Q2H P RN PRN Reason: Nasal Dryness Discontinued Medications Albuterol/Ipratropium (Albuterol/Ipratropium 3.0-0.5 Mg/3 Ml Neb Soln) 3 ml NEB ONETIME ONE Stop: 09/26/21 07:29 Last Admin: 09/26/21 07:57 Dose: 3 ml Documented by: Amiodarone HCl (Amiodarone 200 Mg Tab) 200 mg PO DAILY [facility] Last Admin: 09/27/21 08:38 Dose: 200 mg Documented by: Amiodarone HCl (Amiodarone 200 Mg Tab) 400 mg PO BID [facility] Last Admin: 09/28/21 09:43 Dose: 400 mg Documented by: Digoxin (Digoxin 500 Mcg/2 Ml Amp) 250 mcg IVPUSH ONETIME ONE Stop: 09/24/21 20:35 Last Admin: 09/24/21 21:32 Dose: 250 mcg Documented by: Digoxin (Digoxin 500 Mcg/2 Ml Amp) 500 mcg IVPUSH ONETIME ONE Stop: 09/27/21 21:56 Last Admin: 09/27/21 22:03 Dose: 500 mcg Documented by: Digoxin (Digoxin 500 Mcg/2 Ml Amp) 250 mcg IVPUSH ONETIME ONE Stop: 09/28/21 04:01 Last Admin: 09/28/21 03:58 Dose: 250 mcg Documented by: Digoxin (Digoxin 250 Mcg Tab) 250 mcg PO DAILY [facility] Last Admin: 09/28/21 11:02 Dose: 250 mcg Documented by: Diltiazem HCl (Diltiazem 25 Mg/5 Ml Sdv) 20 mg IVPUSH ONETIME ONE Stop: 09/24/21 15:41 Last Admin: 09/24/21 15:50 Dose: 20 mg Documented by: Diltiazem HCl (Diltiazem 25 Mg/5 Ml Sdv) 10 mg IVPUSH ONETIME ONE Stop: 09/27/21 15:10 Last Admin: 09/27/21 15:35 Dose: 10 mg Documented by: Diltiazem HCl (Diltiazem 25 Mg/5 Ml Sdv) 20 mg IVPUSH ONETIME ONE Stop: 09/27/21 21:51 Last Admin: 09/27/21 21:51 Dose: 20 mg Documented by: Diltiazem HCl (Diltiazem 25 Mg/5 Ml Sdv) Confirm Administered Dose 25 mg .ROUTE .STK-MED ONE Stop: 09/27/21 21:47 Last Admin: 09/27/21 21:54 Dose: Not Given Documented by: Furosemide (Furosemide 40 Mg/4 Ml Vial) 40 mg IVPUSH NOW ONE Stop: 09/29/21 10:28 Last Admin: 09/29/21 11:31 Dose: 40 mg Documented by: Sodium Chloride (Normal Saline) 1,000 mls @ 999 mls/hr IV .Bolus ONE Stop: 09/23/21 15:38 Last Admin: 09/23/21 14:40 Dose: 999 mls/hr Documented by: Vancomycin HCl 1.5 gm/ Premix 300 mls @ 200 mls/hr IV Q24H [facility] Stop: 09/26/21 19:30 Last Admin: 09/26/21 16:04 Dose: 200 mls/hr Documented by: Sodium Chloride (Normal Saline) 1,000 mls @ 125 mls/hr IV ASDIRECTED [facility] Last Admin: 09/24/21 21:43 Dose: 125 mls/hr Documented by: Diltiazem HCl 100 mg/ Sodium (Chloride) 100 mls @ 5 mls/hr IV NOW [facility]; Protocol Last Titration: 09/24/21 21:00 Dose: 0 mg/hr, 0 mls/hr Documented by: Heparin Sodium/Sodium Chloride (Heparin 25,000 Units In 1/2 Ns 500 Ml) 500 mls @ 21.84 mls/hr IV TITRATE [facility]; Protocol Sodium Chloride (Normal Saline) 500 mls @ 999 mls/hr IV .BOLUS ONE Stop: 09/24/21 19:53 Last Admin: 09/24/21 20:35 Dose: 999 mls/hr Documented by: Amiodarone HCl/Dextrose 150 mg (/ Premix) 100 mls @ 400 mls/hr IV NOW ONE; Protocol Stop: 09/24/21 20:48 Last Admin: 09/24/21 21:33 Dose: 400 mls/hr Documented by: Amiodarone HCl/Dextrose (Nexterone In Dextrose 360 Mg/200 Ml) 360 mg in 200 mls @ 33.333 mls/hr IV ASDIRECTED [facility]; Protocol Last Admin: 09/25/21 15:23 Dose: 0.5 mg/min, 16.667 mls/hr Documented by: Amiodarone HCl/Dextrose (Nexterone In Dextrose 360 Mg/200 Ml) 360 mg in 200 mls @ 16.667 mls/hr IV ASDIRECTED [facility]; Protocol Stop: 09/26/21 22:01 Pantoprazole Sodium 40 mg/ (Premix) 10 mls @ 300 mls/hr IV Q12H [facility] Last Admin: 09/26/21 08:03 Dose: 300 mls/hr Documented by: Magnesium Sulfate 2 gm/ Premix 50 mls @ 25 mls/hr IV ONETIME ONE Stop: 09/26/21 11:44 Last Admin: 09/26/21 10:40 Dose: 25 mls/hr Documented by: Vancomycin HCl 1.5 gm/ Premix 300 mls @ 200 mls/hr IV Q12H [facility] Last Admin: 09/28/21 18:45 Dose: Not Given Documented by: Sodium Chloride (Normal Saline) 1,000 mls @ 100 mls/hr IV Q10H [facility] Last Admin: 09/28/21 18:45 Dose: Not Given Documented by: Vancomycin HCl 1.5 gm/ Premix 300 mls @ 200 mls/hr IV Q24H [facility] Lisinopril (Lisinopril 10 Mg Tab) 10 mg PO DAILY [facility] Last Admin: 09/30/21 08:54 Dose: 10 mg Documented by: Metoprolol Tartrate (Metoprolol Tartrate 25 Mg Tab) 25 mg PO BID [facility] Last Admin: 09/28/21 09:52 Dose: 25 mg Documented by: Metoprolol Tartrate (Metoprolol Tartrate 50 Mg Tab) 50 mg PO BID [facility] Last Admin: 09/29/21 09:14 Dose: 50 mg Documented by: Metoprolol Tartrate (Metoprolol Tartrate 25 Mg Tab) 25 mg PO ONETIME ONE Stop: 09/28/21 14:16 Last Admin: 09/28/21 14:26 Dose: 25 mg Documented by: Metoprolol Tartrate (Metoprolol Tartrate 50 Mg Tab) 50 mg PO Q12H [facility] Last Admin: 09/29/21 10:52 Dose: Not Given Documented by: Metoprolol Tartrate (Metoprolol Tartrate 50 Mg Tab) 50 mg PO ONETIME ONE Stop: 09/29/21 11:46 Last Admin: 09/29/21 11:35 Dose: 50 mg Documented by: Pantoprazole Sodium (Pantoprazole 40 Mg/10 Ml Syringe) 40 mg IVPUSH Q12HR [facility] Last Admin: 09/23/21 21:18 Dose: Not Given Documented by: Pantoprazole Sodium (Pantoprazole 40 Mg/10 Ml Syringe) 40 mg IVPUSH Q12HR [facility] Last Admin: 09/25/21 08:03 Dose: 40 mg Documented by: Potassium Chloride (Potassium Chloride 10% 20 Meq/15 Ml Soln 30 Ml Ud Cup) 40 meq PO ONETIME ONE Stop: 09/24/21 11:32 Last Admin: 09/24/21 12:02 Dose: 40 meq Documented by: Potassium Chloride (Potassium Chloride 20 Meq Tab.Er) 40 meq PO ONETIME ONE Stop: 09/26/21 09:09 Last Admin: 09/26/21 10:00 Dose: 40 meq Documented by: Potassium Chloride (Potassium Chloride 20 Meq Tab.Er) 40 meq PO ONETIME ONE Stop: 09/27/21 22:01 Last Admin: 09/27/21 22:18 Dose: 40 meq Documented by: Potassium Chloride (Potassium Chloride 10% 20 Meq/15 Ml Soln 30 Ml Ud Cup) 40 meq PO ONETIME ONE Stop: 09/30/21 09:23 Sodium Chloride (Sodium Chloride 0.65% Nasal [place] 45 Ml Bottle) 0 ml [facility]KE Q2H PRN PRN Reason: Dryness Last Admin: 09/26/21 05:35 Dose: 1 spray Documented by: Vancomycin HCl (Pharmacy To Dose - Vancomycin) 1 dose .XX ASDIRECTED [facility]EE - Exam Central Line Total Time: 3Days 23Hours Physical Findings Comments:: General: Obese middle aged male in no distress. Looks older than stated age. Pt has been in sinus rhythm for the past 36-48 hrs. SBP is much better today. CVS : S1S2 appreciated. regular rate and rhythm. lungs: clear bilaterally, no rales or wheezes. pa: soft, obese, non tender. ext: no clubbing or cyanosis. Some peripheral edema 1+ neuro: moves all extremities psych: flat affect. low mood. - Patient Data Lab Results Last 24 hrs: Laboratory Results - last 24 hr 09/30/21 09/30/21 Range/Units 05:42 05:42 Sodium 145 (136-148) mmol/L Potassium 2.9 L (3.5-5.1) mmol/L Chloride 107 (98-107) mmol/L Carbon Dioxide 27.4 (21.0-32.0) mmol/L BUN 5 L (7.0-18.0) mg/dL Creatinine 1.2 (0.8-1.3) mg/dL Est Cr Clr Drug Dosing 59.38 mL/min Estimated GFR (MDRD) > 60.0 ml/min Glucose 115 H (74-106) mg/dL Calcium 8.4 L (8.5-10.1) mg/dL Vancomycin Trough 7.2 (5.0-10.0) ug/mL Result Diagrams: 09/28/21 05:44 09/30/21 05:42 Sepsis Event Note - Evaluation Sepsis Screening Result: No Definite Risk - Focused Exam Vital Signs: Vital Signs Temp Pulse Pulse Pulse Resp BP BP 09/30/21 08:54 152/66 H 09/30/21 08:53 72 152/66 H 09/30/21 07:53 97.3 F 72 18 152/66 H 09/30/21 04:50 142/86 H 09/30/21 03:45 97.2 F 73 17 143/68 H 09/29/21 23:40 73 22 H 146/67 H Pulse Ox 09/30/21 08:54 09/30/21 08:53 09/30/21 07:53 95 09/30/21 04:50 09/30/21 03:45 96 09/29/21 23:40 - Problem List & Annotations (1) Morbid obesity SNOMED Code(s): 810767365 Code(s): E66.01 - MORBID (SEVERE) OBESITY DUE TO EXCESS CALORIES Status: Acute Current Visit: Yes (2) NIKI (acute kidney injury) SNOMED Code(s): 62076373, 53979648 Code(s): N17.9 - ACUTE KIDNEY FAILURE, UNSPECIFIED Status: Acute Current Visit: Yes (3) Proctitis SNOMED Code(s): 4802096 Code(s): K62.89 - OTHER SPECIFIED DISEASES OF ANUS AND RECTUM Status: Acute Current Visit: Yes (4) Septic shock SNOMED Code(s): 68631665 Code(s): A41.9 - SEPSIS, UNSPECIFIED ORGANISM; R65.21 - SEVERE SEPSIS WITH SEPTIC SHOCK Status: Acute Current Visit: Yes (5) DNR (do not resuscitate) Status: Acute Current Visit: Yes - Problem List Review Problem List Initiated/Reviewed/Updated: Yes - My Orders Last 24 Hours: My Active Orders 09/29/21 21:00 Gabapentin [Neurontin] 300 mg PO BID Metoprolol Tartrate [Lopressor] 100 mg PO Q12H 09/30/21 11:00 lisinopriL [Prinivil] 20 mg PO DAILY 10/01/21 05:11 BASIC METABOLIC PANEL,BMP [CHEM] AM - Plan Plan:: 65 yo male admitted for septic shock etiology unclear. Could be due to a GI source. Septic shock: weaned off levophed. Pt is on Vanc and Zosyn. Will DC vanc. Proctitis: continue Zosyn to completed a 10 day course of Abx. GI bleed: Hb stable. on protonix. PAF- currently in NSR. On metoprolol. HTN Titrate BP meds. Will increase lisinopril dose Hypokalemia Replace K. Obesity Generalized weakness and debility PT/OT eval and treat Dysphagia ST eval and treat Parkinson's disease pt has gait instability continue with home Rx's.
[2021-09-30] MEDS ORDERED: Lisinopril 10 MG Tab PO ONE (11:30)
[2021-10-01] MEDS: Piperacillin/Tazobactam 3.375 GM in Sodium Chloride 0.9% 100 ML IV SCH ×4 (03:24→20:38)
[2021-10-01] MEDS: hydrALAZINE 25 MG Tab PO SCH ×3 (03:25→20:38)
[2021-10-01 08:00] LABS: BLOOD UREA NITROGEN,BUN 5 mg/dL (7.0-18.0); CARBON DIOXIDE,CO2 29.6 mmol/L (21.0-32.0); CHLORIDE,CL 109 mmol/L (98-107); GLUCOSE RANDOM 135 mg/dL (74-106); POTASSIUM,K 2.9 mmol/L (3.5-5.1); SODIUM,NA 147 mmol/L (136-148)
[2021-10-01] MEDS: Sertraline 50 MG Tab PO SCH (08:18)
[2021-10-01] MEDS: Metoprolol Tartrate 50 MG Tab PO SCH ×2 (08:18→20:38)
[2021-10-01] MEDS: Gabapentin 300 MG Cap PO SCH ×2 (08:18→20:38)
[2021-10-01] MEDS: Lisinopril 10 MG Tab PO SCH (08:18)
[2021-10-01] MEDS: Pantoprazole 40 MG/10 ML Syringe IV SCH ×2 (08:20→20:39)
[2021-10-01] MEDS ORDERED: Potassium Chloride 10% 20 MEQ/15 ML Soln 30 ML UD Cup PO SCH (13:15)
--- NOTE | 2021-10-01 13:18 | PCM.PN ---
- General Info Date of Service: 10/01/21 Subjective Update: Pt was seen by PT this morning and gotten out of bed to a chair. He looks a little more energetic today and feels better too. He has been in sinus rhythm for two days. - Patient Data Vitals - Most Recent: Last Vital Signs Temp 97.9 F 10/01/21 08:00 Pulse 67 10/01/21 08:18 Resp 17 10/01/21 08:00 BP 160/74 H 10/01/21 11:55 Pulse Ox 95 10/01/21 08:00 Weight - Most Recent: 219 lb 5.759 oz I&O - Last 24 Hours: Intake & Output 09/30/21 10/01/21 10/01/21 22:59 06:59 14:59 Intake Total 540 800 Output Total 550 800 Balance -10 0 Lab Results Last 24 Hours: Laboratory Results - last 24 hr 10/01/21 Range/Units 06:19 Sodium 147 (136-148) mmol/L Potassium 2.9 L (3.5-5.1) mmol/L Chloride 109 H (98-107) mmol/L Carbon Dioxide 29.6 (21.0-32.0) mmol/L BUN 5 L (7.0-18.0) mg/dL Creatinine 1.1 (0.8-1.3) mg/dL Est Cr Clr Drug Dosing 64.77 mL/min Estimated GFR (MDRD) > 60.0 ml/min Glucose 135 H (74-106) mg/dL Calcium 8.0 L (8.5-10.1) mg/dL Med Orders - Current: Current Medications Acetaminophen (Acetaminophen 325 Mg Tab) 650 mg PO Q6H PRN PRN Reason: Fever Last Admin: 09/30/21 10:44 Dose: 650 mg Documented by: Albuterol/Ipratropium (Albuterol/Ipratropium 3.0-0.5 Mg/3 Ml Neb Soln) 3 ml NEB Q4H PRN PRN Reason: Cough Last Admin: 09/27/21 22:28 Dose: 3 ml Documented by: Enoxaparin Sodium (Enoxaparin 40 Mg/0.4 Ml Syringe) 40 mg SUBCUT DAILY VEE Gabapentin (Gabapentin 300 Mg Cap) 300 mg PO BID VEE Last Admin: 10/01/21 08:18 Dose: 300 mg Documented by: Guaifenesin/Dextromethorphan (Guaifenesin/Dextromethorphan 100-10 Mg/5 Ml Soln 10 Ml Cup) 10 ml PO Q6H PRN PRN Reason: Cough Last Admin: 09/28/21 13:25 Dose: 10 ml Documented by: Hydralazine HCl (Hydralazine 25 Mg Tab) 25 mg PO Q8H [facility] Last Admin: 10/01/21 11:55 Dose: 25 mg Documented by: Norepinephrine Bitartrate (Norepinephr-0.9% Nacl 4 Mg/250) 4 mg in 250 mls @ 7.5 mls/hr IV TITRATE [facility]; Protocol Last Titration: 09/25/21 13:10 Dose: 0 mcg/min, 0 mls/hr Documented by: Piperacillin Sod/Tazobactam (Sod 3.375 gm/ Sodium Chloride) 100 mls @ 200 mls/hr IV Q6H [facility] Last Admin: 10/01/21 08:18 Dose: 200 mls/hr Documented by: Lisinopril (Lisinopril 10 Mg Tab) 20 mg PO DAILY [facility] Last Admin: 10/01/21 08:18 Dose: 20 mg Documented by: Metoprolol Tartrate (Metoprolol Tartrate 50 Mg Tab) 100 mg PO Q12H [facility] Last Admin: 10/01/21 08:18 Dose: 100 mg Documented by: Ondansetron HCl (Ondansetron 4 Mg/2 Ml Sdv) 4 mg IVPUSH Q6H PRN PRN Reason: Nausea/Vomiting Pantoprazole Sodium (Pantoprazole 40 Mg/10 Ml Syringe) 40 mg IV Q12H [facility] Last Admin: 10/01/21 08:20 Dose: 40 mg Documented by: Potassium Chloride (Potassium Chloride 10% 20 Meq/15 Ml Soln 30 Ml Ud Cup) 40 meq PO DAILY [facility] Sertraline HCl (Sertraline 50 Mg Tab) 50 mg PO DAILY [facility] Last Admin: 10/01/21 08:18 Dose: 50 mg Documented by: Sodium Chloride (Sodium Chloride 0.65% Nasal [place] 45 Ml Bottle) 2 ml DUKE Q2H PRN PRN Reason: Nasal Dryness Discontinued Medications Albuterol/Ipratropium (Albuterol/Ipratropium 3.0-0.5 Mg/3 Ml Neb Soln) 3 ml NEB ONETIME ONE Stop: 09/26/21 07:29 Last Admin: 09/26/21 07:57 Dose: 3 ml Documented by: Amiodarone HCl (Amiodarone 200 Mg Tab) 200 mg PO DAILY [facility] Last Admin: 09/27/21 08:38 Dose: 200 mg Documented by: Amiodarone HCl (Amiodarone 200 Mg Tab) 400 mg PO BID [facility] Last Admin: 09/28/21 09:43 Dose: 400 mg Documented by: Digoxin (Digoxin 500 Mcg/2 Ml Amp) 250 mcg IVPUSH ONETIME ONE Stop: 09/24/21 20:35 Last Admin: 09/24/21 21:32 Dose: 250 mcg Documented by: Digoxin (Digoxin 500 Mcg/2 Ml Amp) 500 mcg IVPUSH ONETIME ONE Stop: 09/27/21 21:56 Last Admin: 09/27/21 22:03 Dose: 500 mcg Documented by: Digoxin (Digoxin 500 Mcg/2 Ml Amp) 250 mcg IVPUSH ONETIME ONE Stop: 09/28/21 04:01 Last Admin: 09/28/21 03:58 Dose: 250 mcg Documented by: Digoxin (Digoxin 250 Mcg Tab) 250 mcg PO DAILY [facility] Last Admin: 09/28/21 11:02 Dose: 250 mcg Documented by: Diltiazem HCl (Diltiazem 25 Mg/5 Ml Sdv) 20 mg IVPUSH ONETIME ONE Stop: 09/24/21 15:41 Last Admin: 09/24/21 15:50 Dose: 20 mg Documented by: Diltiazem HCl (Diltiazem 25 Mg/5 Ml Sdv) 10 mg IVPUSH ONETIME ONE Stop: 09/27/21 15:10 Last Admin: 09/27/21 15:35 Dose: 10 mg Documented by: Diltiazem HCl (Diltiazem 25 Mg/5 Ml Sdv) 20 mg IVPUSH ONETIME ONE Stop: 09/27/21 21:51 Last Admin: 09/27/21 21:51 Dose: 20 mg Documented by: Diltiazem HCl (Diltiazem 25 Mg/5 Ml Sdv) Confirm Administered Dose 25 mg .ROUTE .STK-MED ONE Stop: 09/27/21 21:47 Last Admin: 09/27/21 21:54 Dose: Not Given Documented by: Furosemide (Furosemide 40 Mg/4 Ml Vial) 40 mg IVPUSH NOW ONE Stop: 09/29/21 10:28 Last Admin: 09/29/21 11:31 Dose: 40 mg Documented by: Sodium Chloride (Normal Saline) 1,000 mls @ 999 mls/hr IV .Bolus ONE Stop: 09/23/21 15:38 Last Admin: 09/23/21 14:40 Dose: 999 mls/hr Documented by: Vancomycin HCl 1.5 gm/ Premix 300 mls @ 200 mls/hr IV Q24H VEE Stop: 09/26/21 19:30 Last Admin: 09/26/21 16:04 Dose: 200 mls/hr Documented by: Sodium Chloride (Normal Saline) 1,000 mls @ 125 mls/hr IV ASDIRECTED VEE Last Admin: 09/24/21 21:43 Dose: 125 mls/hr Documented by: Diltiazem HCl 100 mg/ Sodium (Chloride) 100 mls @ 5 mls/hr IV NOW VEE; Protocol Last Titration: 09/24/21 21:00 Dose: 0 mg/hr, 0 mls/hr Documented by: Heparin Sodium/Sodium Chloride (Heparin 25,000 Units In 1/2 Ns 500 Ml) 500 mls @ 21.84 mls/hr IV TITRATE VEE; Protocol Sodium Chloride (Normal Saline) 500 mls @ 999 mls/hr IV .BOLUS ONE Stop: 09/24/21 19:53 Last Admin: 09/24/21 20:35 Dose: 999 mls/hr Documented by: Amiodarone HCl/Dextrose 150 mg (/ Premix) 100 mls @ 400 mls/hr IV NOW ONE; Protocol Stop: 09/24/21 20:48 Last Admin: 09/24/21 21:33 Dose: 400 mls/hr Documented by: Amiodarone HCl/Dextrose (Nexterone In Dextrose 360 Mg/200 Ml) 360 mg in 200 mls @ 33.333 mls/hr IV ASDIRECTED VEE; Protocol Last Admin: 09/25/21 15:23 Dose: 0.5 mg/min, 16.667 mls/hr Documented by: Amiodarone HCl/Dextrose (Nexterone In Dextrose 360 Mg/200 Ml) 360 mg in 200 mls @ 16.667 mls/hr IV ASDIRECTED VEE; Protocol Stop: 09/26/21 22:01 Pantoprazole Sodium 40 mg/ (Premix) 10 mls @ 300 mls/hr IV Q12H [facility] Last Admin: 09/26/21 08:03 Dose: 300 mls/hr Documented by: Magnesium Sulfate 2 gm/ Premix 50 mls @ 25 mls/hr IV ONETIME ONE Stop: 09/26/21 11:44 Last Admin: 09/26/21 10:40 Dose: 25 mls/hr Documented by: Vancomycin HCl 1.5 gm/ Premix 300 mls @ 200 mls/hr IV Q12H [facility] Last Admin: 09/28/21 18:45 Dose: Not Given Documented by: Sodium Chloride (Normal Saline) 1,000 mls @ 100 mls/hr IV Q10H [facility] Last Admin: 09/28/21 18:45 Dose: Not Given Documented by: Vancomycin HCl 1.5 gm/ Premix 300 mls @ 200 mls/hr IV Q24H [facility] Lisinopril (Lisinopril 10 Mg Tab) 10 mg PO DAILY [facility] Last Admin: 09/30/21 08:54 Dose: 10 mg Documented by: Lisinopril (Lisinopril 10 Mg Tab) 10 mg PO ONETIME ONE Stop: 09/30/21 11:31 Last Admin: 09/30/21 12:00 Dose: 10 mg Documented by: Metoprolol Tartrate (Metoprolol Tartrate 25 Mg Tab) 25 mg PO BID [facility] Last Admin: 09/28/21 09:52 Dose: 25 mg Documented by: Metoprolol Tartrate (Metoprolol Tartrate 50 Mg Tab) 50 mg PO BID [facility] Last Admin: 09/29/21 09:14 Dose: 50 mg Documented by: Metoprolol Tartrate (Metoprolol Tartrate 25 Mg Tab) 25 mg PO ONETIME ONE Stop: 09/28/21 14:16 Last Admin: 09/28/21 14:26 Dose: 25 mg Documented by: Metoprolol Tartrate (Metoprolol Tartrate 50 Mg Tab) 50 mg PO Q12H [facility] Last Admin: 09/29/21 10:52 Dose: Not Given Documented by: Metoprolol Tartrate (Metoprolol Tartrate 50 Mg Tab) 50 mg PO ONETIME ONE Stop: 09/29/21 11:46 Last Admin: 11/25/21 11:35 Dose: 50 mg Documented by: Pantoprazole Sodium (Pantoprazole 40 Mg/10 Ml Syringe) 40 mg IVPUSH Q12HR [facility] Last Admin: 09/23/21 21:18 Dose: Not Given Documented by: Pantoprazole Sodium (Pantoprazole 40 Mg/10 Ml Syringe) 40 mg IVPUSH Q12HR [facility] Last Admin: 09/25/21 08:03 Dose: 40 mg Documented by: Potassium Chloride (Potassium Chloride 10% 20 Meq/15 Ml Soln 30 Ml Ud Cup) 40 meq PO ONETIME ONE Stop: 09/24/21 11:32 Last Admin: 09/24/21 12:02 Dose: 40 meq Documented by: Potassium Chloride (Potassium Chloride 20 Meq Tab.Er) 40 meq PO ONETIME ONE Stop: 09/26/21 09:09 Last Admin: 09/26/21 10:00 Dose: 40 meq Documented by: Potassium Chloride (Potassium Chloride 20 Meq Tab.Er) 40 meq PO ONETIME ONE Stop: 09/27/21 22:01 Last Admin: 09/27/21 22:18 Dose: 40 meq Documented by: Potassium Chloride (Potassium Chloride 10% 20 Meq/15 Ml Soln 30 Ml Ud Cup) 40 meq PO ONETIME ONE Stop: 09/30/21 09:23 Last Admin: 09/30/21 10:44 Dose: 40 meq Documented by: Sodium Chloride (Sodium Chloride 0.65% Nasal [place] 45 Ml Bottle) 0 ml [place] Q2H PRN PRN Reason: Dryness Last Admin: 09/26/21 05:35 Dose: 1 spray Documented by: Vancomycin HCl (Pharmacy To Dose - Vancomycin) 1 dose .XX ASDIRECTED VEE - Exam Central Line Total Time: 3Days 23Hours Physical Findings Comments:: General: Obese middle aged male in no distress. Sitting up in the chair. CVS : S1S2 appreciated. regular rate and rhythm. lungs: clear bilaterally, no rales or wheezes. pa: soft, obese, non tender. ext: no clubbing or cyanosis. Some peripheral edema 1+ neuro: moves all extremities psych: flat affect. low mood. - Patient Data Lab Results Last 24 hrs: Laboratory Results - last 24 hr 10/01/21 Range/Units 06:19 Sodium 147 (136-148) mmol/L Potassium 2.9 L (3.5-5.1) mmol/L Chloride 109 H (98-107) mmol/L Carbon Dioxide 29.6 (21.0-32.0) mmol/L BUN 5 L (7.0-18.0) mg/dL Creatinine 1.1 (0.8-1.3) mg/dL Est Cr Clr Drug Dosing 64.77 mL/min Estimated GFR (MDRD) > 60.0 ml/min Glucose 135 H (74-106) mg/dL Calcium 8.0 L (8.5-10.1) mg/dL Result Diagrams: 09/28/21 05:44 10/01/21 06:19 Sepsis Event Note - Evaluation Sepsis Screening Result: No Definite Risk - Focused Exam Vital Signs: Vital Signs Temp Pulse Pulse Resp BP BP Pulse Ox 10/01/21 11:55 160/74 H 10/01/21 08:18 67 157/66 H 10/01/21 08:00 97.9 F 71 17 157/66 H 95 10/01/21 03:30 98.2 F 66 18 161/67 H 92 L 10/01/21 03:25 161/67 H - Problem List & Annotations (1) Morbid obesity SNOMED Code(s): 455596835 Code(s): E66.01 - MORBID (SEVERE) OBESITY DUE TO EXCESS CALORIES Status: Acute Current Visit: Yes (2) NIKI (acute kidney injury) SNOMED Code(s): 90399602, 87282271 Code(s): N17.9 - ACUTE KIDNEY FAILURE, UNSPECIFIED Status: Acute Current Visit: Yes (3) Proctitis SNOMED Code(s): 5712131 Code(s): K62.89 - OTHER SPECIFIED DISEASES OF ANUS AND RECTUM Status: Acute Current Visit: Yes (4) Septic shock SNOMED Code(s): 80035870 Code(s): A41.9 - SEPSIS, UNSPECIFIED ORGANISM; R65.21 - SEVERE SEPSIS WITH SEPTIC SHOCK Status: Acute Current Visit: Yes (5) DNR (do not resuscitate) Status: Acute Current Visit: Yes - Problem List Review Problem List Initiated/Reviewed/Updated: Yes - My Orders Last 24 Hours: My Active Orders 09/30/21 12:16 Resuscitation Status Routine 09/30/21 15:45 [employer] Generators Discontinue [Cardiac Monitoring Discontinue] [RC] Click to Edit 10/01/21 09:00 lisinopriL [Prinivil] 20 mg PO DAILY 10/01/21 13:15 Enoxaparin [Lovenox] 40 mg SUBCUT DAILY Potassium Chloride 40 meq PO DAILY 10/02/21 05:11 CBC W/O DIFF,HEMOGRAM [HEME] AM - Plan Plan:: 65 yo male admitted for septic shock etiology unclear. Could be due to a GI source. Septic shock: weaned off levophed. Pt is on Vanc and Zosyn. Will DC vanc. Proctitis: continue Zosyn to completed a 10 day course of Abx. GI bleed: Hb stable. on protonix. PAF- currently in NSR. On metoprolol. Not on technician terminal and repeater anticoagulation. Will likely need to start this at a later time once more stable and no signs of GI bleed. HTN Stable on BP meds. Hypokalemia Replace K. Obesity Generalized weakness and debility PT/OT eval and treat Dysphagia ST eval and treat Parkinson's disease pt has gait instability continue with home Rx's. DVT prophylaxis start lovenox SQ daily Hypokalemia Replace K.
[2021-10-01] MEDS: Enoxaparin 40 MG/0.4 ML Syringe SUBCUT SCH (14:10)
[2021-10-01] MEDS: Potassium Chloride 20 MEQ Tab.ER PO SCH (14:10)
[2021-10-02] MEDS: Piperacillin/Tazobactam 3.375 GM in Sodium Chloride 0.9% 100 ML IV SCH ×4 (03:48→20:02)
[2021-10-02] MEDS: hydrALAZINE 25 MG Tab PO SCH ×3 (03:53→19:58)
[2021-10-02] MEDS: Metoprolol Tartrate 50 MG Tab PO SCH ×2 (09:16→20:02)
[2021-10-02] MEDS: Sertraline 50 MG Tab PO SCH (09:21)
[2021-10-02] MEDS: Potassium Chloride 20 MEQ Tab.ER PO SCH (09:21)
[2021-10-02] MEDS: Lisinopril 10 MG Tab PO SCH (09:22)
[2021-10-02] MEDS: Gabapentin 300 MG Cap PO SCH ×2 (09:23→20:01)
[2021-10-02] MEDS: Enoxaparin 40 MG/0.4 ML Syringe SUBCUT SCH (09:23)
[2021-10-02] MEDS: Pantoprazole 40 MG/10 ML Syringe IV SCH ×2 (11:49→20:52)
[2021-10-02 14:10] LABS: BLOOD UREA NITROGEN,BUN 6 mg/dL (7.0-18.0); CARBON DIOXIDE,CO2 30.4 mmol/L (21.0-32.0); CHLORIDE,CL 109 mmol/L (98-107); GLUCOSE RANDOM 112 mg/dL (74-106); POTASSIUM,K 3.1 mmol/L (3.5-5.1); SODIUM,NA 147 mmol/L (136-148)
[2021-10-02] MEDS ORDERED: Potassium Chloride 20 MEQ Tab.ER PO ONE (15:13)
--- NOTE | 2021-10-02 15:24 | PCM.PN ---
- General Info Date of Service: 10/02/21 - Review of Systems Systems Review Comment:: reports generalized weakness, has been having loose stools - Patient Data Vitals - Most Recent: Last Vital Signs Temp 36.0 C L 10/02/21 12:00 Pulse 62 10/02/21 12:00 Resp 18 10/02/21 12:00 BP 165/79 H 10/02/21 12:00 Pulse Ox 93 L 10/02/21 12:00 Weight - Most Recent: 99.31 kg I&O - Last 24 Hours: Intake & Output 10/02/21 10/02/21 10/02/21 06:59 14:59 22:59 Intake Total 550 Output Total 600 Balance -50 Lab Results Last 24 Hours: Laboratory Results - last 24 hr 10/02/21 10/02/21 Range/Units 05:25 05:25 WBC 8.17 (4.0-11.0) K/uL RBC 3.96 L (4.50-5.90) M/uL Hgb 11.8 L (13.0-17.0) g/dL Hct 34.5 L (38.0-50.0) % MCV 87.1 (80.0-98.0) fL MCH 29.8 (27.0-32.0) pg MCHC 34.2 (31.0-37.0) g/dL RDW Std Deviation 45.6 (28.0-62.0) fl RDW Coeff of Yaneli 15 (11.0-15.0) % Plt Count 348 (150-400) K/uL MPV 9.90 (7.40-12.00) fL Nucleated RBC % 0.0 /100WBC Nucleated RBCs # 0 K/uL Sodium 147 (136-148) mmol/L Potassium 3.1 L (3.5-5.1) mmol/L Chloride 109 H (98-107) mmol/L Carbon Dioxide 30.4 (21.0-32.0) mmol/L BUN 6 L (7.0-18.0) mg/dL Creatinine 1.1 (0.8-1.3) mg/dL Est Cr Clr Drug Dosing 64.77 mL/min Estimated GFR (MDRD) > 60.0 ml/min Glucose 112 H (74-106) mg/dL Calcium 8.2 L (8.5-10.1) mg/dL Med Orders - Current: Current Medications Acetaminophen (Acetaminophen 325 Mg Tab) 650 mg PO Q6H PRN PRN Reason: Fever Last Admin: 09/30/21 10:44 Dose: 650 mg Documented by: Albuterol/Ipratropium (Albuterol/Ipratropium 3.0-0.5 Mg/3 Ml Neb Soln) 3 ml NEB Q4H PRN PRN Reason: Cough Last Admin: 09/27/21 22:28 Dose: 3 ml Documented by: Enoxaparin Sodium (Enoxaparin 40 Mg/0.4 Ml Syringe) 40 mg SUBCUT DAILY [facility] Last Admin: 10/02/21 09:23 Dose: 40 mg Documented by: Gabapentin (Gabapentin 300 Mg Cap) 300 mg PO BID [facility] Last Admin: 10/02/21 09:23 Dose: 300 mg Documented by: Guaifenesin/Dextromethorphan (Guaifenesin/Dextromethorphan 100-10 Mg/5 Ml Soln 10 Ml Cup) 10 ml PO Q6H PRN PRN Reason: Cough Last Admin: 09/28/21 13:25 Dose: 10 ml Documented by: Hydralazine HCl (Hydralazine 25 Mg Tab) 25 mg PO Q8H [facility] Last Admin: 10/02/21 11:46 Dose: 25 mg Documented by: Norepinephrine Bitartrate (Norepinephr-0.9% Nacl 4 Mg/250) 4 mg in 250 mls @ 7.5 mls/hr IV TITRATE [facility]; Protocol Last Titration: 09/25/21 13:10 Dose: 0 mcg/min, 0 mls/hr Documented by: Piperacillin Sod/Tazobactam (Sod 3.375 gm/ Sodium Chloride) 100 mls @ 200 mls/hr IV Q6H [facility] Last Admin: 10/02/21 09:24 Dose: 200 mls/hr Documented by: Lisinopril (Lisinopril 10 Mg Tab) 20 mg PO DAILY [facility] Last Admin: 10/02/21 09:22 Dose: 20 mg Documented by: Metoprolol Tartrate (Metoprolol Tartrate 50 Mg Tab) 100 mg PO Q12H VEE Last Admin: 10/02/21 09:16 Dose: 100 mg Documented by: Ondansetron HCl (Ondansetron 4 Mg/2 Ml Sdv) 4 mg IVPUSH Q6H PRN PRN Reason: Nausea/Vomiting Pantoprazole Sodium (Pantoprazole 40 Mg/10 Ml Syringe) 40 mg IV Q12H [facility] Last Admin: 10/02/21 11:49 Dose: 40 mg Documented by: Potassium Chloride (Potassium Chloride 20 Meq Tab.Er) 40 meq PO DAILY [facility] Last Admin: 10/02/21 09:21 Dose: 40 meq Documented by: Sertraline HCl (Sertraline 50 Mg Tab) 50 mg PO DAILY [facility] Last Admin: 10/02/21 09:21 Dose: 50 mg Documented by: Sodium Chloride (Sodium Chloride 0.65% Nasal [place] 45 Ml Bottle) 2 ml DUKE Q2H PRN PRN Reason: Nasal Dryness Discontinued Medications Albuterol/Ipratropium (Albuterol/Ipratropium 3.0-0.5 Mg/3 Ml Neb Soln) 3 ml NEB ONETIME ONE Stop: 09/26/21 07:29 Last Admin: 09/26/21 07:57 Dose: 3 ml Documented by: Amiodarone HCl (Amiodarone 200 Mg Tab) 200 mg PO DAILY [facility] Last Admin: 09/27/21 08:38 Dose: 200 mg Documented by: Amiodarone HCl (Amiodarone 200 Mg Tab) 400 mg PO BID [facility] Last Admin: 09/28/21 09:43 Dose: 400 mg Documented by: Digoxin (Digoxin 500 Mcg/2 Ml Amp) 250 mcg IVPUSH ONETIME ONE Stop: 09/24/21 20:35 Last Admin: 09/24/21 21:32 Dose: 250 mcg Documented by: Digoxin (Digoxin 500 Mcg/2 Ml Amp) 500 mcg IVPUSH ONETIME ONE Stop: 09/27/21 21:56 Last Admin: 09/27/21 22:03 Dose: 500 mcg Documented by: Digoxin (Digoxin 500 Mcg/2 Ml Amp) 250 mcg IVPUSH ONETIME ONE Stop: 09/28/21 04:01 Last Admin: 09/28/21 03:58 Dose: 250 mcg Documented by: Digoxin (Digoxin 250 Mcg Tab) 250 mcg PO DAILY [facility] Last Admin: 09/28/21 11:02 Dose: 250 mcg Documented by: Diltiazem HCl (Diltiazem 25 Mg/5 Ml Sdv) 20 mg IVPUSH ONETIME ONE Stop: 09/24/21 15:41 Last Admin: 09/24/21 15:50 Dose: 20 mg Documented by: Diltiazem HCl (Diltiazem 25 Mg/5 Ml Sdv) 10 mg IVPUSH ONETIME ONE Stop: 09/27/21 15:10 Last Admin: 09/27/21 15:35 Dose: 10 mg Documented by: Diltiazem HCl (Diltiazem 25 Mg/5 Ml Sdv) 20 mg IVPUSH ONETIME ONE Stop: 09/27/21 21:51 Last Admin: 09/27/21 21:51 Dose: 20 mg Documented by: Diltiazem HCl (Diltiazem 25 Mg/5 Ml Sdv) Confirm Administered Dose 25 mg .ROUTE .STK-MED ONE Stop: 09/27/21 21:47 Last Admin: 09/27/21 21:54 Dose: Not Given Documented by: Furosemide (Furosemide 40 Mg/4 Ml Vial) 40 mg IVPUSH NOW ONE Stop: 09/29/21 10:28 Last Admin: 09/29/21 11:31 Dose: 40 mg Documented by: Sodium Chloride (Normal Saline) 1,000 mls @ 999 mls/hr IV .Bolus ONE Stop: 09/23/21 15:38 Last Admin: 09/23/21 14:40 Dose: 999 mls/hr Documented by: Vancomycin HCl 1.5 gm/ Premix 300 mls @ 200 mls/hr IV Q24H VEE Stop: 09/26/21 19:30 Last Admin: 09/26/21 16:04 Dose: 200 mls/hr Documented by: Sodium Chloride (Normal Saline) 1,000 mls @ 125 mls/hr IV ASDIRECTED VEE Last Admin: 09/24/21 21:43 Dose: 125 mls/hr Documented by: Diltiazem HCl 100 mg/ Sodium (Chloride) 100 mls @ 5 mls/hr IV NOW VEE; Protocol Last Titration: 09/24/21 21:00 Dose: 0 mg/hr, 0 mls/hr Documented by: Heparin Sodium/Sodium Chloride (Heparin 25,000 Units In 1/2 Ns 500 Ml) 500 mls @ 21.84 mls/hr IV TITRATE VEE; Protocol Sodium Chloride (Normal Saline) 500 mls @ 999 mls/hr IV .BOLUS ONE Stop: 09/24/21 19:53 Last Admin: 09/24/21 20:35 Dose: 999 mls/hr Documented by: Amiodarone HCl/Dextrose 150 mg (/ Premix) 100 mls @ 400 mls/hr IV NOW ONE; Protocol Stop: 09/24/21 20:48 Last Admin: 09/24/21 21:33 Dose: 400 mls/hr Documented by: Amiodarone HCl/Dextrose (Nexterone In Dextrose 360 Mg/200 Ml) 360 mg in 200 mls @ 33.333 mls/hr IV ASDIRECTED [facility]; Protocol Last Admin: 09/25/21 15:23 Dose: 0.5 mg/min, 16.667 mls/hr Documented by: Amiodarone HCl/Dextrose (Nexterone In Dextrose 360 Mg/200 Ml) 360 mg in 200 mls @ 16.667 mls/hr IV ASDIRECTED [facility]; Protocol Stop: 09/26/21 22:01 Pantoprazole Sodium 40 mg/ (Premix) 10 mls @ 300 mls/hr IV Q12H [facility] Last Admin: 09/26/21 08:03 Dose: 300 mls/hr Documented by: Magnesium Sulfate 2 gm/ Premix 50 mls @ 25 mls/hr IV ONETIME ONE Stop: 09/26/21 11:44 Last Admin: 09/26/21 10:40 Dose: 25 mls/hr Documented by: Vancomycin HCl 1.5 gm/ Premix 300 mls @ 200 mls/hr IV Q12H [facility] Last Admin: 09/28/21 18:45 Dose: Not Given Documented by: Sodium Chloride (Normal Saline) 1,000 mls @ 100 mls/hr IV Q10H [facility] Last Admin: 09/28/21 18:45 Dose: Not Given Documented by: Vancomycin HCl 1.5 gm/ Premix 300 mls @ 200 mls/hr IV Q24H [facility] Lisinopril (Lisinopril 10 Mg Tab) 10 mg PO DAILY [facility] Last Admin: 09/30/21 08:54 Dose: 10 mg Documented by: Lisinopril (Lisinopril 10 Mg Tab) 10 mg PO ONETIME ONE Stop: 09/30/21 11:31 Last Admin: 09/30/21 12:00 Dose: 10 mg Documented by: Metoprolol Tartrate (Metoprolol Tartrate 25 Mg Tab) 25 mg PO BID [facility] Last Admin: 09/28/21 09:52 Dose: 25 mg Documented by: Metoprolol Tartrate (Metoprolol Tartrate 50 Mg Tab) 50 mg PO BID [facility] Last Admin: 09/29/21 09:14 Dose: 50 mg Documented by: Metoprolol Tartrate (Metoprolol Tartrate 25 Mg Tab) 25 mg PO ONETIME ONE Stop: 09/28/21 14:16 Last Admin: 09/28/21 14:26 Dose: 25 mg Documented by: Metoprolol Tartrate (Metoprolol Tartrate 50 Mg Tab) 50 mg PO Q12H [facility] Last Admin: 09/29/21 10:52 Dose: Not Given Documented by: Metoprolol Tartrate (Metoprolol Tartrate 50 Mg Tab) 50 mg PO ONETIME ONE Stop: 09/29/21 11:46 Last Admin: 09/29/21 11:35 Dose: 50 mg Documented by: Pantoprazole Sodium (Pantoprazole 40 Mg/10 Ml Syringe) 40 mg IVPUSH Q12HR [facility] Last Admin: 09/23/21 21:18 Dose: Not Given Documented by: Pantoprazole Sodium (Pantoprazole 40 Mg/10 Ml Syringe) 40 mg IVPUSH Q12HR [facility] Last Admin: 09/25/21 08:03 Dose: 40 mg Documented by: Potassium Chloride (Potassium Chloride 10% 20 Meq/15 Ml Soln 30 Ml Ud Cup) 40 meq PO ONETIME ONE Stop: 09/24/21 11:32 Last Admin: 09/24/21 12:02 Dose: 40 meq Documented by: Potassium Chloride (Potassium Chloride 20 Meq Tab.Er) 40 meq PO ONETIME ONE Stop: 09/26/21 09:09 Last Admin: 09/26/21 10:00 Dose: 40 meq Documented by: Potassium Chloride (Potassium Chloride 20 Meq Tab.Er) 40 meq PO ONETIME ONE Stop: 09/27/21 22:01 Last Admin: 09/27/21 22:18 Dose: 40 meq Documented by: Potassium Chloride (Potassium Chloride 10% 20 Meq/15 Ml Soln 30 Ml Ud Cup) 40 meq PO ONETIME ONE Stop: 09/30/21 09:23 Last Admin: 09/30/21 10:44 Dose: 40 meq Documented by: Potassium Chloride (Potassium Chloride 10% 20 Meq/15 Ml Soln 30 Ml Ud Cup) 40 meq PO DAILY [facility] Last Admin: 10/01/21 14:45 Dose: Not Given Documented by: Potassium Chloride (Potassium Chloride 20 Meq Tab.Er) 40 meq PO ONETIME ONE Stop: 10/02/21 15:14 Sodium Chloride (Sodium Chloride 0.65% Nasal [place] 45 Ml Bottle) 0 ml DUKE Q2H PRN PRN Reason: Dryness Last Admin: 09/26/21 05:35 Dose: 1 spray Documented by: Vancomycin HCl (Pharmacy To Dose - Vancomycin) 1 dose .XX ASDIRECTED VEE - Exam Central Line Total Time: 3Days 23Hours General: Alert, Oriented Neck: Supple Lungs: Clear to Auscultation, Normal Respiratory Effort Cardiovascular: Regular Rate, Regular Rhythm GI/Abdominal Exam: Soft, No Distention Extremities: Non-Tender, No Pedal Edema Skin: Warm, Dry, Intact Neurological: No New Focal Deficit - Patient Data Lab Results Last 24 hrs: Laboratory Results - last 24 hr 10/02/21 10/02/21 Range/Units 05:25 05:25 WBC 8.17 (4.0-11.0) K/uL RBC 3.96 L (4.50-5.90) M/uL Hgb 11.8 L (13.0-17.0) g/dL Hct 34.5 L (38.0-50.0) % MCV 87.1 (80.0-98.0) fL MCH 29.8 (27.0-32.0) pg MCHC 34.2 (31.0-37.0) g/dL RDW Std Deviation 45.6 (28.0-62.0) fl RDW Coeff of Yaneli 15 (11.0-15.0) % Plt Count 348 (150-400) K/uL MPV 9.90 (7.40-12.00) fL Nucleated RBC % 0.0 /100WBC Nucleated RBCs # 0 K/uL Sodium 147 (136-148) mmol/L Potassium 3.1 L (3.5-5.1) mmol/L Chloride 109 H (98-107) mmol/L Carbon Dioxide 30.4 (21.0-32.0) mmol/L BUN 6 L (7.0-18.0) mg/dL Creatinine 1.1 (0.8-1.3) mg/dL Est Cr Clr Drug Dosing 64.77 mL/min Estimated GFR (MDRD) > 60.0 ml/min Glucose 112 H (74-106) mg/dL Calcium 8.2 L (8.5-10.1) mg/dL Result Diagrams: 10/02/21 05:25 10/02/21 05:25 Sepsis Event Note - Evaluation Sepsis Screening Result: No Definite Risk - Focused Exam Vital Signs: Vital Signs Temp Pulse Pulse Resp BP BP BP 10/02/21 12:00 36.0 C L 62 18 165/79 H 173/81 H 10/02/21 11:59 36.1 C 64 20 164/77 H 10/02/21 11:46 164/77 H 10/02/21 09:22 174/81 H 10/02/21 09:16 63 174/81 H 10/02/21 08:00 36.1 C 63 16 162/73 H 10/02/21 07:00 36.4 C 63 18 174/81 H 10/02/21 03:53 36.9 C 66 16 152/68 H 152/68 H Pulse Ox 10/02/21 12:00 93 L 10/02/21 11:59 92 L 10/02/21 11:46 10/02/21 09:22 10/02/21 09:16 10/02/21 08:00 92 L 10/02/21 07:00 93 L 10/02/21 03:53 94 L - Problem List & Annotations (1) NIKI (acute kidney injury) SNOMED Code(s): 04006733, 30553839 Code(s): N17.9 - ACUTE KIDNEY FAILURE, UNSPECIFIED Status: Acute Current Visit: Yes (2) Proctitis SNOMED Code(s): 6037816 Code(s): K62.89 - OTHER SPECIFIED DISEASES OF ANUS AND RECTUM Status: Acute Current Visit: Yes (3) Septic shock SNOMED Code(s): 23351787 Code(s): A41.9 - SEPSIS, UNSPECIFIED ORGANISM; R65.21 - SEVERE SEPSIS WITH SEPTIC SHOCK Status: Acute Current Visit: Yes - Problem List Review Problem List Initiated/Reviewed/Updated: Yes - My Orders Last 24 Hours: My Active Orders 10/03/21 05:11 BASIC METABOLIC PANEL,BMP [CHEM] AM - Plan Plan:: 65 yo male admitted for septic shock etiology unclear. Could be due to a GI source. Septic shock: weaned off levophed. Pt is on Zosyn. Proctitis: continue Zosyn to completed a 10 day course of Abx. GI bleed: likely lower source due to rectal inflammation, Hb stable. on protonix. PAF- currently in NSR. On metoprolol. has been loaded with amiodarone. 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 Will likely need to start this at a later time once more stable and no signs of GI bleed. HTN Stable on BP meds. Generalized weakness and debility PT/OT eval and treat, will likely need swing bed or SNF placement Dysphagia ST eval and treat Parkinson's disease pt has gait instability continue with home Rx's. DVT prophylaxis start lovenox SQ daily
[2021-10-02] MEDS ORDERED: Loperamide 2 MG Cap PO ONE (17:22)
[2021-10-02] MEDS: Acetaminophen 325 MG Tab PO PRN (17:31)
[2021-10-02] MEDS ORDERED: Cocoa Butter/Phenylephrine Rectal Supp RECTAL ONE (18:30)
[2021-10-03] MEDS: Piperacillin/Tazobactam 3.375 GM in Sodium Chloride 0.9% 100 ML IV SCH ×2 (03:29→09:51)
[2021-10-03] MEDS: hydrALAZINE 25 MG Tab PO SCH ×2 (03:34→11:24)
[2021-10-03 07:19] LABS: BLOOD UREA NITROGEN,BUN 6 mg/dL (7.0-18.0); CARBON DIOXIDE,CO2 29.2 mmol/L (21.0-32.0); CHLORIDE,CL 110 mmol/L (98-107); GLUCOSE RANDOM 125 mg/dL (74-106); POTASSIUM,K 3.4 mmol/L (3.5-5.1); SODIUM,NA 146 mmol/L (136-148)
[2021-10-03] MEDS: Potassium Chloride 20 MEQ Tab.ER PO SCH (09:49)
[2021-10-03] MEDS: Sertraline 50 MG Tab PO SCH (09:49)
[2021-10-03] MEDS: Gabapentin 300 MG Cap PO SCH (09:50)
[2021-10-03] MEDS: Pantoprazole 40 MG/10 ML Syringe IV SCH (09:51)
[2021-10-03] MEDS: Enoxaparin 40 MG/0.4 ML Syringe SUBCUT SCH (09:51)
[2021-10-03] MEDS: Metoprolol Tartrate 50 MG Tab PO SCH (09:52)
[2021-10-03] MEDS ORDERED: Lisinopril 10 MG Tab PO ONE (12:00)
--- NOTE | 2021-10-03 12:01 | PCM.DCSUM1 ---
Discharge Summary - Discharge Data Discharge Date: 10/03/21 Discharge Disposition: DC/Tfer to SNF 03 Condition: Good - Referral to Home Health Primary Care Physician: PCP None - Discharge Diagnosis/Problem(s) (1) NIKI (acute kidney injury) SNOMED Code(s): 51932662, 86759625 ICD Code: N17.9 - ACUTE KIDNEY FAILURE, UNSPECIFIED Status: Acute Current Visit: Yes (2) Proctitis SNOMED Code(s): 9062647 ICD Code: K62.89 - OTHER SPECIFIED DISEASES OF ANUS AND RECTUM Status: Acute Current Visit: Yes (3) Septic shock SNOMED Code(s): 75518770 ICD Code: A41.9 - SEPSIS, UNSPECIFIED ORGANISM; R65.21 - SEVERE SEPSIS WITH SEPTIC SHOCK Status: Acute Current Visit: Yes - Patient Summary/Data Consults: Consultations 09/26/21 16:54 Consult to Physical Therapy [PT Evaluation and Treatment] [CONS] Routine 09/28/21 14:13 Consult to Speech Language Pathology [[employer] Evaluation and Treatment] [CONS] Routine Hospital Course: 66 yo male with pmh of hypertension and Parkinson's disease who was transferred from [facility] for treatment of septic shock from proctitis. He presented in [facility] after passing out in the bathroom after having a bloody bowel movement. He was noted to be hypotensive with WBC of 19,000 and Hgb of 15. He was bolused 3 liters and given vancomycin and Zosyn. CT scan of abdomen and pelvis reported rectal wall thickening and inflammation. He was started on Levophed. Repeat Hgb this morning after resuscitation was 13. As [facility] lacked ICU beds he was transferred to closest ICU bed available which was here in [place]. In [place] he had a central and a-line placed. He was treated with Vancomycin an Zosyn. He did develop paroxysmal a.fib for which he was loaded with IV amiodarone. When blood pressures improved and he was weaned off Levophed. He was switch to oral metoprolol with good rate control of his a.fib. He did not have any more bloody bowel movements and his Hgb remained stable at 12. I consulted our general surgeon Dr. Aparicio who recommended outpatient colonoscopy. He has had ten days of IV antibiotics. I spoke with SAAD He regarding need for colonoscopy and the decisions that will be need to be made regarding anticoagulation. Patient was discharged and his will drive him to SNF at [facility] for further rehab. - Patient Instructions Diet: Regular Diet as Tolerated Activity: As Tolerated - Discharge Plan Prescriptions/Med Rec: Metoprolol Tartrate [Lopressor] 100 mg PO Q12H #60 tablet Home Medications: Home Meds Benazepril/Hydrochlorothiazide [Lotensin Hct 20-25 mg Tablet] 1 tab PO DAILY 09/25/21 [History] Diclofenac Sodium 1 applic TOP QID PRN 09/25/21 [History] Docusate Sodium [Colace] 100 mg PO BID 09/25/21 [History] Furosemide 20 mg PO DAILY 09/25/21 [History] Gabapentin [Neurontin] 300 mg PO BID 09/25/21 [History] Pantoprazole [ProTONIX] 40 mg PO DAILY 09/25/21 [History] Semaglutide [Ozempic] 0.5 mg SUBCUT WEEKLY 09/25/21 [History] Sertraline [Zoloft] 50 mg PO DAILY 09/25/21 [History] buPROPion HCL [Bupropion Xl] 150 mg PO DAILY 09/25/21 [History] polyethylene glycoL 3350 [MiraLAX] 17 gm PO DAILY 09/25/21 [History] Metoprolol Tartrate [Lopressor] 100 mg PO Q12H #60 tablet 10/03/21 [Rx] - Discharge Summary/Plan Comment DC Time >30 min.: Yes Total # of Minutes for Discharge Time: 35 - Patient Data Vitals - Most Recent: Last Vital Signs Temp 36.2 C 10/03/21 07:00 Pulse 63 10/03/21 09:52 Resp 20 10/03/21 07:00 BP 140/61 10/03/21 11:24 Pulse Ox 93 L 10/03/21 07:00 Weight - Most Recent: 99.368 kg I&O - Last 24 hours: Intake & Output 10/02/21 10/03/21 10/03/21 22:59 06:59 14:59 Intake Total 820 450 Output Total 700 550 Balance 120 -100 Lab Results - Last 24 hrs: Laboratory Results - last 24 hr 10/02/21 10/03/21 10/03/21 Range/Units 05:25 06:35 06:35 WBC 9.58 (4.0-11.0) K/uL RBC 4.00 L (4.50-5.90) M/uL Hgb 12.0 L (13.0-17.0) g/dL Hct 35.3 L (38.0-50.0) % MCV 88.3 (80.0-98.0) fL MCH 30.0 (27.0-32.0) pg MCHC 34.0 (31.0-37.0) g/dL RDW Std Deviation 47.8 (28.0-62.0) fl RDW Coeff of Yaneli 15 (11.0-15.0) % Plt Count 365 (150-400) K/uL MPV 10.30 (7.40-12.00) fL Neut % (Auto) 75.0 (48.0-80.0) % Lymph % (Auto) 13.9 L (16.0-40.0) % Power % (Auto) 7.8 (0.0-15.0) % Eos % (Auto) 3.0 (0.0-7.0) % Baso % (Auto) 0.3 (0.0-1.5) % Neut # (Auto) 7.2 H (1.4-5.7) K/uL Lymph # (Auto) 1.3 (0.6-2.4) K/uL Power # (Auto) 0.8 (0.0-0.8) K/uL Eos # (Auto) 0.3 (0.0-0.7) K/uL Baso # (Auto) 0.0 (0.0-0.1) K/uL Nucleated RBC % 0.0 /100WBC Nucleated RBCs # 0 K/uL Sodium 147 146 (136-148) mmol/L Potassium 3.1 L 3.4 L (3.5-5.1) mmol/L Chloride 109 H 110 H (98-107) mmol/L Carbon Dioxide 30.4 29.2 (21.0-32.0) mmol/L BUN 6 L 6 L (7.0-18.0) mg/dL Creatinine 1.1 1.2 (0.8-1.3) mg/dL Est Cr Clr Drug Dosing 64.77 59.38 mL/min Estimated GFR (MDRD) > 60.0 > 60.0 ml/min Glucose 112 H 125 H (74-106) mg/dL Calcium 8.2 L 8.2 L (8.5-10.1) mg/dL Med Orders - Current: Current Medications Acetaminophen (Acetaminophen 325 Mg Tab) 650 mg PO Q6H PRN PRN Reason: Fever Last Admin: 10/02/21 17:31 Dose: 650 mg Documented by: Albuterol/Ipratropium (Albuterol/Ipratropium 3.0-0.5 Mg/3 Ml Neb Soln) 3 ml NEB Q4H PRN PRN Reason: Cough Last Admin: 09/27/21 22:28 Dose: 3 ml Documented by: Enoxaparin Sodium (Enoxaparin 40 Mg/0.4 Ml Syringe) 40 mg SUBCUT DAILY [facility] Last Admin: 10/03/21 09:51 Dose: 40 mg Documented by: Gabapentin (Gabapentin 300 Mg Cap) 300 mg PO BID [facility] Last Admin: 10/03/21 09:50 Dose: 300 mg Documented by: Guaifenesin/Dextromethorphan (Guaifenesin/Dextromethorphan 100-10 Mg/5 Ml Soln 10 Ml Cup) 10 ml PO Q6H PRN PRN Reason: Cough Last Admin: 09/28/21 13:25 Dose: 10 ml Documented by: Hydralazine HCl (Hydralazine 25 Mg Tab) 25 mg PO Q8H [facility] Last Admin: 10/03/21 11:24 Dose: 25 mg Documented by: Norepinephrine Bitartrate (Norepinephr-0.9% Nacl 4 Mg/250) 4 mg in 250 mls @ 7.5 mls/hr IV TITRATE [facility]; Protocol Last Titration: 09/25/21 13:10 Dose: 0 mcg/min, 0 mls/hr Documented by: Piperacillin Sod/Tazobactam (Sod 3.375 gm/ Sodium Chloride) 100 mls @ 200 mls/hr IV Q6H [facility] Last Admin: 10/03/21 09:51 Dose: 200 mls/hr Documented by: Lisinopril (Lisinopril 10 Mg Tab) 20 mg PO DAILY [facility] Last Admin: 10/02/21 09:22 Dose: 20 mg Documented by: Metoprolol Tartrate (Metoprolol Tartrate 50 Mg Tab) 100 mg PO Q12H [facility] Last Admin: 10/03/21 09:52 Dose: 100 mg Documented by: Ondansetron HCl (Ondansetron 4 Mg/2 Ml Sdv) 4 mg IVPUSH Q6H PRN PRN Reason: Nausea/Vomiting Pantoprazole Sodium (Pantoprazole 40 Mg/10 Ml Syringe) 40 mg IV Q12H [facility] Last Admin: 10/03/21 09:51 Dose: 40 mg Documented by: Potassium Chloride (Potassium Chloride 20 Meq Tab.Er) 40 meq PO DAILY [facility] Last Admin: 10/03/21 09:49 Dose: 40 meq Documented by: Sertraline HCl (Sertraline 50 Mg Tab) 50 mg PO DAILY [facility] Last Admin: 10/03/21 09:49 Dose: 50 mg Documented by: Sodium Chloride (Sodium Chloride 0.65% Nasal [place] 45 Ml Bottle) 2 ml DUKE Q2H PRN PRN Reason: Nasal Dryness Discontinued Medications Albuterol/Ipratropium (Albuterol/Ipratropium 3.0-0.5 Mg/3 Ml Neb Soln) 3 ml NEB ONETIME ONE Stop: 09/26/21 07:29 Last Admin: 09/26/21 07:57 Dose: 3 ml Documented by: Amiodarone HCl (Amiodarone 200 Mg Tab) 200 mg PO DAILY [facility] Last Admin: 09/27/21 08:38 Dose: 200 mg Documented by: Amiodarone HCl (Amiodarone 200 Mg Tab) 400 mg PO BID [facility] Last Admin: 09/28/21 09:43 Dose: 400 mg Documented by: [place] Butter/Phenylephrine ([place] Butter/Phenylephrine Rectal Supp) 1 each RECTAL ONETIME ONE Stop: 10/02/21 18:31 Digoxin (Digoxin 500 Mcg/2 Ml Amp) 250 mcg IVPUSH ONETIME ONE Stop: 09/24/21 20:35 Last Admin: 09/24/21 21:32 Dose: 250 mcg Documented by: Digoxin (Digoxin 500 Mcg/2 Ml Amp) 500 mcg IVPUSH ONETIME ONE Stop: 09/27/21 21:56 Last Admin: 09/27/21 22:03 Dose: 500 mcg Documented by: Digoxin (Digoxin 500 Mcg/2 Ml Amp) 250 mcg IVPUSH ONETIME ONE Stop: 09/28/21 04:01 Last Admin: 09/28/21 03:58 Dose: 250 mcg Documented by: Digoxin (Digoxin 250 Mcg Tab) 250 mcg PO DAILY VEE Last Admin: 09/28/21 11:02 Dose: 250 mcg Documented by: Diltiazem HCl (Diltiazem 25 Mg/5 Ml Sdv) 20 mg IVPUSH ONETIME ONE Stop: 09/24/21 15:41 Last Admin: 09/24/21 15:50 Dose: 20 mg Documented by: Diltiazem HCl (Diltiazem 25 Mg/5 Ml Sdv) 10 mg IVPUSH ONETIME ONE Stop: 09/27/21 15:10 Last Admin: 09/27/21 15:35 Dose: 10 mg Documented by: Diltiazem HCl (Diltiazem 25 Mg/5 Ml Sdv) 20 mg IVPUSH ONETIME ONE Stop: 09/27/21 21:51 Last Admin: 09/27/21 21:51 Dose: 20 mg Documented by: Diltiazem HCl (Diltiazem 25 Mg/5 Ml Sdv) Confirm Administered Dose 25 mg .ROUTE .STK-MED ONE Stop: 09/27/21 21:47 Last Admin: 09/27/21 21:54 Dose: Not Given Documented by: Furosemide (Furosemide 40 Mg/4 Ml Vial) 40 mg IVPUSH NOW ONE Stop: 09/29/21 10:28 Last Admin: 09/29/21 11:31 Dose: 40 mg Documented by: Sodium Chloride (Normal Saline) 1,000 mls @ 999 mls/hr IV .Bolus ONE Stop: 09/23/21 15:38 Last Admin: 09/23/21 14:40 Dose: 999 mls/hr Documented by: Vancomycin HCl 1.5 gm/ Premix 300 mls @ 200 mls/hr IV Q24H VEE Stop: 09/26/21 19:30 Last Admin: 09/26/21 16:04 Dose: 200 mls/hr Documented by: Sodium Chloride (Normal Saline) 1,000 mls @ 125 mls/hr IV ASDIRECTED [facility] Last Admin: 09/24/21 21:43 Dose: 125 mls/hr Documented by: Diltiazem HCl 100 mg/ Sodium (Chloride) 100 mls @ 5 mls/hr IV NOW [facility]; Protocol Last Titration: 09/24/21 21:00 Dose: 0 mg/hr, 0 mls/hr Documented by: Heparin Sodium/Sodium Chloride (Heparin 25,000 Units In 1/2 Ns 500 Ml) 500 mls @ 21.84 mls/hr IV TITRATE VEE; Protocol Sodium Chloride (Normal Saline) 500 mls @ 999 mls/hr IV .BOLUS ONE Stop: 09/24/21 19:53 Last Admin: 09/24/21 20:35 Dose: 999 mls/hr Documented by: Amiodarone HCl/Dextrose 150 mg (/ Premix) 100 mls @ 400 mls/hr IV NOW ONE; Protocol Stop: 09/24/21 20:48 Last Admin: 09/24/21 21:33 Dose: 400 mls/hr Documented by: Amiodarone HCl/Dextrose (Nexterone In Dextrose 360 Mg/200 Ml) 360 mg in 200 mls @ 33.333 mls/hr IV ASDIRECTED VEE; Protocol Last Admin: 09/25/21 15:23 Dose: 0.5 mg/min, 16.667 mls/hr Documented by: Amiodarone HCl/Dextrose (Nexterone In Dextrose 360 Mg/200 Ml) 360 mg in 200 mls @ 16.667 mls/hr IV ASDIRECTED VEE; Protocol Stop: 09/26/21 22:01 Pantoprazole Sodium 40 mg/ (Premix) 10 mls @ 300 mls/hr IV Q12H [facility] Last Admin: 09/26/21 08:03 Dose: 300 mls/hr Documented by: Magnesium Sulfate 2 gm/ Premix 50 mls @ 25 mls/hr IV ONETIME ONE Stop: 09/26/21 11:44 Last Admin: 09/26/21 10:40 Dose: 25 mls/hr Documented by: Vancomycin HCl 1.5 gm/ Premix 300 mls @ 200 mls/hr IV Q12H [facility] Last Admin: 09/28/21 18:45 Dose: Not Given Documented by: Sodium Chloride (Normal Saline) 1,000 mls @ 100 mls/hr IV Q10H [facility] Last Admin: 09/28/21 18:45 Dose: Not Given Documented by: Vancomycin HCl 1.5 gm/ Premix 300 mls @ 200 mls/hr IV Q24H [facility] Lisinopril (Lisinopril 10 Mg Tab) 10 mg PO DAILY [facility] Last Admin: 09/30/21 08:54 Dose: 10 mg Documented by: Lisinopril (Lisinopril 10 Mg Tab) 10 mg PO ONETIME ONE Stop: 09/30/21 11:31 Last Admin: 09/30/21 12:00 Dose: 10 mg Documented by: Loperamide HCl (Loperamide 2 Mg Cap) 4 mg PO ONETIME ONE Stop: 10/02/21 17:23 Last Admin: 10/02/21 17:31 Dose: 4 mg Documented by: Metoprolol Tartrate (Metoprolol Tartrate 25 Mg Tab) 25 mg PO BID [facility] Last Admin: 09/28/21 09:52 Dose: 25 mg Documented by: Metoprolol Tartrate (Metoprolol Tartrate 50 Mg Tab) 50 mg PO BID [facility] Last Admin: 09/29/21 09:14 Dose: 50 mg Documented by: Metoprolol Tartrate (Metoprolol Tartrate 25 Mg Tab) 25 mg PO ONETIME ONE Stop: 09/28/21 14:16 Last Admin: 09/28/21 14:26 Dose: 25 mg Documented by: Metoprolol Tartrate (Metoprolol Tartrate 50 Mg Tab) 50 mg PO Q12H [facility] Last Admin: 09/29/21 10:52 Dose: Not Given Documented by: Metoprolol Tartrate (Metoprolol Tartrate 50 Mg Tab) 50 mg PO ONETIME ONE Stop: 09/29/21 11:46 Last Admin: 09/29/21 11:35 Dose: 50 mg Documented by: Pantoprazole Sodium (Pantoprazole 40 Mg/10 Ml Syringe) 40 mg IVPUSH Q12HR [facility] Last Admin: 09/23/21 21:18 Dose: Not Given Documented by: Pantoprazole Sodium (Pantoprazole 40 Mg/10 Ml Syringe) 40 mg IVPUSH Q12HR [facility] Last Admin: 09/25/21 08:03 Dose: 40 mg Documented by: Potassium Chloride (Potassium Chloride 10% 20 Meq/15 Ml Soln 30 Ml Ud Cup) 40 meq PO ONETIME ONE Stop: 09/24/21 11:32 Last Admin: 09/24/21 12:02 Dose: 40 meq Documented by: Potassium Chloride (Potassium Chloride 20 Meq Tab.Er) 40 meq PO ONETIME ONE Stop: 09/26/21 09:09 Last Admin: 09/26/21 10:00 Dose: 40 meq Documented by: Potassium Chloride (Potassium Chloride 20 Meq Tab.Er) 40 meq PO ONETIME ONE Stop: 09/27/21 22:01 Last Admin: 09/27/21 22:18 Dose: 40 meq Documented by: Potassium Chloride (Potassium Chloride 10% 20 Meq/15 Ml Soln 30 Ml Ud Cup) 40 meq PO ONETIME ONE Stop: 09/30/21 09:23 Last Admin: 09/30/21 10:44 Dose: 40 meq Documented by: Potassium Chloride (Potassium Chloride 10% 20 Meq/15 Ml Soln 30 Ml Ud Cup) 40 meq PO DAILY [facility] Last Admin: 10/01/21 14:45 Dose: Not Given Documented by: Potassium Chloride (Potassium Chloride 20 Meq Tab.Er) 40 meq PO ONETIME ONE Stop: 10/02/21 15:14 Last Admin: 10/02/21 15:33 Dose: 40 meq Documented by: Sodium Chloride (Sodium Chloride 0.65% Nasal [place] 45 Ml Bottle) 0 ml DUKE Q2H PRN PRN Reason: Dryness Last Admin: 09/26/21 05:35 Dose: 1 spray Documented by: Vancomycin HCl (Pharmacy To Dose - Vancomycin) 1 dose .XX ASDIRECTED [facility] Discharge Operative/Procedures - Procedures Performed Arterial Line Indication: hemodynamic monitoring
[2021-10-03] MEDS: Lisinopril 10 MG Tab PO SCH (12:25)
[2021-10-03] MEDS ORDERED: Loperamide 2 MG Cap PO ONE (13:00)
--- NOTE | 2021-10-04 13:10 | PCM.EKG ---
#1 Interpretation EKG Date: 09/24/21 Time: 15:14 Rhythm: A-Fib Rate (Beats/Min): 157 P-Wave: Absent ST-T: Normal
== END 2021-10-03 14:15 | DRG 871 ==
LOC: MW.ICU 13:50 → MW.MS 09-27 15:05
PROVIDERS: ADMIT Internal Medicine; ATTEND Internal Medicine
PROC: 3E033XZ Introduction of Vasopressor into Peripheral Vein, Percutaneous Approach (ICD-10-PCS; principal; 2021-09-23)
PROC: 02H633Z Insertion of Infusion Device into Right Atrium, Percutaneous Approach (ICD-10-PCS; 2021-09-23)
PROC: 03HY32Z Insertion of Monitoring Device into Upper Artery, Percutaneous Approach (ICD-10-PCS; 2021-09-23)
DX: A41.9 Sepsis, unspecified organism (principal); R65.21 Severe sepsis with septic shock; N17.9 Acute kidney failure, unspecified; I50.32 Chronic diastolic (congestive) heart failure; K92.2 Gastrointestinal hemorrhage, unspecified; K62.89 Other specified diseases of anus and rectum; I48.0 Paroxysmal atrial fibrillation; I11.0 Hypertensive heart disease with heart failure; E78.5 Hyperlipidemia, unspecified; Z66 Do not resuscitate; Z20.822 Contact with and (suspected) exposure to COVID-19; G47.33 Obstructive sleep apnea (adult) (pediatric); G20 Parkinson's disease; H54.7 Unspecified visual loss; E11.9 Type 2 diabetes mellitus without complications; R13.10 Dysphagia, unspecified; E87.6 Hypokalemia; E66.01 Morbid (severe) obesity due to excess calories; K52.9 Noninfective gastroenteritis and colitis, unspecified; Z68.33 Body mass index [BMI] 33.0-33.9, adult
CPT/HCPCS: 0240U; 36415; 71045; 80048; 80053; 80162; 80202; 83605; 83735; 85025; 85027; 85610; 85730; 86850; 86900; 86901; 86920; 86921; 86922; 87040; 87045; 87046; 87147; 87324; 87449; 87899; 93005; 93306; 97110; 97163; 97530; 36556; 36620; A9270-GY; C9113; J0282; J1160; J1650; J1940; J2543; J3370; J3475; J3490; J7030; J7620-GY